=== PATIENT | male | born 1950 | race Caucasian/White ===

== ENCOUNTER → 2020-04-23 15:39 | Outpatient (CLI) | payer MEDICARE, OTHER, SELFPAY ==
--- NOTE | 2020-04-23 15:50 | RAD_ITS ---
STUDY: X-RAY - LEFT HAND REASON FOR EXAM: Male, 70 years old. PAIN IN BOTH HANDS. NO KNOWN INJURY. INFLAMMATORY POLYARTHROPATHY. UNABLE TO REMOVE RING OR SPREAD FINGERS VERY WELL. TECHNIQUE: 3 view(s) of the hand. COMPARISON: None. FINDINGS: Normal radiocarpal articulation. Normal distal radioulnar joint. Normal visualized carpal bones. Normal carpal articulations Normal carpometacarpal articulation of the thumb. Normal second through fifth carpometacarpal joints. Normal metacarpi. Normal metacarpophalangeal joint of the thumb. Normal interphalangeal joint of the thumb. Normal proximal and distal phalanges of the thumb. Normal metacarpophalangeal joints of the second through fifth fingers. Normal proximal and distal interphalangeal joints of the second through fifth fingers. Normal phalanges of the second through fifth fingers. The soft tissue structures are unremarkable. RAD/Hand Min 3 Views IMPRESSION: Normal x-ray examination of the hand. Electronically Signed: Chip Mcfadden MD at 20:27 EDT , Service support ,
--- NOTE | 2020-04-23 15:50 | RAD_ITS ---
STUDY: X-RAY - LEFT SHOULDER REASON FOR EXAM: Male, 70 years old. PAIN IN BOTH SHOULDERS. NO KNOWN INJURY. INFLAMMATORY POLYARTHROPATHY TECHNIQUE: 4 view(s) of the shoulder. COMPARISON: None. FINDINGS: Narrowed glenohumeral articulation. Narrowed acromioclavicular joint. Normal acromion. Normal humeral head and visualized proximal humerus. The soft tissue structures are unremarkable. Normal visualized pulmonary apex. RAD/Shoulder min 2 Views IMPRESSION: Degenerative osteoarthritic changes. No evidence for acute fracture Electronically Signed: Chip Mcfadden MD at 16:30 EDT , Service support ,
--- NOTE | 2020-04-23 15:50 | RAD_ITS ---
STUDY: X-RAY - RIGHT HAND REASON FOR EXAM: Male, 70 years old. PAIN IN BOTH HANDS. NO KNOWN INJURY. INFLAMMATORY POLYARTHROPATHY. TECHNIQUE: 3 view(s) of the hand. COMPARISON: None. FINDINGS: Normal radiocarpal articulation. Normal distal radioulnar joint. Normal visualized carpal bones. Normal carpal articulations Normal carpometacarpal articulation of the thumb. Normal second through fifth carpometacarpal joints. Normal metacarpi. Normal metacarpophalangeal joint of the thumb. Normal interphalangeal joint of the thumb. Normal proximal and distal phalanges of the thumb. Normal metacarpophalangeal joints of the second through fifth fingers. Normal proximal and distal interphalangeal joints of the second through fifth fingers. Normal phalanges of the second through fifth fingers. The soft tissue structures are unremarkable. RAD/Hand Min 3 Views IMPRESSION: Normal x-ray examination of the hand. Electronically Signed: Chip Mcfadden MD at 20:27 EDT , Service support ,
--- NOTE | 2020-04-23 15:50 | RAD_ITS ---
STUDY: X-RAY - RIGHT SHOULDER REASON FOR EXAM: Male, 70 years old. PAIN IN BOTH SHOULDERS. NO KNOWN INJURY. INFLAMMATORY POLYARTHROPATHY TECHNIQUE: 4 view(s) of the shoulder. COMPARISON: None. FINDINGS: Narrowed glenohumeral articulation. Minor spurring of the acromioclavicular joint.. Normal acromion. Normal humeral head and visualized proximal humerus. The soft tissue structures are unremarkable. Normal visualized pulmonary apex. RAD/Shoulder min 2 Views IMPRESSION: Degenerative changes. No evidence for acute fracture or other significant bony pathology Electronically Signed: Chip Mcfadden MD at 16:13 EDT , Service support ,
--- NOTE | 2020-04-23 16:18 | RAD_ITS ---
STUDY: X-RAY - PELVIS AND BILATERAL HIPS REASON FOR EXAM: Male, 70 years old. PAIN IN BOTH HIPS FOR A LONG TIME. NO KNOWN RECENT INJURY. INFLAMMATORY POLYARTHROPATHY. TECHNIQUE: AP view of the pelvis.? 2 views of the right hip, and 2 views of the left hip were obtained. COMPARISON: None. FINDINGS: There is a non-specific bowel gas pattern. Normal visualized soft tissue structures. Normal bilateral iliac wings, sacroiliac joints and visualized sacrum. Normal bilateral superior and inferior pubic rami. Normal pubic symphysis. Normal bilateral ischial tuberosities. There is mild narrowing of the hip joints bilaterally with minor acetabular spurring. RAD/Hips B/L min 2 views w/ Pelvis IMPRESSION: Mild degenerative changes of the hips. No acute fracture or other significant bony pathology. Electronically Signed: Chip Mcfadden MD at 20:27 EDT , Service support ,
[2020-04-23 18:14] LABS: Absolute Lymphocyte Count 1.39 X10^3/uL (0.83-4.51); Absolute Neutrophil Count 4.6 X10^3/uL (2.0-7.7); Basophil# 0.04 X10^3/uL; Basophil% 0.6 % (0-1); Eosinophil# 0.09 X10^3/uL; Eosinophils% 1.3 % (0-5); Hematocrit 45.9 % (40-54); Hemoglobin 15.3 g/dL (13.0-16.5); Lymphocyte # 1.39 X10^3/ul (4.0); Lymphocyte % 20.6 % (19-41); Mean Corp Hgb Conc 33.3 g/dL (32-36); Mean Corpuscular Hgb 30.6 pg (27.0-32.0); Mean Corpuscular Volume 91.8 fL (80-94); Mean Platelet Vol. 10.1 fl (6.2-12.0); Monocyte# 0.59 X10^3/uL; Monocyte% 8.7 % (0-10); NRBC Flagged by Analyzer 0 % (0-5); Neutrophil # 4.61 X10^3/uL (2.7-7.7); Neutrophil % 68.4 % (47-70); Platelet Count 222 K/mm3 (150-450); RBC Distribution Width CV 12.7 % (11.6-14.6); RBC Distribution Width SD 42.6 fl (35.1-43.9); White Blood Count 6.8 K/mm3 (4.4-11.0)
[2020-04-23 18:31] LABS: ALB/GLOB Ratio 1.1 RATIO (0.9-2.4); AST(SGOT) 18 U/L (15-37); Alanine Aminotransfer ALT/SGPT 22 U/L (16-61); Albumin, Serum 4.3 g/dL (3.2-5.0); Alkaline Phosphatase 113 U/L (45-117); Anion Gap 2 (5-15); BUN 17 mg/dL (7-18); BUN/Creat Ratio 21.4 RATIO (10-20); Calcium,Total 10.4 mg/dL (8.5-10.1); Chloride 107 mmol/L (98-107); EST Glomerular Filtration Rate 103 mL/min (>60); Est Glom Filt Rate - Afr Amer 124 mL/min (>60); Globulin 3.8 g/dL (2.2-4.2); Glucose 91 mg/dL (74-106); Potassium 3.5 mmol/L (3.5-5.1); Protein, Total 8.1 g/dL (6.4-8.2); Rheumatoid Factor < 10.0 IU/mL (<15); Sodium Level 140 mmol/L (136-145)
[2020-04-24 10:41] LABS: Hepatitis B Surface Antibody Non-Reactive; Hepatitis B Surface Antigen Non-Reactive (Nonreactive); Hepatitis C Antibody Non-Reactive (Nonreactive)
[2020-04-25 12:22] LABS: ANTINUCLEAR ANTIBODIES DIRECT Negative (Negative)
[2020-04-26 06:03] LABS: CCP IgG Antibodies 13 units (0-19); Hepatitis B Core AB IgM Negative (Negative)
== END ==
PROVIDERS: Referring Provider Internal Medicine Rheumatology; Visit Provider Internal Medicine Rheumatology
DX: M06.4 Inflammatory polyarthropathy (principal); H35.30 Unspecified macular degeneration; I25.10 Atherosclerotic heart disease of native coronary artery without angina pectoris; I10 Essential (primary) hypertension; E03.9 Hypothyroidism, unspecified; E78.5 Hyperlipidemia, unspecified
CPT/HCPCS: 36415; 73030; 73130; 73521; 80053; 85025; 86038; 86200; 86431; 86705; 86706; 86803; 87340

== ENCOUNTER → 2020-06-05 11:41 | Outpatient (CLI) | payer MEDICARE, OTHER, SELFPAY ==
[2020-06-05 15:13] LABS: Absolute Lymphocyte Count 0.81 X10^3/uL (0.83-4.51); Absolute Neutrophil Count 6.1 X10^3/uL (2.0-7.7); Basophil# 0.04 X10^3/uL; Basophil% 0.5 % (0-1); Eosinophil# 0.02 X10^3/uL; Eosinophils% 0.3 % (0-5); Hematocrit 49.1 % (40-54); Hemoglobin 15.8 g/dL (13.0-16.5); Lymphocyte # 0.81 X10^3/ul (4.0); Lymphocyte % 11.1 % (19-41); Mean Corp Hgb Conc 32.2 g/dL (32-36); Mean Corpuscular Volume 93.3 fL (80-94); Mean Platelet Vol. 9.7 fl (6.2-12.0); Monocyte# 0.24 X10^3/uL; Monocyte% 3.3 % (0-10); NRBC Flagged by Analyzer 0 % (0-5); Neutrophil # 6.09 X10^3/uL (2.7-7.7); Neutrophil % 83.4 % (47-70); Platelet Count 221 K/mm3 (150-450); RBC Distribution Width CV 13.4 % (11.6-14.6); RBC Distribution Width SD 45.2 fl (35.1-43.9); Red Blood Count 5.26 M/mm3 (4.6-6.2); White Blood Count 7.3 K/mm3 (4.4-11.0)
[2020-06-05 15:38] LABS: ALB/GLOB Ratio 1.2 RATIO (0.9-2.4); AST(SGOT) 22 U/L (15-37); Alanine Aminotransfer ALT/SGPT 31 U/L (16-61); Albumin, Serum 4.2 g/dL (3.2-5.0); Alkaline Phosphatase 99 U/L (45-117); Anion Gap 6 (5-15); BUN 19 mg/dL (7-18); BUN/Creat Ratio 21.2 RATIO (10-20); Calcium,Total 10.7 mg/dL (8.5-10.1); Chloride 102 mmol/L (98-107); EST Glomerular Filtration Rate 90 mL/min (>60); Est Glom Filt Rate - Afr Amer 109 mL/min (>60); Globulin 3.6 g/dL (2.2-4.2); Glucose 117 mg/dL (74-106); Protein, Total 7.8 g/dL (6.4-8.2); Sodium Level 138 mmol/L (136-145)
[2020-06-05 15:59] LABS: PTHIN 92.4 pg/mL (18.4-80.1)
== END ==
PROVIDERS: Referring Provider Internal Medicine Rheumatology; Visit Provider Internal Medicine Rheumatology
DX: M06.4 Inflammatory polyarthropathy (principal); H35.30 Unspecified macular degeneration; I25.10 Atherosclerotic heart disease of native coronary artery without angina pectoris; I10 Essential (primary) hypertension; E03.9 Hypothyroidism, unspecified; E78.5 Hyperlipidemia, unspecified
CPT/HCPCS: 36415; 80053; 83970; 85025

== ENCOUNTER → 2020-06-22 10:17 | Outpatient (CLI) | payer MEDICARE, OTHER, SELFPAY ==
[2020-06-22 09:22] VITALS: BMI 27.6
[2020-06-22 12:41] LABS: Vitamin D,25 Hydroxy 28.2 ng/mL
[2020-06-22 12:54] LABS: Calcium,Total 11.2 mg/dL (8.5-10.1)
== END ==
PROVIDERS: Visit Provider Internal Medicine Endocrinology, Diabetes & Metabolism
DX: E21.0 Primary hyperparathyroidism (principal); E55.9 Vitamin D deficiency, unspecified
CPT/HCPCS: 36415; 82306; 82310

== ENCOUNTER → 2020-08-03 12:33 | Outpatient (CLI) | payer MEDICARE, OTHER, SELFPAY ==
[2020-06-22 09:22] VITALS: BMI 27.6
[2020-08-03 15:18] LABS: Absolute Lymphocyte Count 0.88 X10^3/uL (0.83-4.51); Absolute Neutrophil Count 5.4 X10^3/uL (2.0-7.7); Basophil# 0.05 X10^3/uL; Basophil% 0.7 % (0-1); Eosinophil# 0.04 X10^3/uL; Eosinophils% 0.6 % (0-5); Hemoglobin 14.9 g/dL (13.0-16.5); Lymphocyte # 0.88 X10^3/ul (4.0); Lymphocyte % 12.9 % (19-41); Mean Corp Hgb Conc 33.1 g/dL (32-36); Mean Corpuscular Hgb 31.6 pg (27.0-32.0); Mean Corpuscular Volume 95.3 fL (80-94); Mean Platelet Vol. 9.7 fl (6.2-12.0); Monocyte# 0.32 X10^3/uL; Monocyte% 4.7 % (0-10); NRBC Flagged by Analyzer 0 % (0-5); Neutrophil % 78.9 % (47-70); Platelet Count 212 K/mm3 (150-450); RBC Distribution Width CV 13.6 % (11.6-14.6); RBC Distribution Width SD 47.5 fl (35.1-43.9); Red Blood Count 4.72 M/mm3 (4.6-6.2); White Blood Count 6.8 K/mm3 (4.4-11.0)
[2020-08-03 15:24] LABS: PTHIN 70.5 pg/mL (18.4-80.1)
[2020-08-03 15:28] LABS: Vitamin D,25 Hydroxy 20.3 ng/mL
[2020-08-03 15:34] LABS: ALB/GLOB Ratio 1.2 RATIO (0.9-2.4); AST(SGOT) 15 U/L (15-37); Alanine Aminotransfer ALT/SGPT 24 U/L (16-61); Albumin, Serum 4.1 g/dL (3.2-5.0); Alkaline Phosphatase 105 U/L (45-117); Anion Gap 4 (5-15); BUN 16 mg/dL (7-18); BUN/Creat Ratio 18.5 RATIO (10-20); Calcium,Total 11.1 mg/dL (8.5-10.1); Chloride 107 mmol/L (98-107); Creatinine, Serum 0.86 mg/dL (0.70-1.30); EST Glomerular Filtration Rate 93 mL/min (>60); Est Glom Filt Rate - Afr Amer 113 mL/min (>60); Globulin 3.4 g/dL (2.2-4.2); Glucose 109 mg/dL (74-106); Potassium 4.2 mmol/L (3.5-5.1); Protein, Total 7.5 g/dL (6.4-8.2); Sodium Level 140 mmol/L (136-145)
== END ==
PROVIDERS: Internal Medicine Endocrinology, Diabetes & Metabolism; Referring Provider Internal Medicine Rheumatology; Visit Provider Internal Medicine Rheumatology
DX: M06.4 Inflammatory polyarthropathy (principal); H35.30 Unspecified macular degeneration; I25.10 Atherosclerotic heart disease of native coronary artery without angina pectoris; I10 Essential (primary) hypertension; E03.9 Hypothyroidism, unspecified; E78.5 Hyperlipidemia, unspecified; E21.3 Hyperparathyroidism, unspecified; Z79.899 Other long term (current) drug therapy
CPT/HCPCS: 36415; 80053; 82306; 83970; 85025

== ENCOUNTER → 2020-09-15 12:13 | Outpatient (CLI) | payer MEDICARE, OTHER, SELFPAY ==
[2020-06-22 09:22] VITALS: BMI 27.6
[2020-09-15 15:32] LABS: Absolute Lymphocyte Count 0.89 X10^3/uL (0.83-4.51); Absolute Neutrophil Count 6.3 X10^3/uL (2.0-7.7); Basophil# 0.07 X10^3/uL; Basophil% 0.9 % (0-1); Eosinophil# 0.03 X10^3/uL; Eosinophils% 0.4 % (0-5); Hematocrit 45.9 % (40-54); Hemoglobin 15.5 g/dL (13.0-16.5); Lymphocyte # 0.89 X10^3/ul (4.0); Lymphocyte % 11.2 % (19-41); Mean Corp Hgb Conc 33.8 g/dL (32-36); Mean Corpuscular Hgb 32.9 pg (27.0-32.0); Mean Corpuscular Volume 97.5 fL (80-94); Mean Platelet Vol. 10.1 fl (6.2-12.0); Monocyte# 0.49 X10^3/uL; Monocyte% 6.2 % (0-10); NRBC Flagged by Analyzer 0 % (0-5); Neutrophil % 79.3 % (47-70); Platelet Count 212 K/mm3 (150-450); RBC Distribution Width CV 13.2 % (11.6-14.6); RBC Distribution Width SD 46.4 fl (35.1-43.9); Red Blood Count 4.71 M/mm3 (4.6-6.2); White Blood Count 7.9 K/mm3 (4.4-11.0)
[2020-09-15 15:36] LABS: Calcium,Total 10.8 mg/dL (8.5-10.1)
[2020-09-15 15:42] LABS: Vitamin D,25 Hydroxy 33.1 ng/mL
[2020-09-15 15:53] LABS: ALB/GLOB Ratio 1.3 RATIO (0.9-2.4); AST(SGOT) 24 U/L (15-37); Alanine Aminotransfer ALT/SGPT 42 U/L (16-61); Albumin, Serum 4.4 g/dL (3.2-5.0); Alkaline Phosphatase 113 U/L (45-117); Anion Gap 4 (5-15); BUN 14 mg/dL (7-18); BUN/Creat Ratio 14.3 RATIO (10-20); Calcium,Total 10.8 mg/dL (8.5-10.1); Chloride 105 mmol/L (98-107); Creatinine, Serum 0.98 mg/dL (0.70-1.30); EST Glomerular Filtration Rate 81 mL/min (>60); Est Glom Filt Rate - Afr Amer 97 mL/min (>60); Globulin 3.3 g/dL (2.2-4.2); Glucose 106 mg/dL (74-106); Protein, Total 7.7 g/dL (6.4-8.2); Sodium Level 139 mmol/L (136-145)
[2020-09-16 09:09] LABS: PTHIN 73.2 pg/mL (18.4-80.1)
== END ==
PROVIDERS: Internal Medicine Endocrinology, Diabetes & Metabolism; Referring Provider Internal Medicine Rheumatology; Visit Provider Internal Medicine Rheumatology
DX: M06.4 Inflammatory polyarthropathy (principal); H35.30 Unspecified macular degeneration; M25.512 Pain in left shoulder; I25.10 Atherosclerotic heart disease of native coronary artery without angina pectoris; I10 Essential (primary) hypertension; E03.9 Hypothyroidism, unspecified; E78.5 Hyperlipidemia, unspecified; E21.3 Hyperparathyroidism, unspecified; Z79.899 Other long term (current) drug therapy
CPT/HCPCS: 36415; 80053; 82306; 82310; 83970; 85025

== ENCOUNTER → 2020-11-16 07:38 | Outpatient (CLI) | payer MEDICARE, OTHER, SELFPAY ==
[2020-09-22 12:29] VITALS: BMI 27.6
[2020-11-16 09:49] LABS: Hematocrit 42.5 % (40-54); Hemoglobin 14.2 g/dL (13.0-16.5); Mean Corp Hgb Conc 33.4 g/dL (32-36); Mean Corpuscular Volume 95.7 fL (80-94); Mean Platelet Vol. 9.8 fl (6.2-12.0); Platelet Count 177 K/mm3 (150-450); RBC Distribution Width CV 12.8 % (11.6-14.6); RBC Distribution Width SD 44.6 fl (35.1-43.9); Red Blood Count 4.44 M/mm3 (4.6-6.2); White Blood Count 5.9 K/mm3 (4.4-11.0)
[2020-11-16 10:36] LABS: PTHIN 93.7 pg/mL (18.4-80.1)
[2020-11-16 10:39] LABS: Vitamin D,25 Hydroxy 31.5 ng/mL
[2020-11-16 10:51] LABS: Hemoglobin A1c 5.8 % (3.8-5.6)
[2020-11-16 11:00] LABS: ALB/GLOB Ratio 1.3 RATIO (0.9-2.4); AST(SGOT) 22 U/L (15-37); Alanine Aminotransfer ALT/SGPT 43 U/L (16-61); Albumin, Serum 4.1 g/dL (3.2-5.0); Alkaline Phosphatase 108 U/L (45-117); Anion Gap 8 (5-15); BUN 19 mg/dL (7-18); BUN/Creat Ratio 20.7 RATIO (10-20); CPK Total, Creatine Kinase 74 U/L (39-308); Chloride 105 mmol/L (98-107); Creatinine, Serum 0.92 mg/dL (0.70-1.30); EST Glomerular Filtration Rate 87 mL/min (>60); Est Glom Filt Rate - Afr Amer 105 mL/min (>60); Ferritin 138 ng/mL (26-388); Globulin 3.1 g/dL (2.2-4.2); Glucose 112 mg/dL (74-106); LDH 170 U/L (87-241); Magnesium 2.2 mg/dL (1.6-2.6); Phosphorus 2.5 mg/dL (2.5-4.9); Potassium 3.3 mmol/L (3.5-5.1); Protein, Total 7.2 g/dL (6.4-8.2); Sodium Level 141 mmol/L (136-145); T4 Free Direct 1.24 ng/dL (0.76-1.46); Thyroid Stim Hormone (TSH) 2.76 uIU/mL (0.358-3.74); Uric Acid 4.2 mg/dL (3.5-7.2)
[2020-11-18 15:42] LABS: Vitamin D 1,25-Dihydroxy 55.1 pg/mL (19.9-79.3)
== END ==
PROVIDERS: PCP Family Medicine; Referring Provider Internal Medicine Endocrinology, Diabetes & Metabolism; Visit Provider Internal Medicine Endocrinology, Diabetes & Metabolism
DX: E03.9 Hypothyroidism, unspecified (principal); I10 Essential (primary) hypertension; E55.9 Vitamin D deficiency, unspecified; E21.3 Hyperparathyroidism, unspecified; E11.65 Type 2 diabetes mellitus with hyperglycemia; Z79.52 Long term (current) use of systemic steroids
CPT/HCPCS: 36415; 80053; 82306; 82330; 82550; 82652; 82728; 83036; 83615; 83735; 83970; 84100; 84439; 84443; 84550; 85027

== ENCOUNTER → 2020-11-17 13:47 | Outpatient (CLI) | payer MEDICARE, OTHER, SELFPAY ==
[2020-09-22 12:29] VITALS: BMI 27.6
[2020-11-17 16:33] LABS: 24HR. Urine Creatinine 1.47 g/24 HR (0.90-2.10)
[2020-11-17 16:34] LABS: (24 HR) Urine Calcium 155.4 mg/24 HR (42.0-353.0); 24HR UR TOTAL VOLUME 1850 ml; Calcium Urine pH Range 1; Urine Calcium (Random) 8.4 (Not Estab.)
== END ==
PROVIDERS: PCP Family Medicine; Referring Provider Internal Medicine Endocrinology, Diabetes & Metabolism; Visit Provider Internal Medicine Endocrinology, Diabetes & Metabolism
DX: E03.9 Hypothyroidism, unspecified (principal); I10 Essential (primary) hypertension; E55.9 Vitamin D deficiency, unspecified; E21.3 Hyperparathyroidism, unspecified; Z79.52 Long term (current) use of systemic steroids
CPT/HCPCS: 81050; 82340; 82570

== ENCOUNTER → 2020-12-03 11:46 | Outpatient (CLI) | payer MEDICARE, OTHER, SELFPAY ==
[2020-09-22 12:29] VITALS: BMI 27.6
[2020-12-03 15:12] LABS: Absolute Lymphocyte Count 0.58 X10^3/uL (0.83-4.51); Absolute Neutrophil Count 5.8 X10^3/uL (2.0-7.7); Basophil# 0.05 X10^3/uL; Basophil% 0.7 % (0-1); Eosinophil# 0.07 X10^3/uL; Eosinophils% 0.9 % (0-5); Hematocrit 43.6 % (40-54); Hemoglobin 14.6 g/dL (13.0-16.5); Lymphocyte # 0.58 X10^3/ul (4.0); Lymphocyte % 7.7 % (19-41); Mean Corp Hgb Conc 33.5 g/dL (32-36); Mean Corpuscular Hgb 32.5 pg (27.0-32.0); Mean Corpuscular Volume 97.1 fL (80-94); Monocyte# 0.92 X10^3/uL; Monocyte% 12.2 % (0-10); NRBC Flagged by Analyzer 0 % (0-5); Neutrophil # 5.83 X10^3/uL (2.7-7.7); Neutrophil % 77.3 % (47-70); POSITIVE DIFFERENTIAL YES; Platelet Count 177 K/mm3 (150-450); RBC Distribution Width CV 13.1 % (11.6-14.6); RBC Distribution Width SD 46.8 fl (35.1-43.9); Red Blood Count 4.49 M/mm3 (4.6-6.2); White Blood Count 7.5 K/mm3 (4.4-11.0)
[2020-12-03 15:14] LABS: Differential Indicated SCAN CRITERIA MET
[2020-12-03 15:44] LABS: BUN 19 mg/dL (7-18); Glucose 100 mg/dL (74-106)
[2020-12-03 15:45] LABS: ALB/GLOB Ratio 1.3 RATIO (0.9-2.4); AST(SGOT) 26 U/L (15-37); Alanine Aminotransfer ALT/SGPT 39 U/L (16-61); Albumin, Serum 4.3 g/dL (3.2-5.0); Alkaline Phosphatase 110 U/L (45-117); Anion Gap 4 (5-15); Calcium,Total 10.5 mg/dL (8.5-10.1); Chloride 106 mmol/L (98-107); EST Glomerular Filtration Rate 79 mL/min (>60); Est Glom Filt Rate - Afr Amer 95 mL/min (>60); Globulin 3.2 g/dL (2.2-4.2); Potassium 4.2 mmol/L (3.5-5.1); Protein, Total 7.5 g/dL (6.4-8.2); Sodium Level 140 mmol/L (136-145)
== END ==
PROVIDERS: PCP Family Medicine; Referring Provider Internal Medicine Rheumatology; Visit Provider Internal Medicine Rheumatology
DX: M06.4 Inflammatory polyarthropathy (principal); H35.30 Unspecified macular degeneration; I25.10 Atherosclerotic heart disease of native coronary artery without angina pectoris; I10 Essential (primary) hypertension; E03.9 Hypothyroidism, unspecified; E78.5 Hyperlipidemia, unspecified; E21.3 Hyperparathyroidism, unspecified; Z79.899 Other long term (current) drug therapy
CPT/HCPCS: 36415; 80053; 85025

== ENCOUNTER → 2021-01-29 07:39 | Outpatient (CLI) | payer MEDICARE, OTHER, SELFPAY ==
[2020-09-22 12:29] VITALS: BMI 27.6
[2021-01-29 10:40] LABS: PTHIN 99.3 pg/mL (18.4-80.1)
[2021-01-29 10:48] LABS: Phosphorus 2.3 mg/dL (2.5-4.9)
[2021-01-29 11:08] LABS: Calcium, Urine (Random) 13.5 mg/dL (Not Estab.)
[2021-02-02 15:50] LABS: Vitamin D 1,25-Dihydroxy 35.3 pg/mL (19.9-79.3)
[2021-02-03 12:08] LABS: Aldosterone, Serum 3.6 ng/dL (0.0-30.0); Renin, Plasma < 0.167 ng/mL/hr (0.167-5.380)
[2021-02-03 13:06] LABS: Thyroid Peroxidase AB 16 IU/mL (0-34)
== END ==
PROVIDERS: PCP Family Medicine; Referring Provider Internal Medicine Endocrinology, Diabetes & Metabolism; Visit Provider Internal Medicine Endocrinology, Diabetes & Metabolism
DX: E21.3 Hyperparathyroidism, unspecified (principal); E03.9 Hypothyroidism, unspecified
CPT/HCPCS: 36415; 82088; 82306; 82330; 82340; 82570; 82652; 83970; 84100; 84244; 86376

== ENCOUNTER → 2021-03-01 08:12 | Outpatient (CLI) | payer MEDICARE, OTHER, SELFPAY ==
[2020-09-22 12:29] VITALS: BMI 27.6
[2021-03-01 10:16] LABS: Absolute Lymphocyte Count 1.05 X10^3/uL (0.83-4.51); Absolute Neutrophil Count 5.7 X10^3/uL (2.0-7.7); Basophil# 0.07 X10^3/uL; Basophil% 0.9 % (0-1); Eosinophil# 0.07 X10^3/uL; Eosinophils% 0.9 % (0-5); Hematocrit 43.9 % (40-54); Hemoglobin 14.9 g/dL (13.0-16.5); Lymphocyte # 1.05 X10^3/ul (0.83-4.51); Lymphocyte % 13.6 % (19-41); Mean Corp Hgb Conc 33.9 g/dL (32-36); Mean Corpuscular Hgb 32.7 pg (27.0-32.0); Mean Corpuscular Volume 96.5 fL (80-94); Mean Platelet Vol. 9.6 fl (6.2-12.0); Monocyte# 0.59 X10^3/uL; Monocyte% 7.6 % (0-10); NRBC Flagged by Analyzer 0 % (0-5); Neutrophil # 5.73 X10^3/uL (2.7-7.7); Neutrophil % 74.2 % (47-70); Platelet Count 200 K/mm3 (150-450); RBC Distribution Width SD 45.3 fl (35.1-43.9); Red Blood Count 4.55 M/mm3 (4.6-6.2); White Blood Count 7.7 K/mm3 (4.4-11.0)
[2021-03-01 10:30] LABS: ALB/GLOB Ratio 1.5 RATIO (0.9-2.4); AST(SGOT) 20 U/L (15-37); Alanine Aminotransfer ALT/SGPT 43 U/L (16-61); Alkaline Phosphatase 98 U/L (45-117); Anion Gap 7 (5-15); BUN 22 mg/dL (7-18); BUN/Creat Ratio 20.6 RATIO (10-20); Calcium,Total 10.1 mg/dL (8.5-10.1); Chloride 104 mmol/L (98-107); Creatinine, Serum 1.07 mg/dL (0.70-1.30); EST Glomerular Filtration Rate 73 mL/min (>60); Est Glom Filt Rate - Afr Amer 88 mL/min (>60); Globulin 2.7 g/dL (2.2-4.2); Glucose 167 mg/dL (74-106); PSA,Total - Annual Screen 8.45 ng/mL (0.00-4.00); Potassium 3.7 mmol/L (3.5-5.1); Protein, Total 6.7 g/dL (6.4-8.2); Sodium Level 142 mmol/L (136-145)
== END ==
PROVIDERS: PCP Family Medicine; Referring Provider Urology; Visit Provider Urology
DX: M06.4 Inflammatory polyarthropathy (principal); H35.30 Unspecified macular degeneration; I25.10 Atherosclerotic heart disease of native coronary artery without angina pectoris; I10 Essential (primary) hypertension; E03.9 Hypothyroidism, unspecified; E78.5 Hyperlipidemia, unspecified; R97.20 Elevated prostate specific antigen [PSA]; Z79.899 Other long term (current) drug therapy; Z12.5 Encounter for screening for malignant neoplasm of prostate
CPT/HCPCS: 36415; 80053; 84153; 85025; G0103

== ENCOUNTER → 2021-04-29 13:36 | Outpatient (CLI) | payer MEDICARE, OTHER, SELFPAY ==
[2020-09-22 12:29] VITALS: BMI 27.6
[2021-04-29 15:01] LABS: Absolute Lymphocyte Count 1.49 X10^3/uL (0.83-4.51); Absolute Neutrophil Count 5.5 X10^3/uL (2.0-7.7); Basophil# 0.05 X10^3/uL; Basophil% 0.6 % (0-1); Eosinophil# 0.15 X10^3/uL; Eosinophils% 1.9 % (0-5); Hematocrit 44.1 % (40-54); Hemoglobin 15.2 g/dL (13.0-16.5); Lymphocyte # 1.49 X10^3/ul (0.83-4.51); Lymphocyte % 18.8 % (19-41); Mean Corp Hgb Conc 34.5 g/dL (32-36); Mean Corpuscular Hgb 32.6 pg (27.0-32.0); Mean Corpuscular Volume 94.6 fL (80-94); Mean Platelet Vol. 10.2 fl (6.2-12.0); Monocyte# 0.66 X10^3/uL; Monocyte% 8.3 % (0-10); NRBC Flagged by Analyzer 0 % (0-5); Neutrophil # 5.53 X10^3/uL (2.7-7.7); Neutrophil % 69.9 % (47-70); Platelet Count 216 K/mm3 (150-450); RBC Distribution Width CV 13.1 % (11.6-14.6); RBC Distribution Width SD 44.8 fl (35.1-43.9); Red Blood Count 4.66 M/mm3 (4.6-6.2); White Blood Count 7.9 K/mm3 (4.4-11.0)
[2021-04-29 15:30] LABS: ALB/GLOB Ratio 1.3 RATIO (0.9-2.4); AST(SGOT) 67 U/L (15-37); Alanine Aminotransfer ALT/SGPT 92 U/L (16-61); Albumin, Serum 4.1 g/dL (3.2-5.0); Alkaline Phosphatase 102 U/L (45-117); Anion Gap 6 (5-15); BUN 16 mg/dL (7-18); BUN/Creat Ratio 18.1 RATIO (10-20); Calcium,Total 10.3 mg/dL (8.5-10.1); Chloride 106 mmol/L (98-107); Creatinine, Serum 0.88 mg/dL (0.70-1.30); EST Glomerular Filtration Rate 91 mL/min (>60); Est Glom Filt Rate - Afr Amer 110 mL/min (>60); Globulin 3.1 g/dL (2.2-4.2); Glucose 95 mg/dL (74-106); Potassium 3.7 mmol/L (3.5-5.1); Protein, Total 7.2 g/dL (6.4-8.2); Sodium Level 140 mmol/L (136-145)
== END ==
PROVIDERS: PCP Family Medicine; Referring Provider Internal Medicine Rheumatology; Visit Provider Internal Medicine Rheumatology
DX: M06.4 Inflammatory polyarthropathy (principal); H35.30 Unspecified macular degeneration; I25.10 Atherosclerotic heart disease of native coronary artery without angina pectoris; I10 Essential (primary) hypertension; E03.9 Hypothyroidism, unspecified; E78.5 Hyperlipidemia, unspecified; Z79.899 Other long term (current) drug therapy
CPT/HCPCS: 36415; 80053; 85025

== ENCOUNTER → 2021-05-13 07:22 | Outpatient (CLI) | payer MEDICARE, OTHER, SELFPAY ==
[2021-05-13 11:22] LABS: PTHIN 101.3 pg/mL (18.4-80.1); Vitamin D,25 Hydroxy 38.1 ng/mL
[2021-05-13 11:36] LABS: ALB/GLOB Ratio 1.3 RATIO (0.9-2.4); AST(SGOT) 15 U/L (15-37); Alanine Aminotransfer ALT/SGPT 36 U/L (16-61); Alkaline Phosphatase 99 U/L (45-117); Anion Gap 5 (5-15); BUN 16 mg/dL (7-18); BUN/Creat Ratio 19.4 RATIO (10-20); Calcium,Total 10.3 mg/dL (8.5-10.1); Chloride 107 mmol/L (98-107); Creatinine, Serum 0.83 mg/dL (0.70-1.30); EST Glomerular Filtration Rate 98 mL/min (>60); Est Glom Filt Rate - Afr Amer 119 mL/min (>60); Glucose 104 mg/dL (74-106); Magnesium 2.4 mg/dL (1.6-2.6); Potassium 3.6 mmol/L (3.5-5.1); Sodium Level 142 mmol/L (136-145); T4 Free Direct 1.05 ng/dL (0.76-1.46); Thyroid Stim Hormone (TSH) 3.48 uIU/mL (0.358-3.74)
== END ==
PROVIDERS: PCP Family Medicine; Referring Provider Internal Medicine Endocrinology, Diabetes & Metabolism; Visit Provider Internal Medicine Endocrinology, Diabetes & Metabolism
DX: E21.3 Hyperparathyroidism, unspecified (principal); E03.9 Hypothyroidism, unspecified; R68.89 Other general symptoms and signs; Z79.52 Long term (current) use of systemic steroids
CPT/HCPCS: 36415; 80053; 82306; 82330; 83735; 83970; 84439; 84443

== ENCOUNTER → 2021-05-26 08:53 | Outpatient (CLI) | payer MEDICARE, OTHER, SELFPAY ==
--- NOTE | 2021-05-26 08:56 | NM_ITS ---
CLINICAL: 71-year-old male with reported history of clinical hyperparathyroidism, mild hypercalcemia and elevation of the serum parathyroid hormone level. 99m Tc SESTAMIBI DUAL PHASE PARATHYROID SCINTIGRAPHY COMPARISON: None available FINDINGS: Following the intravenous administration of 25.4 mCi of 99m Tc sestamibi, image acquisitions of the anterior neck at approximately 15 minutes and 3.0 hours post radiopharmaceutical provision reveal: 1. Immediate static blood pool acquisitions demonstrate uniform distribution of the radiopharmaceutical to right-left thyroid colloid of a vaguely U-shaped thyroid gland. 2. Delayed images depict symmetric incomplete washout of the radiotracer from the right-left thyroid beds without evidence of focal retention of the radiopharmaceutical readily identified. NM/Parathyroid Scan IMPRESSION: 1. NEGATIVE 99m Tc SESTAMIBI PARATHYROID IMAGING DUAL PHASE EXAMINATION. 2. There is no definitive scintigraphic evidence of parathyroid adenoma on the current evaluation. Electronically Signed: Mingo Arias DO at 22:04 EDT Tel , Service support ,
== END ==
PROVIDERS: PCP Nurse Practitioner Family; Referring Provider Internal Medicine Endocrinology, Diabetes & Metabolism; Visit Provider Internal Medicine Endocrinology, Diabetes & Metabolism
DX: E21.3 Hyperparathyroidism, unspecified (principal)
CPT/HCPCS: 78070; A9500

== ENCOUNTER → 2021-05-28 07:23 | Outpatient (CLI) | payer MEDICARE, OTHER, SELFPAY ==
[2021-05-28 10:37] LABS: Anion Gap 7 (5-15); BUN 11 mg/dL (7-18); BUN/Creat Ratio 12.7 RATIO (10-20); Chloride 105 mmol/L (98-107); Creatinine, Serum 0.87 mg/dL (0.70-1.30); EST Glomerular Filtration Rate 93 mL/min (>60); Est Glom Filt Rate - Afr Amer 112 mL/min (>60); Glucose 110 mg/dL (74-106); Potassium 3.8 mmol/L (3.5-5.1); Sodium Level 139 mmol/L (136-145)
[2021-05-28 11:25] LABS: Calcium, Urine (Random) 14.4 mg/dL (Not Estab.)
== END ==
PROVIDERS: PCP Nurse Practitioner Family; Referring Provider Internal Medicine Endocrinology, Diabetes & Metabolism; Visit Provider Internal Medicine Endocrinology, Diabetes & Metabolism
DX: E21.3 Hyperparathyroidism, unspecified (principal); E03.9 Hypothyroidism, unspecified; R68.89 Other general symptoms and signs; Z79.52 Long term (current) use of systemic steroids
CPT/HCPCS: 36415; 80048; 82330; 82340; 82570; 83970

== ENCOUNTER → 2021-06-04 12:14 | Outpatient (CLI) | payer MEDICARE, OTHER, SELFPAY ==
[2021-06-04 17:03] LABS: ALB/GLOB Ratio 1.2 RATIO (0.9-2.4); AST(SGOT) 18 U/L (15-37); Alanine Aminotransfer ALT/SGPT 35 U/L (16-61); Alkaline Phosphatase 104 U/L (45-117); Anion Gap 4 (5-15); BUN 19 mg/dL (7-18); BUN/Creat Ratio 20.7 RATIO (10-20); Calcium,Total 10.6 mg/dL (8.5-10.1); Chloride 106 mmol/L (98-107); Creatinine, Serum 0.92 mg/dL (0.70-1.30); EST Glomerular Filtration Rate 87 mL/min (>60); Est Glom Filt Rate - Afr Amer 105 mL/min (>60); Globulin 3.4 g/dL (2.2-4.2); Glucose 113 mg/dL (74-106); Potassium 4.2 mmol/L (3.5-5.1); Protein, Total 7.4 g/dL (6.4-8.2); Sodium Level 141 mmol/L (136-145)
[2021-06-07 20:08] LABS: Red Blood Cell Count Test/G6PD 5.06 x10E6/uL (4.14-5.80)
[2021-06-07 22:02] LABS: G6PD Quant Test 295 (127-427)
== END ==
PROVIDERS: PCP Nurse Practitioner Family; Referring Provider Internal Medicine Rheumatology; Visit Provider Internal Medicine Rheumatology
DX: M06.4 Inflammatory polyarthropathy (principal); H35.30 Unspecified macular degeneration; I25.10 Atherosclerotic heart disease of native coronary artery without angina pectoris; I10 Essential (primary) hypertension; E03.9 Hypothyroidism, unspecified; E78.5 Hyperlipidemia, unspecified; E83.52 Hypercalcemia; Z79.899 Other long term (current) drug therapy
CPT/HCPCS: 36415; 80053; 82955

== ENCOUNTER → 2021-09-02 09:16 | Outpatient (CLI) | payer MEDICARE, OTHER, SELFPAY ==
[2021-09-02 11:22] LABS: Calcium, Urine (Random) 22.4 mg/dL (Not Estab.)
[2021-09-02 11:36] LABS: PTHIN 99.9 pg/mL (18.4-80.1); Vitamin D,25 Hydroxy 25.8 ng/mL
[2021-09-02 11:46] LABS: ALB/GLOB Ratio 1.2 RATIO (0.9-2.4); AST(SGOT) 39 U/L (15-37); Alanine Aminotransfer ALT/SGPT 68 U/L (16-61); Albumin, Serum 4.1 g/dL (3.2-5.0); Alkaline Phosphatase 120 U/L (45-117); Anion Gap 7 (5-15); BUN 18 mg/dL (7-18); BUN/Creat Ratio 20.5 RATIO (10-20); Calcium,Total 10.5 mg/dL (8.5-10.1); Chloride 107 mmol/L (98-107); Creatinine, Serum 0.88 mg/dL (0.70-1.30); EST Glomerular Filtration Rate 92 mL/min (>60); Est Glom Filt Rate - Afr Amer 111 mL/min (>60); Free T3 2.8 pg/mL (2.18-3.98); Globulin 3.5 g/dL (2.2-4.2); Glucose 108 mg/dL (74-106); Magnesium 2.6 mg/dL (1.6-2.6); Phosphorus 1.9 mg/dL (2.5-4.9); Potassium 3.3 mmol/L (3.5-5.1); Protein, Total 7.6 g/dL (6.4-8.2); Sodium Level 142 mmol/L (136-145); T4 Free Direct 1.15 ng/dL (0.76-1.46)
[2021-09-03 17:07] LABS: PROEL- A/G Ratio 1.4 (0.7-1.7); PROEL- Alpha-1 Globulin 0.2 g/dL (0.0-0.4); PROEL- Alpha-2 Globulin 0.9 g/dL (0.4-1.0); PROEL- Gamma Globulin 0.7 g/dL (0.4-1.8); PROEL- Globulin, Total 2.8 g/dL (2.2-3.9); PROEL- TOTAL PROTEIN 6.8 g/dL (6.0-8.5)
[2021-09-05 14:56] LABS: Vitamin D 1,25-Dihydroxy 46.8 pg/mL (19.9-79.3)
== END ==
PROVIDERS: PCP Nurse Practitioner Family; Referring Provider Internal Medicine Endocrinology, Diabetes & Metabolism; Visit Provider Internal Medicine Endocrinology, Diabetes & Metabolism
DX: E21.3 Hyperparathyroidism, unspecified (principal); R68.89 Other general symptoms and signs; E03.9 Hypothyroidism, unspecified; E55.9 Vitamin D deficiency, unspecified; Z79.52 Long term (current) use of systemic steroids
CPT/HCPCS: 36415; 80053; 82306; 82330; 82340; 82570; 82652; 83735; 83970; 84100; 84165; 84439; 84443; 84481

== ENCOUNTER → 2021-09-14 12:50 | Outpatient (CLI) | payer MEDICARE, OTHER, SELFPAY ==
[2021-09-14 15:20] LABS: Absolute Lymphocyte Count 0.62 X10^3/uL (0.83-4.51); Absolute Neutrophil Count 9.3 X10^3/uL (2.0-7.7); Basophil# 0.05 X10^3/uL; Basophil% 0.5 % (0-1); Eosinophil# 0.02 X10^3/uL; Eosinophils% 0.2 % (0-5); Hematocrit 47.2 % (40-54); Lymphocyte # 0.62 X10^3/ul (0.83-4.51); Mean Corp Hgb Conc 33.9 g/dL (32-36); Mean Corpuscular Hgb 31.4 pg (27.0-32.0); Mean Corpuscular Volume 92.7 fL (80-94); Monocyte% 2.9 % (0-10); NRBC Flagged by Analyzer 0 % (0-5); Neutrophil # 9.26 X10^3/uL (2.7-7.7); Neutrophil % 89.1 % (47-70); Platelet Count 182 K/mm3 (150-450); RBC Distribution Width SD 43.2 fl (35.1-43.9); Red Blood Count 5.09 M/mm3 (4.6-6.2); White Blood Count 10.4 K/mm3 (4.4-11.0)
[2021-09-14 15:38] LABS: BUN 18 mg/dL (7-18); Creatinine, Serum 0.93 mg/dL (0.70-1.30); Glucose 250 mg/dL (74-106)
[2021-09-14 15:39] LABS: ALB/GLOB Ratio 1.2 RATIO (0.9-2.4); AST(SGOT) 23 U/L (15-37); Alanine Aminotransfer ALT/SGPT 41 U/L (16-61); Alkaline Phosphatase 123 U/L (45-117); Anion Gap 4 (5-15); BUN/Creat Ratio 19.3 RATIO (10-20); Calcium,Total 10.6 mg/dL (8.5-10.1); Chloride 104 mmol/L (98-107); EST Glomerular Filtration Rate 85 mL/min (>60); Est Glom Filt Rate - Afr Amer 103 mL/min (>60); Globulin 3.3 g/dL (2.2-4.2); Potassium 4.1 mmol/L (3.5-5.1); Protein, Total 7.3 g/dL (6.4-8.2); Sodium Level 137 mmol/L (136-145)
== END ==
PROVIDERS: PCP Nurse Practitioner Family; Referring Provider Internal Medicine Rheumatology; Visit Provider Internal Medicine Rheumatology
DX: M06.4 Inflammatory polyarthropathy (principal); H35.30 Unspecified macular degeneration; I25.10 Atherosclerotic heart disease of native coronary artery without angina pectoris; I10 Essential (primary) hypertension; E03.9 Hypothyroidism, unspecified; E78.5 Hyperlipidemia, unspecified; E83.52 Hypercalcemia; Z79.899 Other long term (current) drug therapy
CPT/HCPCS: 36415; 80053; 85025

== ENCOUNTER 2021-11-22 13:27 | Outpatient (CLI) | payer MEDICARE, OTHER, SELFPAY ==
[2021-11-22 15:28] LABS: Absolute Lymphocyte Count 0.78 X10^3/uL (0.83-4.51); Absolute Neutrophil Count 6.4 X10^3/uL (2.0-7.7); Basophil# 0.05 X10^3/uL; Basophil% 0.6 % (0-1); Eosinophil# 0.01 X10^3/uL; Eosinophils% 0.1 % (0-5); Hematocrit 43.3 % (40-54); Hemoglobin 14.7 g/dL (13.0-16.5); Lymphocyte # 0.78 X10^3/ul (0.83-4.51); Mean Corp Hgb Conc 33.9 g/dL (32-36); Mean Corpuscular Hgb 32.4 pg (27.0-32.0); Mean Corpuscular Volume 95.4 fL (80-94); Mean Platelet Vol. 9.7 fl (6.2-12.0); Monocyte# 0.35 X10^3/uL; Monocyte% 4.5 % (0-10); NRBC Flagged by Analyzer 0 % (0-5); Neutrophil # 6.41 X10^3/uL (2.7-7.7); Neutrophil % 82.4 % (47-70); Platelet Count 213 K/mm3 (150-450); RBC Distribution Width CV 13.3 % (11.6-14.6); RBC Distribution Width SD 45.7 fl (35.1-43.9); Red Blood Count 4.54 M/mm3 (4.6-6.2); White Blood Count 7.8 K/mm3 (4.4-11.0)
[2021-11-22 16:00] LABS: ALB/GLOB Ratio 1.4 RATIO (0.9-2.4); AST(SGOT) 21 U/L (15-37); Alanine Aminotransfer ALT/SGPT 60 U/L (16-61); Albumin, Serum 4.4 g/dL (3.2-5.0); Alkaline Phosphatase 116 U/L (45-117); Anion Gap 4 (5-15); BUN 27 mg/dL (7-18); BUN/Creat Ratio 21.8 RATIO (10-20); Calcium,Total 10.8 mg/dL (8.5-10.1); Chloride 103 mmol/L (98-107); Creatinine, Serum 1.24 mg/dL (0.70-1.30); EST Glomerular Filtration Rate 61 mL/min (>60); Est Glom Filt Rate - Afr Amer 74 mL/min (>60); Globulin 3.2 g/dL (2.2-4.2); Glucose 204 mg/dL (74-106); Phosphorus 2.2 mg/dL (2.5-4.9); Potassium 3.7 mmol/L (3.5-5.1); Protein, Total 7.6 g/dL (6.4-8.2); Sodium Level 136 mmol/L (136-145)
[2021-11-22 16:10] LABS: Vitamin D,25 Hydroxy 33.7 ng/mL
[2021-11-23 08:20] LABS: PTHIN 78.4 pg/mL (18.4-80.1)
== END 2021-11-22 23:59 | disposition home or self-care (01) ==
LOC: MTLAB 13:29
PROVIDERS: PCP Nurse Practitioner Family; Referring Provider Internal Medicine Rheumatology; Visit Provider Internal Medicine Rheumatology
DX: E21.3 Hyperparathyroidism, unspecified (principal); M06.4 Inflammatory polyarthropathy; H35.30 Unspecified macular degeneration; I25.10 Atherosclerotic heart disease of native coronary artery without angina pectoris; I10 Essential (primary) hypertension; E03.9 Hypothyroidism, unspecified; E78.5 Hyperlipidemia, unspecified; E83.52 Hypercalcemia; Z79.899 Other long term (current) drug therapy
CPT/HCPCS: 36415; 80053; 82306; 82330; 83970; 84100; 85025

== ENCOUNTER 2021-11-25 09:08 | Outpatient (CLI) | payer MEDICARE, OTHER, SELFPAY ==
[2021-11-25 10:50] LABS: (24 HR) Urine Calcium 100.8 mg/24 HR (42.0-353.0); 24HR UR TOTAL VOLUME 1550 ml; Calcium Urine pH Range 1; Urine Calcium (Random) 6.5 (Not Estab.)
[2021-11-25 10:55] LABS: 24HR. Urine Creatinine 1.57 g/24 HR (0.90-2.10)
== END 2021-11-25 23:59 | disposition home or self-care (01) ==
PROVIDERS: PCP Nurse Practitioner Family; Referring Provider Internal Medicine Endocrinology, Diabetes & Metabolism; Visit Provider Internal Medicine Endocrinology, Diabetes & Metabolism
DX: E21.3 Hyperparathyroidism, unspecified (principal); R68.89 Other general symptoms and signs; I10 Essential (primary) hypertension; E03.9 Hypothyroidism, unspecified; Z79.52 Long term (current) use of systemic steroids
CPT/HCPCS: 81050; 82340; 82570

== ENCOUNTER 2022-01-06 08:30 | Outpatient (CLI) | payer MEDICARE, OTHER, SELFPAY ==
[2022-01-06 10:05] LABS: Calcium, Urine (Random) 5.4 mg/dL (Not Estab.)
[2022-01-06 10:12] LABS: PTHIN 74.3 pg/mL (18.4-80.1)
[2022-01-06 10:15] LABS: Vitamin D,25 Hydroxy 30.4 ng/mL
[2022-01-06 10:20] LABS: ALB/GLOB Ratio 1.4 RATIO (0.9-2.4); AST(SGOT) 30 U/L (15-37); Alanine Aminotransfer ALT/SGPT 44 U/L (16-61); Alkaline Phosphatase 81 U/L (45-117); Anion Gap 5 (5-15); BUN 14 mg/dL (7-18); BUN/Creat Ratio 14.8 RATIO (10-20); Calcium,Total 10.1 mg/dL (8.5-10.1); Chloride 107 mmol/L (98-107); Creatinine, Serum 0.95 mg/dL (0.70-1.30); EST Glomerular Filtration Rate 84 mL/min (>60); Est Glom Filt Rate - Afr Amer 101 mL/min (>60); Globulin 2.9 g/dL (2.2-4.2); Glucose 114 mg/dL (74-106); Phosphorus 2.4 mg/dL (2.5-4.9); Potassium 3.5 mmol/L (3.5-5.1); Protein, Total 6.9 g/dL (6.4-8.2); Sodium Level 141 mmol/L (136-145); T4 Free Direct 1.12 ng/dL (0.76-1.46); Thyroid Stim Hormone (TSH) 5.92 uIU/mL (0.358-3.74)
[2022-01-09 16:59] LABS: Vitamin D 1,25-Dihydroxy 51.5 pg/mL (19.9-79.3)
== END 2022-01-06 23:59 | disposition home or self-care (01) ==
LOC: MTLAB 08:31
PROVIDERS: PCP Nurse Practitioner Family; Referring Provider Internal Medicine Endocrinology, Diabetes & Metabolism; Visit Provider Internal Medicine Endocrinology, Diabetes & Metabolism
DX: E21.3 Hyperparathyroidism, unspecified (principal); E55.9 Vitamin D deficiency, unspecified; E03.9 Hypothyroidism, unspecified; R73.9 Hyperglycemia, unspecified; Z79.52 Long term (current) use of systemic steroids
CPT/HCPCS: 36415; 80053; 82306; 82330; 82340; 82570; 82652; 83970; 84100; 84439; 84443

== ENCOUNTER → 2022-02-16 | Outpatient (CLI) | payer MEDICARE, OTHER, SELFPAY ==
[2022-02-16 10:36] LABS: Absolute Lymphocyte Count 1.01 X10^3/uL (0.83-4.51); Absolute Neutrophil Count 2.9 X10^3/uL (2.0-7.7); Basophil# 0.04 X10^3/uL; Basophil% 0.9 % (0-1); Eosinophil# 0.12 X10^3/uL; Eosinophils% 2.6 % (0-5); Hematocrit 44.3 % (40-54); Hemoglobin 14.9 g/dL (13.0-16.5); Lymphocyte # 1.01 X10^3/ul (0.83-4.51); Lymphocyte % 22.1 % (19-41); Mean Corp Hgb Conc 33.6 g/dL (32-36); Mean Corpuscular Hgb 32.3 pg (27.0-32.0); Mean Corpuscular Volume 96.1 fL (80-94); Mean Platelet Vol. 9.8 fl (6.2-12.0); Monocyte# 0.45 X10^3/uL; Monocyte% 9.9 % (0-10); NRBC Flagged by Analyzer 0 % (0-5); Neutrophil % 63.6 % (47-70); Platelet Count 157 K/mm3 (150-450); RBC Distribution Width SD 45.3 fl (35.1-43.9); Red Blood Count 4.61 M/mm3 (4.6-6.2); White Blood Count 4.6 K/mm3 (4.4-11.0)
[2022-02-16 10:53] LABS: Hemoglobin A1c 5.9 % (3.8-5.6)
[2022-02-16 11:08] LABS: PTHIN 101.6 pg/mL (18.4-80.1)
[2022-02-16 11:09] LABS: ALB/GLOB Ratio 1.3 RATIO (0.9-2.4); AST(SGOT) 35 U/L (15-37); Alanine Aminotransfer ALT/SGPT 53 U/L (16-61); Albumin, Serum 4.1 g/dL (3.2-5.0); Alkaline Phosphatase 84 U/L (45-117); Anion Gap 7 (5-15); BUN 16 mg/dL (7-18); BUN/Creat Ratio 19.1 RATIO (10-20); Calcium,Total 10.1 mg/dL (8.5-10.1); Chloride 105 mmol/L (98-107); Creatinine, Serum 0.84 mg/dL (0.70-1.30); EST Glomerular Filtration Rate 96 mL/min (>60); Est Glom Filt Rate - Afr Amer 116 mL/min (>60); Globulin 3.1 g/dL (2.2-4.2); Glucose 105 mg/dL (74-106); Phosphorus 1.9 mg/dL (2.5-4.9); Potassium 3.8 mmol/L (3.5-5.1); Protein, Total 7.2 g/dL (6.4-8.2); Sodium Level 140 mmol/L (136-145); T4 Free Direct 1.11 ng/dL (0.76-1.46); Thyroid Stim Hormone (TSH) 3.56 uIU/mL (0.358-3.74)
[2022-02-16 11:12] LABS: Vitamin D,25 Hydroxy 24.8 ng/mL
[2022-02-16 13:11] LABS: Calcium, Urine (Random) < 5.0 mg/dL (Not Estab.)
[2022-02-18 16:12] LABS: Vitamin D 1,25-Dihydroxy 34.8 pg/mL (19.9-79.3)
== END | disposition home or self-care (01) ==
LOC: MTLAB 08:47
PROVIDERS: PCP Nurse Practitioner Family; Referring Provider Internal Medicine Rheumatology; Visit Provider Internal Medicine Rheumatology
DX: E21.3 Hyperparathyroidism, unspecified (principal); M06.4 Inflammatory polyarthropathy; R68.89 Other general symptoms and signs; H35.30 Unspecified macular degeneration; I25.10 Atherosclerotic heart disease of native coronary artery without angina pectoris; I10 Essential (primary) hypertension; E03.9 Hypothyroidism, unspecified; E78.5 Hyperlipidemia, unspecified; E83.52 Hypercalcemia; E55.9 Vitamin D deficiency, unspecified; Z79.899 Other long term (current) drug therapy
CPT/HCPCS: 36415; 80053; 82306; 82330; 82340; 82570; 82652; 83036; 83970; 84100; 84439; 84443; 85025

== ENCOUNTER → 2022-04-28 | Outpatient (CLI) | payer MEDICARE, OTHER, SELFPAY ==
[2022-04-28 10:48] LABS: PTHIN 86.6 pg/mL (18.4-80.1)
[2022-04-28 11:04] LABS: ALB/GLOB Ratio 1.3 RATIO (0.9-2.4); AST(SGOT) 36 U/L (15-37); Alanine Aminotransfer ALT/SGPT 56 U/L (16-61); Albumin, Serum 4.2 g/dL (3.2-5.0); Alkaline Phosphatase 107 U/L (45-117); Anion Gap 5 (5-15); BUN 15 mg/dL (7-18); BUN/Creat Ratio 17.5 RATIO (10-20); Calcium, Urine (Random) < 5.0 mg/dL (Not Estab.); Calcium,Total 10.2 mg/dL (8.5-10.1); Chloride 105 mmol/L (98-107); Creatinine, Serum 0.86 mg/dL (0.70-1.30); EST Glomerular Filtration Rate 94 mL/min (>60); Est Glom Filt Rate - Afr Amer 114 mL/min (>60); Globulin 3.2 g/dL (2.2-4.2); Glucose 107 mg/dL (74-106); Magnesium 2.5 mg/dL (1.6-2.6); Potassium 3.4 mmol/L (3.5-5.1); Protein, Total 7.4 g/dL (6.4-8.2); Sodium Level 138 mmol/L (136-145); T4 Free Direct 1.21 ng/dL (0.76-1.46); Thyroid Stim Hormone (TSH) 3.19 uIU/mL (0.358-3.74); Vitamin D,25 Hydroxy 48.2 ng/mL
[2022-05-01 08:47] LABS: Vitamin D 1,25-Dihydroxy 48.4 pg/mL (24.8-81.5)
== END | disposition home or self-care (01) ==
LOC: MTLAB 08:54
PROVIDERS: PCP Nurse Practitioner Family; Referring Provider Internal Medicine Endocrinology, Diabetes & Metabolism; Visit Provider Internal Medicine Endocrinology, Diabetes & Metabolism
DX: E21.3 Hyperparathyroidism, unspecified (principal); E11.9 Type 2 diabetes mellitus without complications; I10 Essential (primary) hypertension; E03.9 Hypothyroidism, unspecified; Z79.52 Long term (current) use of systemic steroids
CPT/HCPCS: 36415; 80053; 82306; 82330; 82340; 82570; 82652; 83036; 83735; 83970; 84100; 84439; 84443

== ENCOUNTER → 2022-05-20 | Outpatient (CLI) | payer MEDICARE, OTHER, SELFPAY ==
[2022-05-20 15:01] LABS: Absolute Lymphocyte Count 1.24 X10^3/uL (0.83-4.51); Absolute Neutrophil Count 3.1 X10^3/uL (2.0-7.7); Basophil# 0.04 X10^3/uL; Basophil% 0.8 % (0-1); Eosinophil# 0.12 X10^3/uL; Eosinophils% 2.3 % (0-5); Hematocrit 41.9 % (40-54); Lymphocyte # 1.24 X10^3/ul (0.83-4.51); Lymphocyte % 23.8 % (19-41); Mean Corp Hgb Conc 33.4 g/dL (32-36); Mean Corpuscular Hgb 32.3 pg (27.0-32.0); Mean Corpuscular Volume 96.5 fL (80-94); Mean Platelet Vol. 10.3 fl (6.2-12.0); Monocyte# 0.71 X10^3/uL; Monocyte% 13.6 % (0-10); NRBC Flagged by Analyzer 0 % (0-5); Neutrophil # 3.08 X10^3/uL (2.7-7.7); Neutrophil % 59.1 % (47-70); Platelet Count 158 K/mm3 (150-450); RBC Distribution Width CV 13.2 % (11.6-14.6); RBC Distribution Width SD 46.9 fl (35.1-43.9); Red Blood Count 4.34 M/mm3 (4.6-6.2); White Blood Count 5.2 K/mm3 (4.4-11.0)
[2022-05-20 15:20] LABS: ALB/GLOB Ratio 1.3 RATIO (0.9-2.4); AST(SGOT) 68 U/L (15-37); Alanine Aminotransfer ALT/SGPT 111 U/L (16-61); Albumin, Serum 3.8 g/dL (3.2-5.0); Alkaline Phosphatase 106 U/L (45-117); Anion Gap 4 (5-15); BUN 17 mg/dL (7-18); BUN/Creat Ratio 18.7 RATIO (10-20); Calcium,Total 10.1 mg/dL (8.5-10.1); Chloride 109 mmol/L (98-107); Creatinine, Serum 0.91 mg/dL (0.70-1.30); EST Glomerular Filtration Rate 88 mL/min (>60); Est Glom Filt Rate - Afr Amer 106 mL/min (>60); Glucose 86 mg/dL (74-106); Potassium 3.8 mmol/L (3.5-5.1); Protein, Total 6.8 g/dL (6.4-8.2); Sodium Level 141 mmol/L (136-145)
== END | disposition home or self-care (01) ==
LOC: MTLAB 11:09
PROVIDERS: PCP Nurse Practitioner Family; Referring Provider Internal Medicine Rheumatology; Visit Provider Internal Medicine Rheumatology
DX: M06.4 Inflammatory polyarthropathy (principal); H35.30 Unspecified macular degeneration; I25.10 Atherosclerotic heart disease of native coronary artery without angina pectoris; I10 Essential (primary) hypertension; E03.9 Hypothyroidism, unspecified; E78.5 Hyperlipidemia, unspecified; E83.52 Hypercalcemia; H04.123 Dry eye syndrome of bilateral lacrimal glands; Z79.899 Other long term (current) drug therapy
CPT/HCPCS: 36415; 80053; 85025

== ENCOUNTER → 2022-06-17 | Outpatient (CLI) | payer MEDICARE, OTHER, SELFPAY ==
[2022-06-17 12:34] LABS: ALB/GLOB Ratio 1.2 RATIO (0.9-2.4); AST(SGOT) 28 U/L (15-37); Alanine Aminotransfer ALT/SGPT 48 U/L (16-61); Albumin, Serum 4.2 g/dL (3.2-5.0); Alkaline Phosphatase 143 U/L (45-117); Anion Gap 6 (5-15); BUN 22 mg/dL (7-18); BUN/Creat Ratio 21.2 RATIO (10-20); Calcium,Total 10.8 mg/dL (8.5-10.1); Chloride 106 mmol/L (98-107); Creatinine, Serum 1.04 mg/dL (0.70-1.30); EST Glomerular Filtration Rate 75 mL/min (>60); Est Glom Filt Rate - Afr Amer 91 mL/min (>60); Globulin 3.6 g/dL (2.2-4.2); Glucose 138 mg/dL (74-106); Potassium 3.9 mmol/L (3.5-5.1); Protein, Total 7.8 g/dL (6.4-8.2); Sodium Level 140 mmol/L (136-145)
== END | disposition home or self-care (01) ==
LOC: MTLAB 10:22
PROVIDERS: PCP Nurse Practitioner Family; Referring Provider Internal Medicine Rheumatology; Visit Provider Internal Medicine Rheumatology
DX: M06.4 Inflammatory polyarthropathy (principal); M47.892 Other spondylosis, cervical region; H35.30 Unspecified macular degeneration; I25.10 Atherosclerotic heart disease of native coronary artery without angina pectoris; I10 Essential (primary) hypertension; E03.9 Hypothyroidism, unspecified; E78.5 Hyperlipidemia, unspecified; E83.52 Hypercalcemia; H04.123 Dry eye syndrome of bilateral lacrimal glands; Z79.899 Other long term (current) drug therapy
CPT/HCPCS: 36415; 80053

== ENCOUNTER → 2022-08-11 | Outpatient (CLI) | payer MEDICARE, OTHER, SELFPAY ==
[2022-08-11 12:18] LABS: Absolute Lymphocyte Count 1.72 X10^3/uL (0.83-4.51); Absolute Neutrophil Count 2.2 X10^3/uL (2.0-7.7); Basophil# 0.05 X10^3/uL; Basophil% 1.1 % (0-1); Eosinophil# 0.11 X10^3/uL; Eosinophils% 2.3 % (0-5); Hematocrit 44.3 % (40-54); Hemoglobin 14.8 g/dL (13.0-16.5); Lymphocyte # 1.72 X10^3/ul (0.83-4.51); Lymphocyte % 36.7 % (19-41); Mean Corp Hgb Conc 33.4 g/dL (32-36); Mean Corpuscular Hgb 31.6 pg (27.0-32.0); Mean Corpuscular Volume 94.5 fL (80-94); Mean Platelet Vol. 10.2 fl (6.2-12.0); Monocyte# 0.61 X10^3/uL; NRBC Flagged by Analyzer 0 % (0-5); Neutrophil # 2.15 X10^3/uL (2.7-7.7); Neutrophil % 45.8 % (47-70); Platelet Count 173 K/mm3 (150-450); RBC Distribution Width CV 13.4 % (11.6-14.6); RBC Distribution Width SD 45.4 fl (35.1-43.9); Red Blood Count 4.69 M/mm3 (4.6-6.2); White Blood Count 4.7 K/mm3 (4.4-11.0)
[2022-08-11 12:58] LABS: ALB/GLOB Ratio 1.2 RATIO (0.9-2.4); AST(SGOT) 32 U/L (15-37); Alanine Aminotransfer ALT/SGPT 52 U/L (16-61); Albumin, Serum 3.8 g/dL (3.2-5.0); Alkaline Phosphatase 118 U/L (45-117); Anion Gap 5 (5-15); BUN 15 mg/dL (7-18); BUN/Creat Ratio 18.1 RATIO (10-20); Calcium,Total 10.4 mg/dL (8.5-10.1); Chloride 109 mmol/L (98-107); Creatinine, Serum 0.83 mg/dL (0.70-1.30); EST Glomerular Filtration Rate 97 mL/min (>60); Est Glom Filt Rate - Afr Amer 118 mL/min (>60); Globulin 3.3 g/dL (2.2-4.2); Glucose 104 mg/dL (74-106); Potassium 3.7 mmol/L (3.5-5.1); Protein, Total 7.1 g/dL (6.4-8.2); Sodium Level 142 mmol/L (136-145)
== END | disposition home or self-care (01) ==
LOC: MTLAB 10:47
PROVIDERS: PCP Nurse Practitioner Family; Referring Provider Internal Medicine Rheumatology; Visit Provider Internal Medicine Rheumatology
DX: M06.4 Inflammatory polyarthropathy (principal); M47.892 Other spondylosis, cervical region; Z79.899 Other long term (current) drug therapy
CPT/HCPCS: 36415; 80053; 85025

== ENCOUNTER → 2022-09-01 | Outpatient (CLI) | payer MEDICARE, OTHER, SELFPAY ==
[2022-09-01 10:39] LABS: PTHIN 81.4 pg/mL (18.4-80.1)
[2022-09-01 10:45] LABS: Vitamin D,25 Hydroxy 26.4 ng/mL
[2022-09-01 10:57] LABS: ALB/GLOB Ratio 1.6 RATIO (0.9-2.4); AST(SGOT) 28 U/L (15-37); Alanine Aminotransfer ALT/SGPT 47 U/L (16-61); Albumin, Serum 4.2 g/dL (3.2-5.0); Alkaline Phosphatase 113 U/L (45-117); Anion Gap 7 (5-15); BUN 15 mg/dL (7-18); BUN/Creat Ratio 18.5 RATIO (10-20); Calcium,Total 10.1 mg/dL (8.5-10.1); Chloride 105 mmol/L (98-107); Cholesterol 158 mg/dL (200); Creatinine, Serum 0.81 mg/dL (0.70-1.30); EST Glomerular Filtration Rate 100 mL/min (>60); Est Glom Filt Rate - Afr Amer 121 mL/min (>60); Free T3 2.6 pg/mL (2.18-3.98); Globulin 2.7 g/dL (2.2-4.2); Glucose 101 mg/dL (74-106); High Density Lipoprotein 62 mg/dL; Phosphorus 2.2 mg/dL (2.5-4.9); Potassium 3.5 mmol/L (3.5-5.1); Protein, Total 6.9 g/dL (6.4-8.2); Sodium Level 141 mmol/L (136-145); T4 Free Direct 1.21 ng/dL (0.76-1.46); Triglycerides 59 mg/dL; Very Low Density Lipoprotein 12 mg/dL (5-40)
[2022-09-01 11:02] LABS: Hemoglobin A1c 6.1 % (3.8-5.6)
[2022-09-01 11:12] LABS: Calcium, Urine (Random) 6.3 mg/dL (Not Estab.)
[2022-09-03 20:28] LABS: Vitamin D 1,25-Dihydroxy 50.9 pg/mL (24.8-81.5)
== END | disposition home or self-care (01) ==
PROVIDERS: PCP Nurse Practitioner Family; Referring Provider Internal Medicine Endocrinology, Diabetes & Metabolism; Visit Provider Internal Medicine Endocrinology, Diabetes & Metabolism
DX: E21.3 Hyperparathyroidism, unspecified (principal); E11.9 Type 2 diabetes mellitus without complications; E03.9 Hypothyroidism, unspecified; E55.9 Vitamin D deficiency, unspecified; I10 Essential (primary) hypertension
CPT/HCPCS: 36415; 80053; 80061; 82306; 82330; 82340; 82570; 82652; 83036; 83970; 84100; 84439; 84443; 84481

== ENCOUNTER → 2022-11-04 | Outpatient (CLI) | payer MEDICARE, OTHER, SELFPAY ==
[2022-11-04 09:58] LABS: Absolute Lymphocyte Count 1.11 X10^3/uL (0.83-4.51); Absolute Neutrophil Count 3.4 X10^3/uL (2.0-7.7); Basophil# 0.03 X10^3/uL; Basophil% 0.6 % (0-1); Eosinophil# 0.11 X10^3/uL; Eosinophils% 2.1 % (0-5); Hematocrit 41.2 % (40-54); Hemoglobin 13.6 g/dL (13.0-16.5); Lymphocyte # 1.11 X10^3/ul (0.83-4.51); Lymphocyte % 20.9 % (19-41); Mean Corpuscular Hgb 31.9 pg (27.0-32.0); Mean Corpuscular Volume 96.7 fL (80-94); Mean Platelet Vol. 10.7 fl (6.2-12.0); Monocyte# 0.63 X10^3/uL; Monocyte% 11.8 % (0-10); NRBC Flagged by Analyzer 0 % (0-5); Neutrophil # 3.41 X10^3/uL (2.7-7.7); Platelet Count 151 K/mm3 (150-450); RBC Distribution Width SD 45.8 fl (35.1-43.9); Red Blood Count 4.26 M/mm3 (4.6-6.2); White Blood Count 5.3 K/mm3 (4.4-11.0)
[2022-11-04 10:27] LABS: ALB/GLOB Ratio 1.2 RATIO (0.9-2.4); AST(SGOT) 26 U/L (15-37); Alanine Aminotransfer ALT/SGPT 35 U/L (16-61); Albumin, Serum 3.7 g/dL (3.2-5.0); Alkaline Phosphatase 128 U/L (45-117); Anion Gap 6 (5-15); BUN 19 mg/dL (7-18); BUN/Creat Ratio 18.3 RATIO (10-20); Calcium,Total 10.2 mg/dL (8.5-10.1); Chloride 109 mmol/L (98-107); Creatinine, Serum 1.04 mg/dL (0.70-1.30); EST Glomerular Filtration Rate 75 mL/min (>60); Est Glom Filt Rate - Afr Amer 91 mL/min (>60); Glucose 204 mg/dL (74-106); Potassium 3.4 mmol/L (3.5-5.1); Protein, Total 6.7 g/dL (6.4-8.2); Sodium Level 143 mmol/L (136-145)
== END | disposition home or self-care (01) ==
LOC: MTLAB 08:52
PROVIDERS: PCP Nurse Practitioner Family; Referring Provider Internal Medicine Rheumatology; Visit Provider Internal Medicine Rheumatology
DX: M06.4 Inflammatory polyarthropathy (principal); H35.30 Unspecified macular degeneration; I25.10 Atherosclerotic heart disease of native coronary artery without angina pectoris; Z79.899 Other long term (current) drug therapy
CPT/HCPCS: 36415; 80053; 85025

== ENCOUNTER → 2022-12-29 | Outpatient (CLI) | payer MEDICARE, OTHER, SELFPAY ==
[2022-12-29 10:05] LABS: Calcium, Urine (Random) 7.5 mg/dL (Not Estab.)
[2022-12-29 10:12] LABS: Vitamin D,25 Hydroxy 32.6 ng/mL
[2022-12-29 10:13] LABS: ALB/GLOB Ratio 1.4 RATIO (0.9-2.4); AST(SGOT) 25 U/L (15-37); Alanine Aminotransfer ALT/SGPT 44 U/L (16-61); Albumin, Serum 4.1 g/dL (3.2-5.0); Alkaline Phosphatase 128 U/L (45-117); Anion Gap 7 (5-15); BUN 17 mg/dL (7-18); BUN/Creat Ratio 19.2 RATIO (10-20); Calcium,Total 10.3 mg/dL (8.5-10.1); Chloride 105 mmol/L (98-107); Creatinine, Serum 0.89 mg/dL (0.70-1.30); EST Glomerular Filtration Rate 90 mL/min (>60); Est Glom Filt Rate - Afr Amer 109 mL/min (>60); Free T3 2.7 pg/mL (2.18-3.98); Glucose 129 mg/dL (74-106); Potassium 3.6 mmol/L (3.5-5.1); Protein, Total 7.1 g/dL (6.4-8.2); Sodium Level 139 mmol/L (136-145); T4 Free Direct 1.33 ng/dL (0.76-1.46); Thyroid Stim Hormone (TSH) 1.02 uIU/mL (0.358-3.74)
[2022-12-29 10:46] LABS: PTHIN 91.6 pg/mL (18.4-80.1)
== END | disposition home or self-care (01) ==
LOC: MTLAB 08:37
PROVIDERS: PCP Nurse Practitioner Family; Referring Provider Internal Medicine Endocrinology, Diabetes & Metabolism; Visit Provider Internal Medicine Endocrinology, Diabetes & Metabolism
DX: E21.3 Hyperparathyroidism, unspecified (principal); E11.9 Type 2 diabetes mellitus without complications; E03.9 Hypothyroidism, unspecified; I10 Essential (primary) hypertension; E55.9 Vitamin D deficiency, unspecified
CPT/HCPCS: 36415; 80053; 82306; 82330; 82340; 82570; 83036; 83970; 84439; 84443; 84481

== ENCOUNTER → 2023-01-25 | Outpatient (CLI) | payer MEDICARE, OTHER, SELFPAY ==
[2023-01-25 12:05] LABS: Absolute Lymphocyte Count 1.27 X10^3/uL (0.83-4.51); Absolute Neutrophil Count 4.2 X10^3/uL (2.0-7.7); Basophil# 0.05 X10^3/uL; Basophil% 0.8 % (0-1); Eosinophil# 0.18 X10^3/uL; Eosinophils% 2.9 % (0-5); Hematocrit 44.1 % (40-54); Hemoglobin 15.3 g/dL (13.0-16.5); Lymphocyte # 1.27 X10^3/ul (0.83-4.51); Lymphocyte % 20.3 % (19-41); Mean Corp Hgb Conc 34.7 g/dL (32-36); Mean Corpuscular Hgb 33.3 pg (27.0-32.0); Mean Corpuscular Volume 96.1 fL (80-94); Mean Platelet Vol. 10.3 fl (6.2-12.0); Monocyte# 0.54 X10^3/uL; Monocyte% 8.6 % (0-10); NRBC Flagged by Analyzer 0 % (0-5); Neutrophil # 4.17 X10^3/uL (2.7-7.7); Neutrophil % 66.6 % (47-70); Platelet Count 168 K/mm3 (150-450); RBC Distribution Width CV 13.2 % (11.6-14.6); RBC Distribution Width SD 46.1 fl (35.1-43.9); Red Blood Count 4.59 M/mm3 (4.6-6.2); White Blood Count 6.3 K/mm3 (4.4-11.0)
[2023-01-25 13:08] LABS: ALB/GLOB Ratio 1.6 RATIO (0.9-2.4); AST(SGOT) 30 U/L (15-37); Alanine Aminotransfer ALT/SGPT 48 U/L (16-61); Albumin, Serum 4.1 g/dL (3.2-5.0); Alkaline Phosphatase 126 U/L (45-117); BUN 18 mg/dL (7-18); BUN/Creat Ratio 20.9 RATIO (10-20); Calcium,Total 10.3 mg/dL (8.5-10.1); Creatinine, Serum 0.86 mg/dL (0.70-1.30); EST Glomerular Filtration Rate 93 mL/min (>60); Est Glom Filt Rate - Afr Amer 113 mL/min (>60); Globulin 2.6 g/dL (2.2-4.2); Glucose 145 mg/dL (74-106); Protein, Total 6.7 g/dL (6.4-8.2)
[2023-01-25 13:09] LABS: Anion Gap 7 (5-15); Chloride 107 mmol/L (98-107); Potassium 3.9 mmol/L (3.5-5.1); Sodium Level 142 mmol/L (136-145)
== END | disposition home or self-care (01) ==
LOC: MTLAB 10:08
PROVIDERS: PCP Family Medicine; Referring Provider Internal Medicine Rheumatology; Visit Provider Internal Medicine Rheumatology
DX: M06.4 Inflammatory polyarthropathy (principal); Z79.899 Other long term (current) drug therapy
CPT/HCPCS: 36415; 80053; 85025

== ENCOUNTER → 2023-04-06 | Outpatient (CLI) | payer MEDICARE, OTHER, SELFPAY ==
[2023-04-06 12:33] LABS: Absolute Lymphocyte Count 1.75 X10^3/uL (0.83-4.51); Absolute Neutrophil Count 3.4 X10^3/uL (2.0-7.7); Basophil# 0.07 X10^3/uL; Basophil% 1.1 % (0-1); Eosinophil# 0.12 X10^3/uL; Eosinophils% 1.9 % (0-5); Hemoglobin 14.5 g/dL (13.0-16.5); Lymphocyte # 1.75 X10^3/ul (0.83-4.51); Lymphocyte % 27.4 % (19-41); Mean Corp Hgb Conc 33.7 g/dL (32-36); Mean Corpuscular Hgb 32.7 pg (27.0-32.0); Mean Corpuscular Volume 97.1 fL (80-94); Mean Platelet Vol. 10.1 fl (6.2-12.0); Monocyte# 0.92 X10^3/uL; Monocyte% 14.4 % (0-10); NRBC Flagged by Analyzer 0 % (0-5); Neutrophil # 3.44 X10^3/uL (2.7-7.7); Neutrophil % 53.9 % (47-70); Platelet Count 183 K/mm3 (150-450); RBC Distribution Width CV 13.1 % (11.6-14.6); RBC Distribution Width SD 46.5 fl (35.1-43.9); Red Blood Count 4.43 M/mm3 (4.6-6.2); White Blood Count 6.4 K/mm3 (4.4-11.0)
[2023-04-06 13:00] LABS: ALB/GLOB Ratio 1.3 RATIO (0.9-2.4); AST(SGOT) 22 U/L (15-37); Alanine Aminotransfer ALT/SGPT 47 U/L (16-61); Albumin, Serum 3.8 g/dL (3.2-5.0); Alkaline Phosphatase 126 U/L (45-117); Anion Gap 4 (5-15); BUN 20 mg/dL (7-18); Calcium,Total 10.2 mg/dL (8.5-10.1); Chloride 109 mmol/L (98-107); EST Glomerular Filtration Rate 101 mL/min (>60); Est Glom Filt Rate - Afr Amer 123 mL/min (>60); Glucose 114 mg/dL (74-106); Potassium 3.7 mmol/L (3.5-5.1); Protein, Total 6.8 g/dL (6.4-8.2); Sodium Level 142 mmol/L (136-145)
== END | disposition home or self-care (01) ==
LOC: MTLAB 10:41
PROVIDERS: PCP Family Medicine; Visit Provider Internal Medicine Rheumatology
DX: M06.4 Inflammatory polyarthropathy (principal); Z79.899 Other long term (current) drug therapy
CPT/HCPCS: 36415; 80053; 85025

== ENCOUNTER → 2023-06-30 | Outpatient (CLI) | payer MEDICARE, OTHER, SELFPAY ==
[2023-06-30 09:53] LABS: Absolute Lymphocyte Count 1.43 X10^3/uL (0.83-4.51); Absolute Neutrophil Count 3.2 X10^3/uL (2.0-7.7); Basophil# 0.04 X10^3/uL; Basophil% 0.7 % (0-1); Eosinophil# 0.12 X10^3/uL; Eosinophils% 2.2 % (0-5); Hematocrit 42.9 % (40-54); Hemoglobin 14.3 g/dL (13.0-16.5); Lymphocyte # 1.43 X10^3/ul (0.83-4.51); Lymphocyte % 26.3 % (19-41); Mean Corp Hgb Conc 33.3 g/dL (32-36); Mean Corpuscular Hgb 31.8 pg (27.0-32.0); Mean Corpuscular Volume 95.5 fL (80-94); Mean Platelet Vol. 10.2 fl (6.2-12.0); Monocyte# 0.59 X10^3/uL; Monocyte% 10.9 % (0-10); NRBC Flagged by Analyzer 0 % (0-5); Platelet Count 147 K/mm3 (150-450); RBC Distribution Width CV 13.2 % (11.6-14.6); RBC Distribution Width SD 46.2 fl (35.1-43.9); Red Blood Count 4.49 M/mm3 (4.6-6.2); White Blood Count 5.4 K/mm3 (4.4-11.0)
[2023-06-30 10:21] LABS: PTHIN 73.4 pg/mL (18.4-80.1)
[2023-06-30 10:25] LABS: Vitamin D,25 Hydroxy 36.2 ng/mL
[2023-06-30 10:29] LABS: ALB/GLOB Ratio 1.3 RATIO (0.9-2.4); AST(SGOT) 47 U/L (15-37); Alanine Aminotransfer ALT/SGPT 77 U/L (16-61); Albumin, Serum 4.1 g/dL (3.2-5.0); Alkaline Phosphatase 108 U/L (45-117); Anion Gap 4 (5-15); BUN 15 mg/dL (7-18); BUN/Creat Ratio 17.5 RATIO (10-20); Calcium,Total 10.1 mg/dL (8.5-10.1); Chloride 108 mmol/L (98-107); Creatinine, Serum 0.86 mg/dL (0.70-1.30); EST Glomerular Filtration Rate 94 mL/min (>60); Est Glom Filt Rate - Afr Amer 113 mL/min (>60); Globulin 3.1 g/dL (2.2-4.2); Glucose 122 mg/dL (74-106); Magnesium 2.7 mg/dL (1.6-2.6); Phosphorus 2.2 mg/dL (2.5-4.9); Potassium 3.6 mmol/L (3.5-5.1); Protein, Total 7.2 g/dL (6.4-8.2); Sodium Level 141 mmol/L (136-145); Thyroid Stim Hormone (TSH) 2.81 uIU/mL (0.358-3.74)
[2023-06-30 10:35] LABS: Microalbumin,Random Urine < 5.0 mg/L (NO RANGE EST.)
[2023-06-30 10:51] LABS: Ionized Calcium 5.36 mg/dL (4.36-5.20)
[2023-06-30 13:29] LABS: Calcium, Urine (Random) < 2.0 mg/dL (Not Estab.)
[2023-06-30 17:41] LABS: Ionized Calcium Order ORDER TUBE
== END | disposition home or self-care (01) ==
LOC: MTLAB 08:39 → PAVLAB 08:58
PROVIDERS: PCP Family Medicine; Referring Provider Internal Medicine Endocrinology, Diabetes & Metabolism; Visit Provider Internal Medicine Endocrinology, Diabetes & Metabolism
DX: E21.3 Hyperparathyroidism, unspecified (principal); E11.9 Type 2 diabetes mellitus without complications; E03.9 Hypothyroidism, unspecified; I10 Essential (primary) hypertension; E55.9 Vitamin D deficiency, unspecified
CPT/HCPCS: 36415; 80053; 82043; 82306; 82330; 82340; 82570; 83036; 83735; 83970; 84100; 84443; 85025

== ENCOUNTER → 2023-08-02 | Outpatient (CLI) | payer MEDICARE, OTHER, SELFPAY ==
[2023-08-02 10:57] LABS: ALB/GLOB Ratio 1.2 RATIO (0.9-2.4); AST(SGOT) 54 U/L (15-37); Alanine Aminotransfer ALT/SGPT 57 U/L (16-61); Albumin, Serum 3.6 g/dL (3.2-5.0); Alkaline Phosphatase 118 U/L (45-117); Anion Gap 2 (5-15); BUN 16 mg/dL (7-18); BUN/Creat Ratio 17.3 RATIO (10-20); Calcium,Total 10.1 mg/dL (8.5-10.1); Chloride 110 mmol/L (98-107); Creatinine, Serum 0.92 mg/dL (0.70-1.30); EST Glomerular Filtration Rate 86 mL/min (>60); Est Glom Filt Rate - Afr Amer 104 mL/min (>60); Glucose 227 mg/dL (74-106); Protein, Total 6.6 g/dL (6.4-8.2); Sodium Level 140 mmol/L (136-145)
== END | disposition home or self-care (01) ==
PROVIDERS: PCP Family Medicine; Referring Provider Internal Medicine Rheumatology; Visit Provider Internal Medicine Rheumatology
DX: M06.4 Inflammatory polyarthropathy (principal); Z79.899 Other long term (current) drug therapy
CPT/HCPCS: 36415; 80053

== ENCOUNTER → 2023-09-26 | Outpatient (CLI) | payer MEDICARE, OTHER, SELFPAY ==
--- OUTSIDE RECORDS SUMMARY | 2023-09-26 10:31 | XMS RPT_ITS | CCD ---
Author Name Unknown Address [id number] [place] [address] Organization [facility] Care Team Providers Care Jd Edwards Developer Name Role Phone Isrrael Elias II Unavailable Unavailable Update Needed Unavailable Unavailable Update Needed Unavailable Unavailable Unavailable Unavailable Breezy [place] Unavailable Unavailable Unavailable REESE CORRAL, DR JOSE DE JESUS Zheng Primary Care Physician Un available Thomae, Dr. Kain Henderson Admitting Unavailable Thomae, Dr. Kain Henderson Attending Unavailable Hellinger, Ms. Breezy Valadez Primary Care Unavail able Nan, Azul Breezy Rory Referring Unavail able Elias II, Dr. Isrrael Zuñiga Referring Unavai lable Nan, Ms. Breezy Valadez Primary Care Unavail able Elias II, Dr. Isrrael Zuñiga Attending Unavai ainsley Montes, Dr. Marco A Hopson Attending Unavailabl e Nan, Ms. Breezy Valadez Primary Care Unavail able Isrrael Elias Attending Unavailable Isrrael Elias Referring Unavailable Hellinger, Ms. Tijerina Rory Primary Care Unavail able Isrrael Elias Attending Unavailable Isrrael Elias Referring Unavailable Hellingpaul, Ms. Tijerina Rory Primary Care Unavail Jose De Jesus Michelle MD Primary Care Provider MARCO A MONTES Referring Unavailable JOSE DE JESUS ORTIZ Primary Care Unavailable MOOKIE MONTOYA Referring Unavailable JOSE DE JESUS ORTIZ Primary Care Unavailable Allergies Allergy Classification Reported Allergen(s) Allergy Type Date of Onset Reaction(s) Facility Sulfonamides (antibiotic) (2 sources) Sulfonamides (Antibiotic); Translations: [Sulfa Drugs] Drug Allergy NQ-Nwtgyll-Fke land Work Phone: (12 sources) Sulfonamides (Antibiotic); Translations: [Sulfa Drugs] Allergy to drug (finding) IV-Ylnwtyg-Etj well 2100 Work Phone: (2 sources) Mafenide; Translations: [mafenide topical] Drug Allergy burn [facility] (1 source) ALLERGIES NOT ON FILE; Translations: [ALLERGIES NOT ON FILE] Propensity to adverse reactions (disorder) [facility] 2 Repository Medications Current Medications Medication Drug Class(es) Dates Sig (Normalized) Sig (Original) amLODIPine 10 mg oral tablet (16 sources) Dihydropyridine Calcium Channel Franki Start: 09-09-2021 amLODIPine 10 mg oral tablet Dose : 10 mg = 1 tab(s), Oral, qDay, # 30 tab(s), 0 Refill(s) Start Date: 09/09/21 Status: Ordered Completed/Discontinued Medications Medication Drug Class(es) Dates Sig (Normalized) Sig (Original) Aspirin (15 sources) Platelet Aggregation Inhibitor, Nonsteroidal Anti-inflammatory Drug Aspirin TABS Rohit tity: 0 Refills: 0 Ordered: 03-Apr-2020 DO Active Problems Active Problems Problem Classification Problem Date Documented Date Episodic/Chronic Allergic reactions (1 source) Allergy status to sulfonamides status; Translations: [Allergy status to sulfonamides] Onset: 3 Episodic Coronary atherosclerosis and other heart disease (14 sources) History of myocardial infarction; Translations: [Old myocardial infarction] Chronic Coronary atherosclerosis and other heart disease (2 sources) History of myocardial infarction; Translations: [Presence of aortocoronary bypass graft] Onset: 3 Episodic Diabetes mellitus without complication (2 sources) Diabetes mellitus 12-03-2021 Chronic Diabetes mellitus without complication (4 sources) Hyperglycemia; Translations: [Prediabetes] 12-02-2021 Episodic Disorders of lipid metabolism (1 source) Pure hypercholesterolemia, unspecified; Translations: [Pure hypercholesterolemia, unspecified] Onset: 3 Chronic Essential hypertension (3 sources) Hypertensive disorder; Translations: [Essential (primary) hypertension] Onset: 3 11-12-2020 Chronic Genitourinary symptoms and ill-defined conditions (15 sources) Nocturia; Translations: [Nocturia] Episodic Hyperplasia of prostate (16 sources) Urinary urgency due to benign prostatic hypertrophy; Translations: [Hypertrophy (benign) of prostate with urinary obstruction and other lower urinary tract symptoms (LUTS)] Onset: 3 Chronic Nutritional deficiencies (2 sources) Vitamin D deficiency 11-12-2020 Chronic Other aftercare (1 source) prison (current) use of aspirin; Translations: [prison (current) use of aspirin] Onset: 3 Episodic Other aftercare (1 source) prison (current) use of systemic steroids; Translations: [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] Onset: 3 Episodic Other aftercare (3 sources) Other exterminator (current) drug therapy; Translations: [Other skilled nursing (current) drug therapy] Onset: 2 Episodic Other aftercare (2 sources) Long-term current use of drug therapy; Translations: [Other skilled nursing (current) drug therapy] 07-20-2023 Episodic Other endocrine disorders (12 sources) Primary hyperparathyroidism; Translations: [Primary hyperparathyroidism] Chronic Other endocrine disorders (2 sources) Hyperparathyroidism 11-12-2020 Chronic Other endocrine disorders (2 sources) Hyperparathyroidism, unspecified; Translations: [Hyperparathyroidism, unspecified ([facility])] Onset: 3 Chronic Other male genital disorders (1 source) Impotence; Translations: [Erectile dysfunction] Chronic Other male genital disorders (14 sources) Male erectile dysfunction, unspecified; Translations: [Erectile dysfunction] Chronic Other screening for suspected conditions (not mental disorders or infectious disease) (20 sources) Raised prostate specific antigen; Translations: [Elevated prostate specific antigen [PSA]] Onset: 2 Episodic Residual codes; unclassified (2 sources) Generally unwell 02-04-2021 Episodic Residual codes; unclassified (1 source) Family history of colonic polyps; Translations: [Family history of colonic polyps] Onset: 3 Episodic Substance-related disorders (1 source) Nicotine dependence, unspecified, uncomplicated; Translations: [Nicotine dependence, unspecified, uncomplicated] Onset: 3 Chronic Thyroid disorders (2 sources) Hypothyroidism 11-12-2020 Chronic Thyroid disorders (1 source) Disorder of thyroid, unspecified; Translations: [Disorder of thyroid, unspecified] Onset: 02-08-202 3 Episodic Unclassified (2 sources) Long-term current use of steroid 11-12-2020 Past or Other Problems Problem Classification Problem Date Documented Date Episodic/Chronic Biliary tract disease (1 source) Calculus of gallbladder without cholecystitis without obstruction; Translations: [Calculus of gallbladder w/o cholecystitis w/o obstruction] Onset: 06-10-2022 Episodic Other liver diseases (1 source) Abnormal levels of other serum enzymes; Translations: [Abnormal levels of other serum enzymes] Onset: 06-10-2022 Episodic Results Test Name Value Interpretation Reference Range Facil ity Vital Signs Date Time Vital Sign Value Performing Clinician Brynn storyy 06-14-2023 13:08-0400 Body height 175.26 cm Breezy [employer] Work Phone: [facility] Work Phone: 06-14-2023 13:08-0400 Body mass index (BMI) [Ratio] 29.09 kg/m2 Breezy [employer] Work Phone: [facility] Work Phone: 06-14-2023 13:08-0400 Body surface area Derived from formula 2.05 m2 Breezy [employer] Work Phone: [facility] Work Phone: 06-14-2023 13:08-0400 Body weight 89.36 kg Breezy [employer] Work Phone: [facility] Work Phone: 06-14-2023 13:08-0400 Respiratory rate 16 /min Breezy L [employer] Work Phone: [facility] Work Phone: 04-20-2022 13:33-0400 Body mass index (BMI) [Ratio] 29.83 kg/m2 Breezy [employer] Work Phone: [facility] Work Phone: 04-20-2022 13:33-0400 Body surface area Derived from formula 2.07 m2 Breezy L Hellinger Work Phone: VC-Pyneyzu-Hhyyaxq Work Phone: 04-20-2022 13:33-0400 Body weight 91.63 kg Breezy L Hellinger Work Phone: LG-Fclwsil-Skldgth Work Phone: 04-20-2022 13:33-0400 Diastolic blood pressure 72 mm[Hg] Breezy L Hellinger Work Phone: IL-Pufbpxq-Kgvrkfx Work Phone: 04-20-2022 13:33-0400 Respiratory rate 18 /min Breezy L Hellinger Work Phone: PC-Pevbhlf-Amrvfoz Work Phone: 04-20-2022 13:33-0400 Systolic blood pressure 118 mm[Hg] Breezy L Hellinger Work Phone: VY-Zjopfme-Kohactk Work Phone: 10-20-2021 13:31-0500 Body height 175.26 cm Breezy Mark Anthony Hellinger Work Phone: ZW-Opklrvd-Dysjrfa Work Phone: 10-20-2021 13:31-0500 Body mass index (BMI) [Ratio] 31.21 kg/m2 Breezy L Hellinger Work Phone: RA-Nuvamkk-Xycgjnk Work Phone: 10-20-2021 13:31-0500 Body surface area Derived from formula 2.11 m2 Breezy L Hellinger Work Phone: TA-Mvmzble-Abscrsq Work Phone: 10-20-2021 13:31-0500 Body weight 95.88 kg Breezy L Hellinger Work Phone: NJ-Gtylogr-Ocijfxs Work Phone: 10-20-2021 13:31-0500 Diastolic blood pressure 76 mm[Hg] Breezy L Hellinger Work Phone: LH-Kctmrlt-Tdmropb Work Phone: 10-20-2021 13:31-0500 Heart rate 62 /min Breezy L Hellinger Work Phone: RY-Rgihbzi-Ynevjgm Work Phone: 10-20-2021 13:31-0500 Systolic blood pressure 156 mm[Hg] Breezy L Hellinger Work Phone: LT-Ibadlki-Gjsdndo Work Phone: 08-18-2021 10:55-0500 Body height 175.26 cm Breezy L Hellinger Work Phone: GA-Revoelv-Gpiwtes 2100 Work Phone: 08-18-2021 10:55-0500 Body mass index (BMI) [Ratio] 30.42 kg/m2 Breezy L Hellinger Work Phone: YT-Uemreqc-Arlsmrh 2100 Work Phone: 08-18-2021 10:55-0500 Body surface area Derived from formula 2.09 m2 Breezy L Hellinger Work Phone: JD-Bdgnysn-Urlzseb 2100 Work Phone: 08-18-2021 10:55-0500 Body weight 93.44 kg Breezy L Billylinger Work Phone: KJ-Qthbpnw-Ypwbhwo 2100 Work Phone: 08-18-2021 10:55-0500 Diastolic blood pressure 75 mm[Hg] Breezy L Hellinger Work Phone: WH-Lzdxpab-Wehjlcs 2100 Work Phone: 08-18-2021 10:55-0500 Heart rate 75 /min Breezy L Hellinger Work Phone: JV-Cxibxwu-Hacywmq 2100 Work Phone: 08-18-2021 10:55-0500 Systolic blood pressure 165 mm[Hg] Breezy L Hellinger Work Phone: CR-Vidkgxf-Iaaqvzi 2100 Work Phone: 04-12-2021 14:44-0400 Body height 175.26 cm Breezy Cervanteslinger Work Phone: NP-Lzpitpy-Zyqfpfy Work Phone: 04-12-2021 14:44-0400 Body mass index (BMI) [Ratio] 30.61 kg/m2 Breezy Cervanteslinger Work Phone: LV-Ekvtvio-Tikrdev Work Phone: 04-12-2021 14:44-0400 Body surface area Derived from formula 2.1 m2 Breezy Cervanteslinger Work Phone: GG-Aevlozp-Rkkkjwf Work Phone: 04-12-2021 14:44-0400 Body weight 94.01 kg Breezy Cervanteslinger Work Phone: QU-Mhjmnrf-Nsohhip Work Phone: 04-12-2021 14:44-0400 Diastolic blood pressure 76 mm[Hg] Breezy Cervanteslinger Work Phone: TM-Gimozyu-Gbhecka Work Phone: 04-12-2021 14:44-0400 Heart rate 69 /min Breezy Cervanteslinger Work Phone: GN-Qarmbyl-Nqkufal Work Phone: 04-12-2021 14:44-0400 Systolic blood pressure 140 mm[Hg] Breezy L Hellinger Work Phone: JL-Zmhxzlj-Yniqule Work Phone: 03-08-2021 14:27-0400 Body height 175.26 cm Isrrael Elias II, MD Work Phone: YB-Mnpebmk-Fdetyvz Work Phone: 03-08-2021 14:27-0400 Body mass index (BMI) [Ratio] 29.98 kg/m2 Isrrael Elias II, MD Work Phone: ZZ-Gkicfye-Kibweuo Work Phone: 03-08-2021 14:27-0400 Body surface area Derived from formula 2.08 m2 Isrrael Elias II, MD Work Phone: GI-Igltxxz-Iljyhqp Work Phone: 03-08-2021 14:27-0400 Body weight 92.09 kg Isrrael Elias II, MD Work Phone: UD-Diurmdo-Anjikbx Work Phone: 03-08-2021 14:27-0400 Diastolic blood pressure 74 mm[Hg] Isrrael Elias II, MD Work Phone: ZN-Zgstpkn-Zvurjcn Work Phone: 03-08-2021 14:27-0400 Heart rate 74 /min Isrrael Elias II, MD Work Phone: VS-Lzhobtf-Elaeyuq Work Phone: 03-08-2021 14:27-0400 Systolic blood pressure 161 mm[Hg] Isrrael Elias II, MD Work Phone: XB-Jcznklj-Lvvvksl Work Phone: 03-30-2020 16:56-0400 BMI (Body Mass Index) 27.75 kg/m2 Isrrael Elias II [facility] Work Phone: 03-30-2020 16:56-0400 Body weight 88.91 kg Isrrael Elias II CX-Jufwata-Acbil nd Work Phone: 03-30-2020 16:56-0400 BP Diastolic 90 mm[Hg] Isrrael Elias II XA-Dmzjbiy-Jwgjn nd Work Phone: 03-30-2020 16:56-0400 BP Systolic 160 mm[Hg] Isrrael Elias II NK-Ekvrfth-Doepy nd Work Phone: 03-30-2020 16:56-0400 BSA (Body Surface Area) 2.08 m2 Isrrael Elias II XD-Vsljloe-Mbikibm Work Phone: 03-30-2020 16:56-0400 Height 179 cm Isrrael Elias II, MPER-Amszvpv-Wjvba nd Work Phone: 03-30-2020 16:56-0400 Pulse (Heart Rate) 72 /min Isrrael Elias II, [facility] Work Phone: Encounters Encounter Date Encounter Type Care Provider Facility Start: 08-28-2023 End: 08-29-2023 [facility] Start: 07-20-2023 End: 07-21-2023 ambulatory MARCO A MONTES [facility] Start: 07-20-2023 End: 07-20-2023 Subsequent hospital visit by physician Otoniel Marie 2 [facility] Procedures Date Procedure Procedure Detail Performing Clinician Start: 08-28-2023 DEXA BONE DENSITY MARCO A MONTES Start: 07-20-2023 US ABDOMEN LIMITED LIVER MARCO A MONTES Start: 07-20-2023 Us abdominal real ti me w/image limited Marco A Montes MD Start: 11-02-2022 End: 11-02-2022 Colonoscopy Breezy [place] Work Phone: Biopsy of prostate Isrrael Elias II, MD Work Phone: Construction of shunt Isrrael orantes II History of coronary artery bypass grafting S/P CABG x 3( Confirmed ) MONALISA BULLOCK MD Plan of Treatment Date Care Activity Detail Author Start: 11-02-2032 Screening for malignant neoplasm of colon [facility] Start: 12-13-2023 End: 12-13-2023 Patient encounter procedure [facility] Start: 08-28-2023 End: 08-28-2023 Professional / ancillary services management 08/28/2023 7:50 AM EST Ancillary Procedure [facility] [address] [place] [address] [facility] Start: 06-14-2023 FUV, Provider: Isrrael Elias II, Status: Pen, Time: 1:00 PM FUV, Provider: Isrrael Elias II, Status: Pen, Time: 1:00 PM FJ-Hmzkdgf-Dbzutdm Work Phone: Start: 05-26-2023 Influenza vaccination Influenza Vaccine (#1) [facility] Start: 12-14-2022 FUV, Provider: Isrrael Elias II, Status: Pen, Time: 1:00 PM FUV, Provider: Isrrael Elias II, Status: Pen, Time: 1:00 PM NC-Mnxmvvc-Hsyzplvz HC 232 DO Work Phone: Start: 05-12-2022 VIRFUVHOME, Provider: Isrrael Elias II, Status: Pen, Time: 9:45 AM VIRFUVHOME, Provider: Isrrael Elias II, Status: Pen, Time: 9:45 AM LL-Hrmhahd-Etwjmpp Work Phone: Start: 04-20-2022 FUV, Provider: Isrrael Elias II, Status: Pen, Time: 1:30 PM FUV, Provider: Isrrael Elias II, Status: Pen, Time: 1:30 PM WQ-Ruhztuw-Hbwpouz Work Phone: Start: 10-20-2021 FUV, Provider: Isrrael Elias II, Status: Pen, Time: 1:30 PM FUV, Provider: Isrrael Elias II, Status: Pen, Time: 1:30 PM IM-Sunkvoe-Jbarrcp Work Phone: Start: 04-12-2021 FUV, Provider: Isrrael Elias II, Status: Pen, Time: 2:45 PM FUV, Provider: Isrrael Elias II, Status: Pen, Time: 2:45 PM PK-Oduzcps-Ildohto Work Phone: Start: 01-27-2021 COVID-19 Vaccine (2 - Booster for Yasmany series) COVID-19 Vaccine (2 - Booster for Yasmany series) [facility] Start: 07-26-2019 Pneumococcal Vaccine: 65+ Years (2 - PPSV23 or PCV20) Pneumococcal Vaccine: 65+ Years (2 - PPSV23 or PCV20) [facility] Start: 01-19-2002 Zoster Vaccines (1 of 2) Zoster Vaccines (1 of 2) [facility] Start: 01-19-1974 DTaP/Tdap/Td Vaccines (1 - Tdap) DTaP/Tdap/Td Vaccines (1 - Tdap) [facility] Start: 01-19-1970 Hepatitis C screening Hepatitis C Screening [facility] Start: 1950 Lipid panel Lipid Panel [facility] Start: 1950 Medicare Annual Wellness Visit Medicare Annual Wellness Visit (AWV) [facility] Start: 1950 Screening for malignant neoplasm of colon [facility] End: 07-20-2023 US Liver limited [facility] Service Area Work Phone: Immunizations Immunization Date Immunization Notes Care Provider Fa abebe 12-02-2020 Yasmany COVID-19 Vac cine 0.5 ML Intramuscular Suspension Breezy [place] Work Phone: GJ-Sinhgpz-Oxcyhas 2100 Work Phone: 07-26-2018 pneumococcal conjuga te vaccine, 13 valent Breezy [place] Work Phone: WG-Bxpcite-Phftyvz 2100 Work Phone: Payers Date Payer Category Payer Unknown 2017 Unknown [id number] 2017 Medicare MEDICARE MEDICAR E PART A AND B [id number] 2017-Present [address] [place] [address] [id number] 2016 Medicare [id number] 1950 Unknown [id number] 1952 Unknown [id number] 1952 Unknown [id number] 1952 Unknown [id number] 1952 Unknown [id number] 1952 Unknown [id number] 1952 Unknown [id number] Social History Date Type Detail Facility Former smoker Former smoker CQ-Qintusl-Bf hland Work Phone: Start: 11-12-2020 Tobacco smoking status Never smoked tobacco (finding) [facility] Sex Assigned At Sex [facility] Tobacco smoking status UTIS Tobacco smoking consumption unknown [facility] Work Phone: Start: 1950 Sex Assigned At Not on file [facility] Work Phone: Gender identity Not on file [facility] Work Phone: Start: 07-10-2023 End: 07-20-2023 Exposure to SARS-CoV-2 (event) Not sure [facility] NEGATED: Highlighted row - - TQ-Xyfbobm-Trxdpcv Work Phone: Functional Status Date Assessment Result Facility NEGATED: Highlighted row Functional performance Functional status health issues are not documented Disease WF-Kancpvg-Rnasgcp Work Phone: Mental Status Date Assessment Result Facility NEGATED: Highlighted row Cognitive function [Interpretation] Cognitive status health issues are not documented Disease ZO-Tfrbtwa-Mdcsyck Work Phone: Clinical Notes 03-15-2021 to 09-14-2023 Laboratory Note Date & Type Note Facility 09-14-2023 Note PROCEDURE: WRIST LEF T COMPLETE, 09/14/2023, 8:00 AM EST. CLINICAL INDICATIONS: Closed fracture, distal ulna. COMPARISON: 07/28/2023. TECHNIQUE: Left wrist 3 views. FINDINGS: Casting material obscures bone detail. Stable alignment and morphology of the comminuted distal ulnar fracture. Near-anatomic alignment is seen. Incomplete osseous union noted. Articular margin congruent. First carpometacarpal osteoarthrosis is noted. Generalized soft tissue swelling is seen. IMPRESSION: 1. Stable alignment and morphology of healing comminuted distal ulnar fracture, incomplete osseous union. 2. Soft tissue swelling. 3. Osteoarthrosis. [facility] 04-15-2023 History of Present illness Narrative Patient has hx of elevated PSA. Most recent PSA was 10.40 on 06/17. Prior PSA was 9.23 09/15, prior was 11.08 on 04/15. Prior PSA was 8.45 on 03/15, prior was 6.44 08/14.. Prior PSA was 11.5 in 03/14.. 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 Patient had negative TRUS in 04/13.. . BPH sx are mild and stable...some urgency and frequency, Flomax is helpful...No dysuria...No hematuria...Nocturia 1x...No medications for LUTs.. chronic hx of kidney stones...last stone was at least 20 years ago...ED is chronic. Medication did not help this KG-Hwhxfbn-Ttbjzwi Work Phone: 05-12-2022 Chief complaint Narrative - Reported An interactive audio and video telecommunication system which permits real time communications between the patient (at the originating site) and provider (at the distant site) was utilized to provide this telehealth service.Verbal consent was requested and obtained from BRAULIO MADDOX on this date, 05/12/2022 09:45 AM , for a telehealth visit.Prostate MRI results AE-Bwhpeun-Mxzchoyu HC 232 DO Work Phone: 04-15-2022 History of Present illness Narrative Patient has hx of elevated PSA. Most recent PSA was 11.08 on 04/15. Prior PSA was 8.45 on 03/15, prior was 6.44 08/14.. Prior PSA was 11.5 in 03/14.. Patient had negative TRUS in 04/13.. 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 BPH sx are mild and stable...some urgency and frequency, Flomax is helpful...No dysuria...No hematuria...Nocturia 1x...No medications for LUTs.. chronic hx of kidney stones...last stone was at least 20 years ago...ED is chronic. Medication did not help this CY-Xslgems-Ihbdoul Work Phone: 04-15-2022 History of Present illness Narrative Patient is here for prostate MRI results. MRI showed stable PI-RAD 3 lesion. hx of elevated PSA. Most recent PSA was 11.08 on 04/15. Prior PSA was 8.45 on 03/15, prior was 6.44 08/14.. Prior PSA was 11.5 in 03/14.. Patient had negative TRUS in 04/13.. 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 BPH sx are mild and stable...some urgency and frequency, Flomax is helpful...No dysuria...No hematuria...Nocturia 1x...No medications for LUTs.. chronic hx of kidney stones...last stone was at least 20 years ago...ED is chronic. Medication did not help this NG-Ddfilif-Ryxgnxnq HC 232 DO Work Phone: 08-18-2021 History of Present illness Narrative Dear Mrs Monatna,I saw your patient Mr. Braulio Maddox who you referred for surgical consultation for primary hyperparathyroidism.As I am sure you well know he is a pleasant 71-year-old gentleman. During routine laboratory testing he was found to have some calcium levels toward the upper end of normal ranging from 10.1-10.3. He also had an ionized calcium level that was slightly high at 6.0 with a normal range of 4.5-5.6. With that he was sent for parathyroid hormone testing. On 2 separate occasions he had a parathyroid hormone level right at 100. This is slightly high for the normal range of your laboratory being 80 on the upper end of normal. His vitamin D levels are normal at 38. Therefore he does have some biochemical evidence of mild primary hyperparathyroidism.You did send him for a sestamibi scan. This was completed in [facility] but was negative for any uptake to indicate an obvious parathyroid adenoma.He has a history of some hypothyroidism and takes thyroid hormone replacement. His most recent TSH was normal at 2.86.In terms of potential symptoms associated with hyperparathyroidism or renal standpoint he said he had kidney stones more than 20 years ago. No stones recently. He has had a 24-hour urine calcium collection that was done earlier this year in October 2020. His urinary calcium level was normal at 155. Therefore there is no evidence of hypercalciuria associated with his hyperparathyroidism. He does report some increased urinary frequency but again I told him this would not be related to parathyroid or calcium as his urine calcium levels are normal. He reports some muscle fatigue no bone pain no fractures she is never had a DEXA bone density test. GI no constipation no pancreatitis no peptic ulcer disease. Neurocognitive he does have fatigue and decreased energy levels. We discussed this is a fairly nonspecific symptom.He denies any personal history of head neck or chest radiation exposure no neck pain no difficulty breathing or swallowing no troubles with his voice.Family history no hyperparathyroidism. PY-Hcwsyge-Umjpljr 2100 Work Phone: 08-14-2021 History of Present illness Narrative Patient has hx of elevated PSA. Most recent PSA is pending from PCP. Prior PSA was 8.45 on 03/15, prior was 6.44 08/14.. Prior PSA was 11.5 in 03/14.. Patient had negative TRUS in 04/13.. 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 BPH sx are mild and stable...some urgency and frequency...No dysuria...No hematuria...Nocturia 1x...No medications for LUTs.. chronic hx of kidney stones...last stone was at least 20 years ago...ED is chronic. Medication did not help this XH-Owtpwxh-Krsnxaw Work Phone: 03-15-2021 History of Present illness Narrative Patient is here for prostate MRI results. Patient has hx of elevated PSA. MRI showed three lesions that are consistent PI-RADS 3. Most recent PSA was 8.45 on 03/15, prior was 6.44 08/14.. Prior PSA was 11.5 in 03/14.. Patient had negative TRUS in 04/13.. BPH sx are mild and stable...some urgency and frequency...No dysuria...No hematuria...Nocturia 1x...No medications for LUTs.. chronic hx of kidney stones...last stone was at least 20 years ago...ED is chronic. Medication did not help this QM-Ncerjue-Auivmai Work Phone: Evaluation + Plan note Future Appointments Appointment Date:01/13/2022 01:30:00 PM Scheduled Provider:MOOKIE MONTOYA MD Location:[facility] Appointment Type:ENDO OV Appointment Date:03/10/2022 01:15:00 PM Scheduled Provider:MOOKIE MONTOYA MD Location:[facility] Appointment Type:ENDO OV Future Scheduled TestsCalcium Level Ionized 01/13/22Calcium Level Ionized 11/10/21Calcium Level Ionized 03/10/22Phosphorus Level 01/13/22Phosphorus Level 03/10/22Thyroid Stimulating Hormone 01/13/22Thyroid Stimulating Hormone 03/10/22Free T4 01/13/22Free T4 03/10/22A1C Hemoglobin 03/10/22Calcium Random Urine 01/13/22Calcium Random Urine 03/10/22Calcium, 24 Hour Urine 11/10/21Creatinine, 24 Hour Urine 11/10/21Creatinine Random Urine 01/13/22Creatinine Random Urine 03/10/22Vitamin D, 1,25-Dihydroxy 01/13/22Vitamin D, 1,25-Dihydroxy 03/10/22PTH, Intact 01/13/22PTH, Intact 03/10/22Vitamin D Level 01/13/22Vitamin D Level 03/10/22Complete Metabolic Panel 01/13/22Complete Metabolic Panel 03/10/22 [facility] documented in this encounter [facility] Work Phone: Evaluation note* Diagnosis Other skilled nursing (current) drug therapy documented in this encounter [facility] Work Phone: Hospital course Narrative No data available for this section [facility] Hospital Discharge instructions No data available for this section [facility] Progress note No data available for this section [facility] Summary Purpose Family History No Family History Records Found Father Name Dates Details Family history of diabetes m ellitus(V18.0, Z83.3) Status:Active Unknown Family Member Name Dates Details Family history of diabetes m ellitus: Father(V18.0, Z83.3) Status:Active Unknown Family Member Name Dates Details Family history of diabetes m ellitus: Father(V18.0, Z83.3) Status:Active Unknown Family Member Name Dates Details Family history of diabetes m ellitus: Father(V18.0, Z83.3) Status:Active Unknown Family Member Name Dates Details Family history of diabetes m ellitus: Father(V18.0, Z83.3) Status:Active Unknown Family Member Name Dates Details Family history of diabetes m ellitus: Father(V18.0, Z83.3) Status:Active Unknown Family Member Name Dates Details Family history of diabetes m ellitus: Father(V18.0, Z83.3) Status:Active Unknown Family Member Name Dates Details Family history of diabetes m ellitus: Father(V18.0, Z83.3) Status:Active Unknown Family Member Name Dates Details Family history of diabetes m ellitus: Father(V18.0, Z83.3) Status:Active Unknown Family Member Name Dates Details Family history of diabetes m ellitus: Father(V18.0, Z83.3) Status:Active Unknown Family Member Name Dates Details Family history of diabetes m ellitus: Father(V18.0, Z83.3) Status:Active Unknown Family Member Name Dates Details Family history of diabetes m ellitus: Father(V18.0, Z83.3) Status:Active Unknown Family Member Name Dates Details Family history of diabetes m ellitus: Father(V18.0, Z83.3) Status:Active Unknown Family Member Name Dates Details Family history of diabetes m ellitus: Father(V18.0, Z83.3) Status:Active Advance Directives No Advanced Directives Records FoundNo Advanced Directives Records FoundNo Advanced Directives Records FoundNo Advanced Directives Records FoundNo Advanced Directives Records FoundNo Advanced Directives Records FoundNo Advanced Directives Records Found Chief Complaint Prostate MRI results6 MO W/ psa6 month f/u w/PSA6 mo w/ psa Reason for Referral Specialty Diagnoses / Procedures Referred By Vadim spears Referred To Contact Radiology Diagnoses Other skilled nursing (current) drug therapy Procedures US abdomen limited liver Marco A Montes MD [address] [facility], [facility] [address] [place] [address] Referral ID Status Reason Start Date Expiration Date Visits Requested Visits Authorized [id number] Pending Review Perform Procedure 3 07/17/2024 1 1 Additional Source Comments (unrecognized sect ion and content) No Status Records FoundNo Status Records FoundNo Status Records FoundNo Status Records FoundNo Status Records FoundNo Status Records FoundNo Status Records Found INFORMATION SOURCE (unrecogn ized section and content) DATE CREATED AUTHOR AUTHOR'S ORGANIZ ATION 01/03/2022 [facility] ([place]) DATE CREATED AUTHOR AUTHOR'S ORGANIZ ATION 11/08/2022 [facility] DATE CREATED AUTHOR AUTHOR'S ORGANIZ ATION 06/16/2023 [facility] DATE CREATED AUTHOR AUTHOR'S ORGANIZ ATION 06/16/2023 [employer] DATE CREATED AUTHOR AUTHOR'S ORGANIZ ATION 09/03/2023 [facility] DATE CREATED AUTHOR AUTHOR'S ORGANIZ ATION 09/15/2023 [facility] ospital Care Team (unrecognized sect ion and content) Jd Edwards Developer Relationship Specialty Start Date End Date Jose De Jesus Ortiz MD [address] [place] [address] PCP - General Family Medicine 07/20/23 Reason for Visit (unrecogniz ed section and content) Referral ID Status Reason Start Date Expiration Date Visits Requested Visits Authorized [id number] Pending Review Perform Procedure 3 07/17/2024 1 1 Specialty Diagnoses / Procedures Referred By Contjessica t Referred To Contact Radiology Diagnoses Other skilled nursing (current) drug therapy Procedures US abdomen limited liver Marco A Montes MD [address] [facility] [address] [place] [address] FOR RECORDS PERTAINING TO PATIENTS WHO ARE OR HAVE BEEN ENROLLED IN A CHEMICAL DEPENDENCY/SUBSTANCEABUSE PROGRAM, SOME INFORMATION MAY BE OMITTED. This clinical summary was aggregated from multiple sources. Caution should be exercised in using it in the provision of clinical care. This summary normalizes information from multiple sources, and as a consequence, information in this document may materially change the coding, format and clinical context of patient data. In addition, data may be omitted in some cases. CLINICAL DECISIONS SHOULD BE BASED ON THE PRIMARY CLINICAL RECORDS. [facility] [employer] [facility]. provides no warranty or guarantee of the accuracy or completeness of information in this document.
[2023-09-26 12:23] LABS: Absolute Neutrophil Count 5.9 X10^3/uL (2.0-7.7); Basophil# 0.07 X10^3/uL; Basophil% 0.9 % (0-1); Eosinophil# 0.05 X10^3/uL; Eosinophils% 0.7 % (0-5); Hematocrit 47.1 % (40-54); Hemoglobin 15.5 g/dL (13.0-16.5); Lymphocyte % 13.3 % (19-41); Mean Corp Hgb Conc 32.9 g/dL (32-36); Mean Corpuscular Hgb 31.6 pg (27.0-32.0); Mean Corpuscular Volume 95.9 fL (80-94); Monocyte# 0.42 X10^3/uL; Monocyte% 5.6 % (0-10); NRBC Flagged by Analyzer 0 % (0-5); Neutrophil # 5.89 X10^3/uL (2.7-7.7); Platelet Count 142 K/mm3 (150-450); RBC Distribution Width CV 12.2 % (11.6-14.6); RBC Distribution Width SD 42.5 fl (35.1-43.9); Red Blood Count 4.91 M/mm3 (4.6-6.2); White Blood Count 7.5 K/mm3 (4.4-11.0)
[2023-09-26 12:36] LABS: ALB/GLOB Ratio 1.2 RATIO (0.9-2.4); AST(SGOT) 20 U/L (15-37); Alanine Aminotransfer ALT/SGPT 41 U/L (16-61); Alkaline Phosphatase 132 U/L (45-117); Anion Gap 3 (5-15); BUN 15 mg/dL (7-18); Calcium,Total 11.2 mg/dL (8.5-10.1); Chloride 107 mmol/L (98-107); EST Glomerular Filtration Rate 78 mL/min (>60); Est Glom Filt Rate - Afr Amer 95 mL/min (>60); Globulin 3.2 g/dL (2.2-4.2); Glucose 144 mg/dL (74-106); Potassium 3.8 mmol/L (3.5-5.1); Protein, Total 7.2 g/dL (6.4-8.2); Sodium Level 141 mmol/L (136-145)
== END | disposition home or self-care (01) ==
LOC: MTLAB 09:59
PROVIDERS: PCP Family Medicine; Referring Provider Internal Medicine Rheumatology; Visit Provider Internal Medicine Rheumatology
DX: M06.4 Inflammatory polyarthropathy (principal); Z79.899 Other long term (current) drug therapy
CPT/HCPCS: 36415; 80053; 85025

== ENCOUNTER → 2023-10-17 | Outpatient (CLI) | payer MEDICARE, OTHER, SELFPAY ==
--- OUTSIDE RECORDS SUMMARY | 2023-10-17 11:44 | XMS RPT_ITS | CCD ---
Author Name Unknown Address [address] [place] [address] Organization [facility] Care Team Providers Care Personnel Recruiter Name Role Phone Isrrael Elias II Unavailable [...] Sulfonamides (Antibiotic); Translations: [Sulfa Drugs] Drug Allergy KM-Xjkmssg-Vbt land Work Phone: (12 sources) Sulfonamides (Antibiotic); Translations: [Sulfa Drugs] Allergy to drug (finding) AH-Nfnqlop-Tie well 2100 Work Phone: (2 sources) Mafenide; Translations: [mafenide topical] Drug Allergy burn [facility] (1 source) ALLERGIES NOT ON FILE; Translations: [ALLERGIES NOT ON FILE] Propensity to adverse reactions (disorder) [facility] 2 Repository Medications Current Medications Medication Drug [...] Onset: 3 Episodic Other aftercare (1 source) roasterman (current) use of systemic steroids; Translations: [roasterman (current) use of systemic steroids] Onset: 3 Episodic Other aftercare (3 sources) Other correction (current) drug therapy; Translations: [Other director long term care (current) drug therapy] Onset: 2 Episodic Other aftercare (2 sources) Long-term current use of drug therapy; Translations: [Other correction (current) drug therapy] 07-20-2023 Episodic Other endocrine disorders (12 sources) Primary hyperparathyroidism; Translations: [Primary hyperparathyroidism] Chronic Other endocrine disorders (2 sources) Hyperparathyroidism 11-12-2020 Chronic Other endocrine disorders (2 sources) Hyperparathyroidism, unspecified; Translations: [Hyperparathyroidism, unspecified ([facility])] Onset: 3 Chronic Other male genital disorders [...] 06-14-2023 13:08-0400 Body height 175.26 cm Breezy [employer] Work Phone: [employer] Work Phone: 06-14-2023 13:08-0400 Body mass index (BMI) [Ratio] 29.09 kg/m2 [employer] Work Phone: [employer] Work Phone: 06-14-2023 13:08-0400 Body surface area Derived from formula 2.05 m2 [employer] Work Phone: [employer] Work Phone: 06-14-2023 13:08-0400 Body weight 89.36 kg Breezy [employer] Work Phone: [employer] Work Phone: 06-14-2023 13:08-0400 Respiratory rate 16 /min Breezy L [employer] Work Phone: [employer] Work Phone: 04-20-2022 13:33-0400 Body mass index (BMI) [Ratio] 29.83 kg/m2 [employer] Work Phone: [employer] Work Phone: 04-20-2022 13:33-0400 Body surface area Derived from formula 2.07 m2 Breezy L Hellinger Work Phone: YO-Sdobzxt-Usavsyv Work Phone: 04-20-2022 13:33-0400 Body weight 91.63 kg Breezy L Hellinger Work Phone: FP-Secmdxi-Pgslxhb Work Phone: 04-20-2022 13:33-0400 Diastolic blood pressure 72 mm[Hg] Breezy L Hellinger Work Phone: ZQ-Hgqeiqj-Aexhjtg Work Phone: 04-20-2022 13:33-0400 Respiratory rate 18 /min Breezy L Hellinger Work Phone: DA-Bfbabmg-Fvokeeh Work Phone: 04-20-2022 13:33-0400 Systolic blood pressure 118 mm[Hg] Breezy L Hellinger Work Phone: BR-Aljuvsw-Nscmxol Work Phone: 10-20-2021 13:31-0500 Body height 175.26 cm Breezy Mark Anthony Hellinger Work Phone: BZ-Fjeutnh-Ocaquab Work Phone: 10-20-2021 13:31-0500 Body mass index (BMI) [Ratio] 31.21 kg/m2 Breezy L Hellinger Work Phone: TP-Lqgnsxj-Ixhxnlq Work Phone: 10-20-2021 13:31-0500 Body surface area Derived from formula 2.11 m2 Breezy L Hellinger Work Phone: SE-Biwwrpy-Jtkycvx Work Phone: 10-20-2021 13:31-0500 Body weight 95.88 kg Breezy L Hellinger Work Phone: QA-Hyvavlo-Rypptzv Work Phone: 10-20-2021 13:31-0500 Diastolic blood pressure 76 mm[Hg] Breezy L Hellinger Work Phone: HP-Iflfeln-Obxdmls Work Phone: 10-20-2021 13:31-0500 Heart rate 62 /min Breezy L Hellinger Work Phone: KJ-Mgmhopm-Efyxgdu Work Phone: 10-20-2021 13:31-0500 Systolic blood pressure 156 mm[Hg] Breezy L Hellinger Work Phone: ZI-Xhgzyzg-Sjugxai Work Phone: 08-18-2021 10:55-0500 Body height 175.26 cm Breezy L Hellinger Work Phone: ZE-Lqkadus-Aycunbn 2100 Work Phone: 08-18-2021 10:55-0500 Body mass index (BMI) [Ratio] 30.42 kg/m2 Breezy L Hellinger Work Phone: AW-Pyyktbp-Egaxvwu 2100 Work Phone: 08-18-2021 10:55-0500 Body surface area Derived from formula 2.09 m2 Breezy L Hellinger Work Phone: KX-Eoaahqa-Gwxwdnv 2100 Work Phone: 08-18-2021 10:55-0500 Body weight 93.44 kg Breezy L Billylinger Work Phone: OY-Fpturff-Jotxsxd 2100 Work Phone: 08-18-2021 10:55-0500 Diastolic blood pressure 75 mm[Hg] Breezy L Hellinger Work Phone: VB-Foowpcb-Dekoaqt 2100 Work Phone: 08-18-2021 10:55-0500 Heart rate 75 /min Breezy L Hellinger Work Phone: AT-Qkgqoja-Olwejzp 2100 Work Phone: 08-18-2021 10:55-0500 Systolic blood pressure 165 mm[Hg] Breezy L Hellinger Work Phone: WS-Lomdohm-Crxwmnv 2100 Work Phone: 04-12-2021 14:44-0400 Body height 175.26 cm Breezy Cervanteslinger Work Phone: BM-Cuxcgkv-Ypkxiwp Work Phone: 04-12-2021 14:44-0400 Body mass index (BMI) [Ratio] 30.61 kg/m2 Breezy Cervanteslinger Work Phone: LJ-Lzklmth-Tphfjyt Work Phone: 04-12-2021 14:44-0400 Body surface area Derived from formula 2.1 m2 Breezy Cervanteslinger Work Phone: KH-Kbqfxra-Yskytjp Work Phone: 04-12-2021 14:44-0400 Body weight 94.01 kg Breezy Cervanteslinger Work Phone: VL-Wgyxhrz-Ofmbskv Work Phone: 04-12-2021 14:44-0400 Diastolic blood pressure 76 mm[Hg] Breezy Cervantselinger Work Phone: NM-Vjcgceq-Ldbwask Work Phone: 04-12-2021 14:44-0400 Heart rate 69 /min Breezy Cervanteslinger Work Phone: KW-Atcviio-Fxjdbnm Work Phone: 04-12-2021 14:44-0400 Systolic blood pressure 140 mm[Hg] Breezy L Hellinger Work Phone: RP-Qjamztt-Bzratbs Work Phone: 03-08-2021 14:27-0400 Body height 175.26 cm Isrrael Elias II, MD Work Phone: BQ-Emapkkl-Arrwqzr Work Phone: 03-08-2021 14:27-0400 Body mass index (BMI) [Ratio] 29.98 kg/m2 Isrrael Elias II, MD Work Phone: ZO-Davxtmv-Uhimork Work Phone: 03-08-2021 14:27-0400 Body surface area Derived from formula 2.08 m2 Isrrael Elias II, MD Work Phone: WW-Rujbpgz-Txapgsl Work Phone: 03-08-2021 14:27-0400 Body weight 92.09 kg Isrrael Elias II, MD Work Phone: YM-Icwjscb-Fgymkrq Work Phone: 03-08-2021 14:27-0400 Diastolic blood pressure 74 mm[Hg] Isrrael Elias II, MD Work Phone: WR-Pvbvsrv-Mrnlabq Work Phone: 03-08-2021 14:27-0400 Heart rate 74 /min Isrrael Elias II, MD Work Phone: HQ-Nsycadw-Onklfne Work Phone: 03-08-2021 14:27-0400 Systolic blood pressure 161 mm[Hg] Isrrael Elias II, MD Work Phone: QN-Uzqzeki-Xzizoye Work Phone: 03-30-2020 16:56-0400 BMI (Body Mass Index) 27.75 kg/m2 Isrrael Elias II [facility] -[place] Work Phone: 03-30-2020 16:56-0400 Body weight 88.91 kg Isrrael Elias II VW-Isozuuj-Teemr nd Work Phone: 03-30-2020 16:56-0400 BP Diastolic 90 mm[Hg] Isrrael Elias II XH-Difjeiz-Wvvpf nd Work Phone: 03-30-2020 16:56-0400 BP Systolic 160 mm[Hg] Isrrael Elias II HD-Qjgboyi-Yqjvb nd Work Phone: 03-30-2020 16:56-0400 BSA (Body Surface Area) 2.08 m2 Isrrael Elias II JV-Fsmnpau-Jkcmyem Work Phone: 03-30-2020 16:56-0400 Height 179 cm Isrrael Elias II, MPRJ-Pzkkryf-Koihk nd Work Phone: 03-30-2020 16:56-0400 Pulse (Heart Rate) 72 /min Isrrael Elias II, MP-Urology-[place] Work Phone: Encounters Encounter Date Encounter Type Care Provider Facility Start: 08-28-2023 End: 08[facility]29[facility] Start: 07-20-2023 End: 07-21-2023 ambulatory MARCO A MONT[facility] Start: 07-20-2023 End: 07-20-2023 Subsequent hospital visit by physician Otoniel Marie 2 [facility] Procedures Date Procedure Procedure Detail Performing Clinician [...] 11-02-2032 Screening for malignant neoplasm of colon [facility] Start: 12-13-2023 End: 12-13-2023 Patient encounter procedure [facility] Start: 08-28-2023 End: 08-28-2023 Professional / ancillary services management 08/28/2023 7:50 AM EST Ancillary Procedure [facility] [address] [facility] [address] [place] [address] [facility] Start: 06-14-2023 FUV, Provider: Isrrael Elias II, Status: Pen, Time: 1:00 PM FUV, Provider: Isrrael Elias II, Status: Pen, Time: 1:00 PM DG-Qrvfmhn-Ipwidhe Work Phone: Start: 05-26-2023 Influenza vaccination Influenza Vaccine (#1) [facility] Start: 12-14-2022 FUV, Provider: Isrrael Elias II, Status: Pen, Time: 1:00 PM FUV, Provider: Isrrael Elias II, Status: Pen, Time: 1:00 PM EH-Eisvxpj-Hvdfytxe HC 232 DO Work Phone: Start: 05-12-2022 VIRFUVHOME, Provider: Isrrael Elias II, Status: Pen, Time: 9:45 AM VIRFUVHOME, Provider: Isrrael Elias II, Status: Pen, Time: 9:45 AM HX-Gnhoqxb-Qtcwqbw Work Phone: Start: 04-20-2022 FUV, Provider: Isrrael Elias II, Status: Pen, Time: 1:30 PM FUV, Provider: Isrrael Elias II, Status: Pen, Time: 1:30 PM NX-Vjsqbmg-Unotqhm Work Phone: Start: 10-20-2021 FUV, Provider: Isrrael Elias II, Status: Pen, Time: 1:30 PM FUV, Provider: Isrrael Elias II, Status: Pen, Time: 1:30 PM ET-Hthhrlx-Mqrjsfz Work Phone: Start: 04-12-2021 FUV, Provider: Isrrael Elias II, Status: Pen, Time: 2:45 PM FUV, Provider: Isrrael Elias II, Status: Pen, Time: 2:45 PM ZI-Bpnlxck-Eduobgy Work Phone: Start: 01-27-2021 COVID-19 Vaccine (2 - Booster for Yasmany series) COVID-19 Vaccine (2 - Booster for Yasmany series) [facility] Start: 07-26-2019 Pneumococcal Vaccine: 65+ Years (2 - PPSV23 or PCV20) Pneumococcal Vaccine: 65+ Years (2 - PPSV23 or PCV20) [facility] Start: 01-19-2002 Zoster Vaccines (1 of 2) Zoster Vaccines (1 of 2) [facility] Start: 01-19-1974 DTaP/Tdap/Td Vaccines (1 - Tdap) DTaP/Tdap/Td Vaccines (1 - Tdap) [facility] Start: 01-19-1970 Hepatitis C screening Hepatitis C Screening [facility] Start: 1950 Lipid panel Lipid Panel [facility] Start: 1950 Medicare Annual Wellness Visit Medicare Annual Wellness Visit (AWV) [facility] Start: 1950 Screening for malignant neoplasm of colon [facility] End: 07-20-2023 US Liver limited [facility] Service Area Work Phone: Immunizations Immunization Date Immunization Notes Care Provider Fa abebe 12-02-2020 Yasmany COVID-19 Vac cine 0.5 ML Intramuscular Suspension Breezy [place] Work Phone: UK-Fgnakyg-Zdtklxu 2100 Work Phone: 07-26-2018 pneumococcal conjuga te vaccine, 13 valent Breezy [place] Work Phone: HP-Dmzqyxb-Cniujve 2100 Work Phone: Payers Date Payer Category Payer Unknown 2017 Unknown [id number] 2017 Medicare MEDICARE MEDICAR E PART A AND B [id number] 2017-Present [address] [place] [address] [id number] 2016 Medicare [id number] 1950 Unknown [id number] 1952 Unknown [id number] 1952 Unknown [id number] 1952 Unknown [id number] 1952 Unknown [id number] 1952 Unknown [id number] 1952 Unknown [id number] Social History Date Type Detail Facility Former smoker Former smoker XG-Wwqqiaa-Uo hland Work Phone: Start: 11-12-2020 Tobacco smoking status Never smoked tobacco (finding) [facility] Sex Assigned At Sex [facility] Tobacco smoking status MEIS Tobacco smoking consumption unknown [facility] Work Phone: Start: 1950 Sex Assigned At Not on file [facility] Work Phone: Gender identity Not on file [facility] Work Phone: Start: 07-10-2023 End: 07-20-2023 Exposure to SARS-CoV-2 (event) Not sure [facility] NEGATED: Highlighted row - - UE-Ihfndxq-Ocbpbqy Work Phone: Functional Status Date Assessment Result Facility NEGATED: Highlighted row Functional performance Functional status health issues are not documented Disease JI-Ymmlbbc-Zbnceum Work Phone: Mental Status Date Assessment Result Facility NEGATED: Highlighted row Cognitive function [Interpretation] Cognitive status health issues are not documented Disease NG-Sinuwmo-Qaedrea Work Phone: Clinical Notes 03-15-2021 to 09-14-2023 [...] union. 2. Soft tissue swelling. 3. Osteoarthrosis. [facility] 04-15-2023 History of Present illness Narrative [...] is chronic. Medication did not help this XA-Sjgacwo-Ejwdxba Work Phone: 05-12-2022 Chief complaint Narrative - Reported An interactive audio and video telecommunication system which permits real time communications between the patient (at the originating site) and provider (at the distant site) was utilized to provide this telehealth service.Verbal consent was requested and obtained from BRAULIO MADDOX on this date, 05/12/2022 09:45 AM , for a telehealth visit.Prostate MRI results II-Cayzlun-Tgdpppan HC 232 DO Work Phone: 04-15-2022 History [...] is chronic. Medication did not help this JW-Lqehmrz-Kiogjhk Work Phone: 04-15-2022 History of Present illness [...] is chronic. Medication did not help this EZ-Ahsutar-Oclssmdx HC 232 DO Work Phone: 08-18-2021 History of Present illness Narrative Dear Mrs [place],I saw your patient Mr. Braulio Maddox who [...] a sestamibi scan. This was completed in [facility] but was negative for any uptake to [...] troubles with his voice.Family history no hyperparathyroidism. UO-Ftauwqw-Nuatgfx 2100 Work Phone: 08-14-2021 History of Present [...] is chronic. Medication did not help this ZH-Ueijvmu-Qfmswjz Work Phone: 03-15-2021 History of Present illness [...] is chronic. Medication did not help this IQ-Akbrorr-Zwrqvnq Work Phone: Evaluation + Plan note Future [...] 03/10/22Complete Metabolic Panel 01/13/22Complete Metabolic Panel 03/10/22 [facility] documented in this encounter [facility] Work Phone: Evaluation note* Diagnosis Other director long term care (current) drug therapy documented in this encounter [facility] Work Phone: Hospital course Narrative No data available for this section [facility] Hospital Discharge instructions No data available for this section [facility] Progress note No data available for this section [facility] Summary Purpose Family History No Family [...] spears Referred To Contact Radiology Diagnoses Other director long term care (current) drug therapy Procedures US abdomen limited liver Marco A Montes MD [address] [facility], [facility] [address] [place] [address] Referral ID Status Reason Start Date Expiration Date Visits Requested Visits Authorized [id number] Pending Review Perform Procedure 3 07/17/2024 1 1 Additional Source Comments (unrecognized sect ion and content) No Status Records FoundNo Status Records FoundNo Status Records FoundNo Status Records FoundNo Status Records FoundNo Status Records FoundNo Status Records Found INFORMATION SOURCE (unrecogn ized section and content) DATE CREATED AUTHOR AUTHOR'S ORGANIZ ATION 01/03/2022 [facility] ([place]) DATE CREATED AUTHOR AUTHOR'S ORGANIZ ATION 11/08/2022 [facility] DATE CREATED AUTHOR AUTHOR'S ORGANIZ ATION 06/16/2023 [facility] DATE CREATED AUTHOR AUTHOR'S ORGANIZ ATION 06/16/2023 [employer] DATE CREATED AUTHOR AUTHOR'S ORGANIZ ATION 09/03/2023 [facility] DATE CREATED AUTHOR AUTHOR'S ORGANIZ ATION 09/15/2023 [facility] ospital Care Team (unrecognized sect ion and content) Personnel Recruiter Relationship Specialty Start Date End Date Jose De Jesus Ortiz MD [address] [place] [address] PCP - General Family Medicine 07/20/23 Reason for Visit (unrecogniz ed section and content) Referral ID Status Reason Start Date Expiration Date Visits Requested Visits Authorized [id number] Pending Review Perform Procedure 3 07/17/2024 1 1 Specialty Diagnoses / Procedures Referred By Contjessica t Referred To Contact Radiology Diagnoses Other director long term care (current) drug therapy Procedures US abdomen limited liver Marco A Montes MD [address] [facility] [address] [place] [address] FOR RECORDS PERTAINING TO PATIENTS WHO ARE [...] BE BASED ON THE PRIMARY CLINICAL RECORDS. [facility] [employer] [facility]. provides no warranty or guarantee of the accuracy or completeness of information in this document.
[2023-10-17 12:15] LABS: Absolute Lymphocyte Count 1.28 X10^3/uL (0.83-4.51); Absolute Neutrophil Count 3.2 X10^3/uL (2.0-7.7); Basophil# 0.04 X10^3/uL; Basophil% 0.8 % (0-1); Eosinophil# 0.12 X10^3/uL; Eosinophils% 2.3 % (0-5); Hematocrit 44.5 % (40-54); Hemoglobin 14.7 g/dL (13.0-16.5); Lymphocyte # 1.28 X10^3/ul (0.83-4.51); Lymphocyte % 24.3 % (19-41); Mean Corpuscular Hgb 31.3 pg (27.0-32.0); Mean Corpuscular Volume 94.7 fL (80-94); Mean Platelet Vol. 10.6 fl (6.2-12.0); Monocyte# 0.63 X10^3/uL; NRBC Flagged by Analyzer 0 % (0-5); Neutrophil # 3.16 X10^3/uL (2.7-7.7); Neutrophil % 59.8 % (47-70); Platelet Count 142 K/mm3 (150-450); RBC Distribution Width CV 12.3 % (11.6-14.6); RBC Distribution Width SD 42.7 fl (35.1-43.9); White Blood Count 5.3 K/mm3 (4.4-11.0)
[2023-10-17 12:37] LABS: ALB/GLOB Ratio 1.3 RATIO (0.9-2.4); AST(SGOT) 19 U/L (15-37); Alanine Aminotransfer ALT/SGPT 27 U/L (16-61); Albumin, Serum 3.7 g/dL (3.2-5.0); Alkaline Phosphatase 121 U/L (45-117); Anion Gap 2 (5-15); BUN 18 mg/dL (7-18); BUN/Creat Ratio 20.9 RATIO (10-20); Calcium,Total 10.2 mg/dL (8.5-10.1); Chloride 111 mmol/L (98-107); Creatinine, Serum 0.86 mg/dL (0.70-1.30); EST Glomerular Filtration Rate 93 mL/min (>60); Est Glom Filt Rate - Afr Amer 113 mL/min (>60); Globulin 2.9 g/dL (2.2-4.2); Glucose 100 mg/dL (74-106); Protein, Total 6.6 g/dL (6.4-8.2); Sodium Level 142 mmol/L (136-145)
== END | disposition home or self-care (01) ==
LOC: MTLAB 10:46
PROVIDERS: PCP Family Medicine; Referring Provider Internal Medicine Rheumatology; Visit Provider Internal Medicine Rheumatology
DX: M06.4 Inflammatory polyarthropathy (principal); Z79.899 Other long term (current) drug therapy
CPT/HCPCS: 36415; 80053; 85025

== ENCOUNTER → 2024-03-06 | Outpatient (CLI) | payer MEDICARE, OTHER, SELFPAY ==
[2024-03-06 12:37] LABS: Absolute Lymphocyte Count 1.21 X10^3/uL (0.83-4.51); Absolute Neutrophil Count 3.8 X10^3/uL (2.0-7.7); Basophil# 0.03 X10^3/uL; Basophil% 0.5 % (0-1); Eosinophils% 1.7 % (0-5); Hematocrit 40.3 % (40-54); Hemoglobin 13.3 g/dL (13.0-16.5); Lymphocyte # 1.21 X10^3/ul (0.83-4.51); Lymphocyte % 21.1 % (19-41); Mean Corpuscular Hgb 31.9 pg (27.0-32.0); Mean Corpuscular Volume 96.6 fL (80-94); Mean Platelet Vol. 10.8 fl (6.2-12.0); Monocyte# 0.57 X10^3/uL; Monocyte% 9.9 % (0-10); NRBC Flagged by Analyzer 0 % (0-5); Neutrophil # 3.81 X10^3/uL (2.7-7.7); Neutrophil % 66.5 % (47-70); Platelet Count 137 K/mm3 (150-450); RBC Distribution Width CV 13.2 % (11.6-14.6); RBC Distribution Width SD 46.8 fl (35.1-43.9); Red Blood Count 4.17 M/mm3 (4.6-6.2); White Blood Count 5.7 K/mm3 (4.4-11.0)
[2024-03-06 14:01] LABS: ALB/GLOB Ratio 1.4 RATIO (0.9-2.4); AST(SGOT) 26 U/L (15-37); Alanine Aminotransfer ALT/SGPT 31 U/L (16-61); Albumin, Serum 3.9 g/dL (3.2-5.0); Alkaline Phosphatase 146 U/L (45-117); Anion Gap 3 (5-15); BUN 19 mg/dL (7-18); BUN/Creat Ratio 23.1 RATIO (10-20); Calcium,Total 10.2 mg/dL (8.5-10.1); Chloride 110 mmol/L (98-107); Creatinine, Serum 0.82 mg/dL (0.70-1.30); EST Glomerular Filtration Rate 98 mL/min (>60); Est Glom Filt Rate - Afr Amer 118 mL/min (>60); Globulin 2.8 g/dL (2.2-4.2); Glucose 87 mg/dL (74-106); Protein, Total 6.7 g/dL (6.4-8.2); Sodium Level 141 mmol/L (136-145)
== END | disposition home or self-care (01) ==
PROVIDERS: PCP Nurse Practitioner Family; Referring Provider Internal Medicine Rheumatology; Visit Provider Internal Medicine Rheumatology
DX: M06.4 Inflammatory polyarthropathy (principal); Z79.899 Other long term (current) drug therapy
CPT/HCPCS: 36415; 80053; 85025

== ENCOUNTER → 2024-04-04 | Outpatient (CLI) | payer MEDICARE, OTHER, SELFPAY ==
[2024-04-04 10:01] LABS: Ionized Calcium 5.51 mg/dL (4.36-5.20)
[2024-04-04 10:48] LABS: PTHIN 83.7 pg/mL (18.4-80.1)
[2024-04-04 10:53] LABS: Vitamin D,25 Hydroxy 41.5 ng/mL
[2024-04-04 10:58] LABS: Hemoglobin A1c 5.4 % (3.8-5.6)
[2024-04-04 11:00] LABS: ALB/GLOB Ratio 1.2 RATIO (0.9-2.4); AST(SGOT) 25 U/L (15-37); Alanine Aminotransfer ALT/SGPT 29 U/L (16-61); Albumin, Serum 3.9 g/dL (3.2-5.0); Alkaline Phosphatase 139 U/L (45-117); Anion Gap 5 (5-15); BUN 18 mg/dL (7-18); BUN/Creat Ratio 22.3 RATIO (10-20); Calcium,Total 10.1 mg/dL (8.5-10.1); Chloride 106 mmol/L (98-107); Cholesterol 139 mg/dL (200); Creatinine, Serum 0.81 mg/dL (0.70-1.30); EST Glomerular Filtration Rate 100 mL/min (>60); Est Glom Filt Rate - Afr Amer 121 mL/min (>60); Globulin 3.3 g/dL (2.2-4.2); Glucose 112 mg/dL (74-106); High Density Lipoprotein 50 mg/dL; Potassium 4.1 mmol/L (3.5-5.1); Protein, Total 7.2 g/dL (6.4-8.2); Sodium Level 139 mmol/L (136-145); Triglycerides 50 mg/dL; Very Low Density Lipoprotein 10 mg/dL (5-40)
[2024-04-04 13:30] LABS: Calcium, Urine (Random) 14.1 mg/dL (Not Estab.)
[2024-04-04 16:46] LABS: Ionized Calcium Order ORDER TUBE
== END | disposition home or self-care (01) ==
PROVIDERS: PCP Nurse Practitioner Family; Referring Provider Internal Medicine Endocrinology, Diabetes & Metabolism; Visit Provider Internal Medicine Endocrinology, Diabetes & Metabolism
DX: E21.3 Hyperparathyroidism, unspecified (principal); E11.9 Type 2 diabetes mellitus without complications; E03.9 Hypothyroidism, unspecified; I10 Essential (primary) hypertension; E55.9 Vitamin D deficiency, unspecified
CPT/HCPCS: 36415; 80053; 80061; 82306; 82330; 82340; 82570; 83036; 83970; 84443

== ENCOUNTER → 2024-04-11 | Outpatient (CLI) | payer MEDICARE, OTHER, SELFPAY ==
[2024-04-11 18:41] LABS: Protein, Urine (Random) 20.7 mg/dL (<11.9)
== END | disposition home or self-care (01) ==
PROVIDERS: PCP Nurse Practitioner Family; Referring Provider Internal Medicine Endocrinology, Diabetes & Metabolism; Visit Provider Internal Medicine Endocrinology, Diabetes & Metabolism
DX: R60.0 Localized edema (principal)
CPT/HCPCS: 82570; 84156

== ENCOUNTER → 2024-04-30 | Outpatient (CLI) | payer MEDICARE, OTHER, SELFPAY ==
[2024-04-30 12:07] LABS: Absolute Lymphocyte Count 0.91 X10^3/uL (0.83-4.51); Absolute Neutrophil Count 2.9 X10^3/uL (2.0-7.7); Basophil# 0.02 X10^3/uL; Basophil% 0.4 % (0-1); Eosinophil# 0.11 X10^3/uL; Eosinophils% 2.4 % (0-5); Hematocrit 40.3 % (40-54); Hemoglobin 13.5 g/dL (13.0-16.5); Lymphocyte # 0.91 X10^3/ul (0.83-4.51); Lymphocyte % 20.2 % (19-41); Mean Corp Hgb Conc 33.5 g/dL (32-36); Mean Corpuscular Hgb 31.8 pg (27.0-32.0); Mean Corpuscular Volume 94.8 fL (80-94); Mean Platelet Vol. 10.8 fl (6.2-12.0); Monocyte# 0.58 X10^3/uL; Monocyte% 12.9 % (0-10); NRBC Flagged by Analyzer 0 % (0-5); Neutrophil # 2.86 X10^3/uL (2.7-7.7); Neutrophil % 63.7 % (47-70); Platelet Count 131 K/mm3 (150-450); RBC Distribution Width CV 12.8 % (11.6-14.6); RBC Distribution Width SD 43.8 fl (35.1-43.9); Red Blood Count 4.25 M/mm3 (4.6-6.2); White Blood Count 4.5 K/mm3 (4.4-11.0)
[2024-04-30 12:25] LABS: ALB/GLOB Ratio 1.2 RATIO (0.9-2.4); AST(SGOT) 25 U/L (15-37); Alanine Aminotransfer ALT/SGPT 30 U/L (16-61); Albumin, Serum 3.6 g/dL (3.2-5.0); Alkaline Phosphatase 137 U/L (45-117); Anion Gap 5 (5-15); BUN 19 mg/dL (7-18); BUN/Creat Ratio 19.8 RATIO (10-20); Calcium,Total 10.2 mg/dL (8.5-10.1); Chloride 107 mmol/L (98-107); Creatinine, Serum 0.96 mg/dL (0.70-1.30); EST Glomerular Filtration Rate 82 mL/min (>60); Est Glom Filt Rate - Afr Amer 99 mL/min (>60); Glucose 124 mg/dL (74-106); Potassium 4.2 mmol/L (3.5-5.1); Protein, Total 6.6 g/dL (6.4-8.2); Sodium Level 141 mmol/L (136-145)
== END | disposition home or self-care (01) ==
PROVIDERS: PCP Nurse Practitioner Family; Referring Provider Internal Medicine Rheumatology; Visit Provider Internal Medicine Rheumatology
DX: M06.4 Inflammatory polyarthropathy (principal); Z79.899 Other long term (current) drug therapy
CPT/HCPCS: 36415; 80053; 85025

== ENCOUNTER → 2024-07-12 | Outpatient (CLI) | payer MEDICARE, OTHER, SELFPAY ==
[2024-07-12 12:40] LABS: T4 Free Direct 1.24 ng/dL (0.76-1.46); Thyroid Stim Hormone (TSH) 0.335 uIU/mL (0.358-3.740)
== END | disposition home or self-care (01) ==
LOC: MTLAB 10:02
PROVIDERS: PCP Nurse Practitioner Family; Referring Provider Internal Medicine Endocrinology, Diabetes & Metabolism; Visit Provider Internal Medicine Endocrinology, Diabetes & Metabolism
DX: E21.3 Hyperparathyroidism, unspecified (principal); E11.9 Type 2 diabetes mellitus without complications; E55.9 Vitamin D deficiency, unspecified; I10 Essential (primary) hypertension
CPT/HCPCS: 36415; 84439; 84443

== ENCOUNTER → 2024-07-22 | Outpatient (CLI) | payer MEDICARE, OTHER, SELFPAY ==
--- OUTSIDE RECORDS SUMMARY | 2024-07-22 12:57 | XMS RPT_ITS | CCD ---
Author Organization [facility] Care Team Providers Care Ore Crusher Name Role Phone Jada COMBS, Daniella Unavailable Unavailable Update Needed Unavailable Unavailable Update Needed Unavailable Unavailable Unavailable Unavailable Marcia Norwoody Mark Anthony Unavailable [phone] Unavailable Unavailable REESE CORRAL, DR JOSE DE JESUS Zheng Primary Care Physician Un available Thomae, Dr. Kain Henderson Admitting Unavailable Thomae, Dr. Kain Henderson Attending Unavailable Helsean, Ms. Emanuel Valadez Primary Care Unavail able Helsean, Ms. Emanuel Valadez Referring Unavail able Elias II, Dr. Daniella Zuñiga Referring Unavai lable Nan, Ms. Emanuel Valadez Primary Care Unavail able Elias II, Dr. Daniella Zuñiga Attending Unavareyes Montes, Dr. Jeanine Hopson Attending Unavailabl e Nan, Ms. Emanuel Valadez Primary Care Unavail able Daniella Elias Attending Unavailable Daniella Elias Referring Unavailable Hellinger, Ms. Emanuel Valadez Primary Care Unavail able Daniella Elias Attending Unavailable Daniella Elias Referring Unavailable Helsean, Ms. Emanuel Valadez Primary Care Unavail able Jose De Jesus Ortiz MD Primary Care Provider JEANINE MONTES Referring Unavailable JOSE DE JESUS ORTIZ Primary Care Unavailable MOOKIE MONTOYA Referring Unavailable JOSE DE JESUS ORTIZ Primary Care Unavailable DANIELLA ELIAS Attending Unavailable JOSE DE JESUS ORTIZ Primary Care Unavailable DANIELLA ELIAS Attending Unavailable JOSE DE JESUS ORTIZ Primary Care Unavailable JOSE DE JESUS ORTIZ Primary Care Unavailable JOSE DE JESUS ORTIZ Primary Care Unavailable ANGELIA RUSH Referring Unavailable EMANUEL NORWOOD Primary Care Unavailable ANGELIA RUSH Attending Unavailable ANGELIA RUSH Referring Unavailable EMANUEL NORWOOD Primary Care Unavailable ANGELIA RUSH Attending Unavailable EMANUEL NORWOOD L. Primary Care Unavailable BAYISSA, JAKE ABERRA Admitting Unavail able BAYISSA, JAKE ABERRA Attending Unavail able HELLINGER, EMANUEL L. Primary Care Unavailable BAYISSA, JAKE ABERRA Admitting Unavail able BAYISSA, JAKE ABERRA Attending Unavail able HELLINGER, EMANUEL L. Primary Care Unavailable BAYISSA, JAKE ABERRA Admitting Unavail able BAYISSA, JAKE ABERRA Attending Unavail able RUSH, AJ. Attending Unavailable HELLINGER, EMANUEL L. Primary Care Unavailable RUSH, AJ. Referring Unavailable RUSH, AJ. Attending Unavailable HELLINGER, EMANUEL L. Primary Care Unavailable RUSH, AJ. Referring Unavailable HELLINGER, EMANUEL L. Primary Care Unavailable BAYISSA, JAKE ABERRA Referring Unavail able HELLINGER, EMANUEL L. Primary Care Unavailable HELLINGER, EMANUEL L. Primary Care Unavailable RUSH, AJ. Attending Unavailable RUSH, AJ. Referring Unavailable Hellinger Emanuel PEREIRA Primary Care Provider EMANUEL NORWOOD Admitting Unavailable RUSH, AJ. Attending Unavailable HELLINGER, EMANUEL LAzul Referring Unavailable HELLINGER, EMANUEL L. Primary Care Unavailable RUSH, AJ. Attending Unavailable HELLINGER, EMANUEL L. Primary Care Unavailable HELLINGER, EMANUEL L. Primary Care Unavailable BALA MCDONOUGH Attending Unavailabl SEGUN Zuniga Attending Unavailable BILLYLINGER, EMANUEL L. Primary Care Unavailable Allergies Allergy Classification Reported Allergen(s) Allergy Type Date of Onset Reaction(s) Facility Sulfonamides (antibiotic) (2 sources) Sulfonamides (Antibiotic); Translations: [Sulfa Drugs] Drug Allergy [id number] Work Phone: (12 sources) Sulfonamides (Antibiotic); Translations: [Sulfa Drugs] Allergy to drug (finding) [id number] Work Phone: (6 sources) Mafenide; Translations: [mafenide topical] Drug Allergy 4 Unknown [facility] (7 sources) Sulfonamides (Antibiotic); Translations: [SULFA (SULFONAMIDE ANTIBIOTICS)] Drug Intolerance 5 Unknown, Rash [facility] Work Phone: (2 sources) ALLERGIES NOT ON FILE; Translations: [ALLERGIES NOT ON FILE] Propensity to adverse reactions (disorder) [facility] 2 Repository Medications Current Medications Medication Drug Class(es) Dates Sig (Normalized) Sig (Original) amLODIPine 10 mg oral tablet (18 sources) Dihydropyridine Calcium Channel Franki Start: 03-11-2024 take 1 tablet by mouth once daily amLODIPine (NORVASC) 10 MG tablet Take 1 (one) tablet (10 mg total) by mouth daily . 03/11/2024 Active Start: 09-09-2021 take 1 tablet by carlos th once daily amLODIPine (Norvasc) 2.5 mg tablet Take 1 tablet (2.5 mg) by mouth once daily. 0 09/09/2021 Active Start: 09-09-2021 amLODIPine 10 mg oral tablet Dose : 10 mg = 1 tab(s), Oral, qDay, # 30 tab(s), 0 Refill(s) Start Date: 09/09/21 Status: Ordered amLODIPine Besyl ate 2.5 MG Oral Tablet Quantity: 0 Refills: 0 Ordered: 31-Aug-2020 DO Active aspirin 81 mg delayed release oral tablet (16 sources) Platelet Aggregation Inhibitor, Nonsteroidal Anti-inflammatory Drug take 1 tablet by mouth once daily aspirin 81 MG EC tablet Take 1 (one) tablet (81 mg total) by mouth daily . Active Aspirin TABS Ayush ntity: 0 Refills: 0 Ordered: 03-Apr-2020 DO Active Aspirin TABS Ref ills: 0 DO Active escitalopram 10 mg oral tablet (1 source) Serotonin Reuptake Inhibitor Start: 03-11-2024 take 1 tablet by mouth once daily escitalopram oxalate (LEXAPRO) 10 MG tablet Take 1 (one) tablet (10 mg total) by mouth daily . 03/11/2024 Active folic acid 1 mg oral tablet (13 sources) take 1 tablet by mouth once daily folic acid (FOLVITE) 1 MG tablet Take 2 (two) tablets (2,000 mcg total) by mouth daily . Active Folic Acid TABS Quantity: 0 Refills: 0 Ordered: 18-Aug-2021 DO Active 24 hr isosorbide mononitrate 30 mg extended release oral tablet (1 source) Nitrate Vasodilator Start: 06-04-2024 End: 06-04-2025 take 2 tablets by mouth once daily isosorbide mononitrate (IMDUR) 30 MG 24 hr tablet Indications: Exertional angina (HCC) Take 2 (two) tablets (60 mg total) by mouth daily . 60 tablet 11 06/04/2024 06/04/2025 Active lisinopril 40 mg oral tablet (19 sources) Angiotensin Converting Enzyme Inhibitor Start: 11-12-2020 take 1 tablet by mouth once daily lisinopril 40 mg tablet Take 1 tablet (40 mg) by mouth once daily. 0 11/12/2020 Active Lisinopril TABS Quantity: 0 Refills: 0 Ordered: 03-Apr-2020 DO Active Lisinopril TABS Refills: 0 DO Active meloxicam 15 mg oral tablet (4 sources) Nonsteroidal Anti-inflammatory Drug meloxicam (Mobic) 15 mg tablet Take by mouth. 0 Active Meloxicam TABS Q uantity: 0 Refills: 0 Ordered: 03-Apr-2020 DO Active Meloxicam TABS R efills: 0 DO Active methotrexate 2.5 mg oral tablet (18 sources) Folate Analog Metabolic Inhibitor Start: 06-22-2020 methoTREXate (TREXAL L) 2.5 MG tablet 5 tablets once a week . 06/22/2020 Active Start: 06-22-2020 methotrexate 2 .5 mg oral tablet Dose : 2.5 mg = 1 tab(s), Oral, qWeek, # 4 tab(s), 0 Refill(s) Start Date: 09/09/21 Status: Ordered Methotrexate 2.5 MG Oral Tablet Quantity: 0 Refills: 0 Ordered: 31-Aug-2020 DO Active metoprolol tartrate 25 mg oral tablet (20 sources) beta-Adrenergic Franki Start: 07-19-2024 take 1 tablet by mouth twice daily metoprolol tartrate (LOPRESSOR) 25 MG tablet Take 1 (one) tablet (25 mg total) by mouth 2 (two) times a day . 180 tablet 3 07/19/2024 Active Start: 12-02-2021 End: 07-19-2024 Metoprolol Tartrate 50 mg or al tablet Dose : 50 mg = 1 tab(s), Oral, BID, # 60 tab(s), 3 Refill(s), Pharmacy: [id number], 178, cm, 12/02/21 14:37:00 EST, Height, kg, 12/02/21 14:37:00 EST, Dosing Weight Start Date: 12/02/21 Status: Ordered take 1 tablet by carlos th every twenty-four hours metoprolol succinate XL (Toprol-XL) 50 mg 24 hr tablet Take by mouth. 0 Active Metoprolol Tartr ate TABS Quantity: 0 Refills: 0 Ordered: 03-Apr-2020 DO Active Metoprolol Tartr ate TABS Refills: 0 DO Active mv-min/folic/K1/lycopen/lute in (CENTRUM SILVER MEN ORAL) (1 source) take 50 mg by mouth once daily mv-min/folic/K1/lycopen/lutein (CENTRUM SILVER MEN ORAL) Take 50 mg by mouth once daily . Active predniSONE 10 mg oral tablet (17 sources) Start : 09-09 predniSONE 10 mg oral tablet Dose : 10 mg = 1 tab(s), Oral, Once, # 30 tab(s), 0 Refill(s) Start Date: 09/09/21 Status: Ordered predniSONE 5 MG Oral Tablet Quantity: 0 Refills: 0 Ordered: 31-Aug-2020 DO Active rosuvastatin calcium 20 mg oral tablet (19 sources) HMG-CoA Reductase Inhibitor Start: 11-12-2020 take 1 tablet by mouth once daily rosuvastatin (Crestor) 20 mg tablet Take 1 tablet (20 mg) by mouth once daily. 0 11/12/2020 Active Rosuvastatin Bijan cium TABS Quantity: 0 Refills: 0 Ordered: 03-Apr-2020 DO Active Rosuvastatin Bijan cium TABS Refills: 0 DO Active sertraline 50 mg oral tablet (1 source) Serotonin Reuptake Inhibitor Start: 02-20-2019 sertraline (ZOLOFT) 50 MG tablet Take by mouth daily . 02/20/2019 Active tamsulosin hydrochloride 0.4 mg oral capsule (14 sources) alpha-Adrenergic Franki Start: 11-27-2023 End: 01-12-2024 take 1 capsule by mouth once daily at bedtime tamsulosin (Flomax) 0.4 mg 24 hr capsule Indications: Benign prostatic hyperplasia with urinary frequency Take 1 capsule (0.4 mg) by mouth once daily at bedtime. 30 capsule 11 12/13/2023 01/12/2024 Active Start: 10-20-2021 take 1 capsule by [facility] at bedtime Tamsulosin HCl - 0.4 MG Oral Capsule TAKE 1 CAPSULE Bedtime Quantity: 30 Refills: 5 Ordered: 30-May-2023 Daniella Elias II, MD Start : 20-Oct-2021 Active ticagrelor 90 mg oral tablet (1 source) Start: 05-31-2024 End: 05-31-2025 take 1 tablet by mouth twice daily ticagrelor (BriLINTA) 90 mg Tab tablet Take 1 (one) tablet (90 mg total) by mouth 2 (two) times a day . 60 tablet 11 05/31/2024 05/31/2025 Active vit C/E/Zn/coppr/lutein/radha yudy (PRESERVISION AREDS-2 ORAL) (1 source) vit C/E/Zn/coppr/lutein/radha yudy (PRESERVISION AREDS-2 ORAL) Take by mouth once daily . Active Completed/Discontinued Medications Medication Drug Class(es) Dates Sig (Normalized) Sig (Original) ciprofloxacin 500 mg oral tablet (1 source) Quinolone Antimicrobial Start: 03-30-2020 take 1 tablet by mouth twice daily Ciprofloxacin HCl - 500 MG Oral Tablet TAKE 1 TABLET TWICE DAILY. Quantity: 6 Refills: 0 Daniella Elias II, MD Start : 30-Mar-2020 Active L-Thyroxine Sodium TABS (12 sources) L-Thyroxine Sodi um TABS Quantity: 0 Refills: 0 Ordered: 03-Apr-2020 DO Active levothyroxine sodium 0.15 mg oral tablet (7 sources) l-Thyroxine Start: 12-09-2022 Levothyroxine Sodium 150 MCG Oral Tablet Quantity: 90 Refills: 0 Ordered: 09-Dec-2022 DO Start : 09-Dec-2022 Active Start: 09-09-2021 levothyroxine 125 mcg (0.125 mg) oral tablet Dose : 125 mcg = 1 tab(s), Oral, qDay, # 90 tab(s), 2 Refill(s), Pharmacy: [id number], 178, cm, 09/09/21 10:39:00 EST, Height, kg, 09/09/21 10:39:00 EST, Dosing Weight Start Date: 09/09/21 Status: Ordered Start: 06-22-2020 levothyroxine (Synthroid, Levoxyl) 150 mcg tablet Take by mouth. 0 06/22/2020 Active L-Thyroxine Sodi um TABS Refills: 0 DO Active liothyronine sodium 0.005 mg oral tablet (3 sources) l-Triiodothyronine Start: 02-04-2021 End: 08-18-2021 Liothyronine Sodium 5 MCG Oral Tablet Quantity: 30 Refills: 0 Ordered: 04-Feb-2021 DO Start : 04-Feb-2021 End : 18-Aug-2021 Complete Multi-Vitamin Oral Tablet (12 sources) Multi-Vitamin Or al Tablet Quantity: 0 Refills: 0 Ordered: 18-Aug-2021 DO Active PreserVision AREDS TABS (12 sources) PreserVision ARE DS TABS Quantity: 0 Refills: 0 Ordered: 18-Aug-2021 DO Active Problems Active Problems Problem Classification Problem Date Documented Date Episodic/Chronic Allergic reactions (1 source) Allergy status to sulfonamides status; Translations: [Allergy status to sulfonamides] Onset: 3 Episodic Cardiac dysrhythmias (2 sources) Sinus bradycardia; Translations: [Bradycardia, unspecified] Onset: 4 07-19-2024 Episodic Coronary atherosclerosis and other heart disease (20 sources) History of myocardial infarction; Translations: [Old myocardial infarction] Onset: 6 Chronic Coronary atherosclerosis and other heart disease (2 sources) History of myocardial infarction; Translations: [Presence of aortocoronary bypass graft] Onset: 3 Episodic Diabetes mellitus without complication (2 sources) Diabetes mellitus 12-03-2021 Chronic Diabetes mellitus without complication (4 sources) Hyperglycemia; Translations: [Prediabetes] 12-02-2021 Episodic Disorders of lipid metabolism (2 sources) Pure hypercholesterolemia, unspecified; Translations: [Hyperlipidemia] Onset: 6 06-24-2016 Chronic Essential hypertension (4 sources) Hypertensive disorder; Translations: [Essential (primary) hypertension] Onset: 6 11-12-2020 Chronic Hyperplasia of prostate (20 sources) Urinary urgency due to benign prostatic hypertrophy; Translations: [Hypertrophy (benign) of prostate with urinary obstruction and other lower urinary tract symptoms (LUTS)] Onset: 3 12-13-2023 Chronic Nutritional deficiencies (2 sources) Vitamin D deficiency 11-12-2020 Chronic Other aftercare (1 source) 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; Translations: [[facility] (current) use of aspirin] Onset: 3 Episodic Other aftercare (1 source) [facility] (current) use of systemic steroids; Translations: [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)] Onset: 3 Chronic Other male genital disorders (1 source) Impotence; Translations: [Erectile dysfunction] Chronic Other male genital disorders (18 sources) Male erectile dysfunction, unspecified; Translations: [Erectile dysfunction] Onset: 4 12-13-2023 Chronic Other screening for suspected conditions (not mental disorders or infectious disease) (20 sources) Raised prostate specific antigen; Translations: [Elevated prostate specific antigen [PSA]] Onset: 2 Episodic Residual codes; unclassified (2 sources) Generally unwell 02-04-2021 Episodic Residual codes; unclassified (1 source) Family history of colonic polyps; Translations: [Family history of colonic polyps] Onset: 3 Episodic Rheumatoid arthritis and related disease (6 sources) Inflammatory polyarthropathy; Translations: [Rheumatoid arthritis] Onset: 4 Chronic Substance-related disorders (1 source) Nicotine dependence, unspecified, uncomplicated; Translations: [Nicotine dependence, unspecified, uncomplicated] Onset: 3 Chronic Thyroid disorders (2 sources) Hypothyroidism 11-12-2020 Chronic Thyroid disorders (1 source) Disorder of thyroid, unspecified; Translations: [Disorder of thyroid, unspecified] Onset: 3 Episodic Unclassified (2 sources) Long-term current use of steroid 11-12-2020 Unclassified (2 sources) abnormal stress test Onset: 4 Past or Other Problems Problem Classification Problem Date Documented Date Episodic/Chronic Biliary tract disease (1 source) Calculus of gallbladder without cholecystitis without obstruction; Translations: [Calculus of gallbladder w/o cholecystitis w/o obstruction] Onset: 06-10-2022 Episodic Genitourinary symptoms and ill-defined conditions (20 sources) Nocturia; Translations: [Nocturia] Onset: 12-08-2023 12-13-2023 Episodic Other aftercare (5 sources) Other group home (current) drug therapy; Translations: [Other group home (current) drug therapy] Onset: 06-10-2022 Episodic Other liver diseases (1 source) Abnormal levels of other serum enzymes; Translations: [Abnormal levels of other serum enzymes] Onset: 06-10-2022 Episodic Other lower respiratory disease (4 sources) Dyspnea, unspecified; Translations: [Dyspnea, unspecified] Onset: 04-17-2024 Episodic Unclassified (1 source) Onset: 12-13-2023 12-13-2023 Results Test Name Value Interpretation Reference Range Facility PCI PLANNED COMPLEX INTERVEN Amado 07-09-2024 PCI PLANNED COMPLEX INTERVENTION This is a summary report. The complete report is available in the patient's medical record. If you cannot access the medical record, please contact the sending organization for a detailed fax or copy. 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 angioplasty Successful PCI of RPL with LESVIA x 1 IVUS assessment for lesion characterization, vessel sizing, and stent optimization Elevated LVEDP Recommendations: Continue aspirin 81 mg daily indefinitely and ticagrelor for 1 year Target LDL<70 mg/dL with a high-intensity statin Optimal lifestyle habits including smoking cessation, adopting a Mediterranean diet, and regular moderate-intensity exercise (>3 hours weekly) Participation in cardiac rehabilitation Optimal BP <120/80 mm Hg Routine post cath and IV hydration Coronary Findings Diagnostic Dominance: Right Right Coronary Artery: The vessel is large. Dist RCA lesion is 100% stenosed. Culprit lesion. SAMUEL flow is 0. The lesion is type C. The lesion is calcified. The lesion was not previously treated. Right Posterior Descending Artery: RPDA filled by collaterals from RV Branch. Right Posterior Atrioventricular Artery: RPAV lesion is 70% stenosed. SAMUEL flow is 1. The lesion is dissected. Sub-intimal hematoma Graft To Dist RCA: Origin lesion is 100% stenosed. Intervention Dist RCA lesion: Atherectomy: Orbital atherectomy was performed. The catheter used was a ROTABLATOR 1.50MM ROTAPRO 2.0 ADVANCER. Atherectomy: Cutting atherectomy was performed. Supplies Used: BALLOON 2.00 X 06 WOLVERINE MR; BALLOON 3.50 X 15 WOLVERINE MR Angioplasty: Angioplasty was performed prior to stent deployment. Supplies Used: BALLOON 1.00 X 10 SAPPHIRE II PRO PTCA; BALLOON 2.50 X 30 NC EMERGE RX Stent: Drug-eluting stent was successfully placed. The stent used was a STENT 3.50 X 48 SYNERGY XD MR. Angioplasty: Angioplasty was performed following stent deployment. The balloon used was a BALLOON 4.00 X 30 NC EMERGE RX. Post-Intervention Lesion Assessment: Post-intervention SAMUEL flow is 3. There were no complications. Ultrasound (IVUS) was performed. The stent appears adequately expanded by IVUS. There is a 0% residual stenosis post intervention. RPAV lesion: Stent: Drug-eluting stent was successfully placed. The stent used was a STENT 2.50 X 20 SYNERGY XD MR. Angioplasty: Angioplasty was performed following stent deployment. The balloon used was a BALLOON 3.00 X 20 NC EMERGE RX. Post-Intervention Lesion Assessment: Post-intervention SAMUEL flow is 3. There were no complications. There is a 0% residual stenosis post intervention. Left Ventricle LV systolic pressure is normal. 123 mmHg LV end diastolic pressure is elevated. 17 mmHg Aortic Root AO: 117/51/76 mmHg HR: 53 bpm There is no significant gradient across the aortic valve. Appropriate use criteria Indication for PCI: SIHD. SIHD: new onset angina score is low. Normal [facility] POC ACTIVATED CLOTTING TIME - [facility] 07-09-2024 POC ACT KAOLIN 269 seconds [facility] Comment on above: Performed By: #### [id number] #### [address] [place], [place] [address] Jeff Olvera M.D. [id number] POC ACT KAOLIN 250 seconds [facility] Comment on above: Performed By: #### [id number] #### [address] [place], [place] [address] Jeff Olvera M.D. [id number] POC ACT KAOLIN 275 seconds Normal [facility] Comment on above: Performed By: #### [id number] #### [address] [place], [place] [address] Jeff Olvera M.D. [id number] BASIC METABOLIC PANELon 09-3 -2023 Anion gap [Moles/Vol] 12 mmol/L Normal 10-20 [facility] Comment on above: Order Comment: [facility] has implemented the eGFR calculation approach that does not have a coefficient for race that conforms to the NKF-ASN Task Force Recommendations. Performed By: #### [id number] #### [address] [place] [address] Jeff Olvera M.D. [id number] Calcium [Mass/Vol] 10.1 mg/dL Normal 8.4-10.2 [facility] Comment on above: Order Comment: [facility] has implemented the eGFR calculation approach that does not have a coefficient for race that conforms to the NKF-ASN Task Force Recommendations. Performed By: #### [id number] #### [address] [place], [place] [address] Jeff Olvera M.D. [id number] Chloride [Moles/Vol] 106 mmol/L Normal 98-108 [facility] Comment on above: Order Comment: [facility] has implemented the eGFR calculation approach that does not have a coefficient for race that conforms to the NKF-ASN Task Force Recommendations. Performed By: #### [id number] #### [address] [place] [address] Jeff Olvera M.D. [id number] Creatinine [Mass/Vol] 0.85 mg/dL Normal 0.80-1.30 [facility] Comment on above: Order Comment: [facility] has implemented the eGFR calculation approach that does not have a coefficient for race that conforms to the NKF-ASN Task Force Recommendations. Performed By: #### [id number] #### [address] [place] [address] Jeff Olvera M.D. [id number] EGFR 92 mL/min/1.73 m2 Normal >=60 [facility] Comment on above: Order Comment: [facility] has implemented the eGFR calculation approach that does not have a coefficient for race that conforms to the NKF-ASN Task Force Recommendations. Result Comment: Chloe mated GFR was calculated using the 2020 CKD-EPI creatinine equation. Performed By: #### [id number] #### [address] [place] [address] Jeff Olvera M.D. [id number] Glucose [Mass/Vol] 101 mg/dL High 65-99 [facility] Comment on above: Order Comment: [facility] has implemented the eGFR calculation approach that does not have a coefficient for race that conforms to the NKF-ASN Task Force Recommendations. Performed By: #### [id number] #### [address] [place] [address] Jeff Olvera M.D. [id number] HCO3 (Bld) [Moles/Vol] 27 mmol/L Normal 21-32 [facility] Comment on above: Order Comment: [facility] has implemented the eGFR calculation approach that does not have a coefficient for race that conforms to the NKF-ASN Task Force Recommendations. Performed By: #### [id number] #### [address] [place] [address] Jeff Olvera M.D. [id number] Potassium [Moles/Vol] 4.2 mmol/L Normal 3.5-5.1 [facility] Comment on above: Order Comment: [facility] has implemented the eGFR calculation approach that does not have a coefficient for race that conforms to the NKF-ASN Task Force Recommendations. Performed By: #### [id number] #### [address] [place] [address] Jeff Olvera M.D. [id number] Sodium [Moles/Vol] 141 mmol/L Normal 135-145 [facility] Comment on above: Order Comment: [facility] has implemented the eGFR calculation approach that does not have a coefficient for race that conforms to the NKF-ASN Task Force Recommendations. Performed By: #### [id number] #### [address] [place] [address] Jeff Olvera M.D. [id number] Urea nitrogen [Mass/Vol] 16 mg/dL Normal 8-25 [facility] Comment on above: Order Comment: [facility] has implemented the eGFR calculation approach that does not have a coefficient for race that conforms to the NKF-ASN Task Force Recommendations. Performed By: #### [id number] #### [address] [place] [address] Jeff Olvera M.D. [id number] Urea nitrogen/Creatinine [Mass ratio] 18.8 mg/mg Normal 10.0-20.0 [facility] Comment on above: Order Comment: [facility] has implemented the eGFR calculation approach that does not have a coefficient for race that conforms to the NKF-ASN Task Force Recommendations. Performed By: #### [id number] #### [address] [place] [place] [address] Jeff Olvera M.D. [id number] CBC WITH AUTO DIFFERENTIALon 06-24-2024 AUTO NRBC 0.0 % [facility] Comment on above: Performed By: #### L [id number] #### MH LAB [address] [place] [address] Jeff Olvera M.D. [id number] AUTO NRBC ABS COUNT 0.00 K/mcL Normal 0.00-0.00 [facility] Comment on above: Performed By: #### L [id number] #### MH LAB [address] [place] [id number] Jeff Olvera M.D. [id number] BASOPHILS ABSOLUTE COUNT 0.04 K/mcL Normal 0.00-0.30 [facility] Comment on above: Performed By: #### L [id number] #### MH LAB [address] [place] [address] Jeff Olvera M.D. [id number] Basophils/100 WBC (Bld) 0.8 % [facility] Comment on above: Performed By: #### L [id number] #### LAB [address] [place] [address] Jeff Olvera M.D. [id number] Eosinophils (Bld) [#/Vol] 0.13 10*3/uL Normal 0.00-0.50 [facility] Comment on above: Performed By: #### L [id number] #### LAB [address] [place] [address] Jeff Olvera M.D. [id number] Eosinophils/100 WBC (Bld) 2.7 % Normal [facility] Comment on above: Performed By: #### L [id number] #### LAB [address] [place] [address] Jeff Olvera M.D. [id number] Erythrocyte distribution width (RBC) [Ratio] 13.8 % Normal 11.6-14.8 [facility] Comment on above: Performed By: #### L [id number] #### LAB [address] [place] [address] Jeff Olvera M.D. [id number] Hematocrit (Bld) [Volume fraction] 38.4 % Low 41.0-53.0 [facility] Comment on above: Performed By: #### L [id number] #### LAB [address] [place] [address] Jeff Olvera M.D. [id number] Hemoglobin (Bld) [Mass/Vol] 12.9 g/dL Low 13.5-17.5 [facility] Comment on above: Performed By: #### L [id number] #### MH LAB [address] [place] [address] Jeff Olvera M.D. [id number] IG ABSOLUTE 0.03 K/mcL Normal 0.00-0.30 [facility] Comment on above: Performed By: #### L [id number] #### LAB [address] [place] [address] Jeff Olvera M.D. [id number] IG PERCENT 0.60 % Normal [facility] Comment on above: Result Comment: The IG parameter is the percentage of metamyelocytes, myelocytes and promyelocytes. An immature granulocyte count (IG) of 1% or more suggests the possibility of infection, an IG count of 3% is very likely related to an infection. Performed By: #### L [id number] #### LAB [address] [place] [address] Jeff Olvera M.D. [id number] Lymphocytes (Bld) [#/Vol] 1.03 10*3/uL Normal 0.90-4.00 [facility] Comment on above: Performed By: #### L [id number] #### LAB [address] [place] [address] Jeff Olvera M.D. [id number] Lymphocytes/100 WBC (Bld) 21.1 % Normal [facility] Comment on above: Performed By: #### L [id number] #### LAB [address] [place] [address] Jeff Olvera M.D. [id number] MCH (RBC) [Entitic mass] 31.9 pg Normal 26.0-34.0 [facility] Comment on above: Performed By: #### L [id number] #### LAB [address] [place] [address] Jeff Olvera M.D. [id number] MCV (RBC) [Entitic vol] 95.0 fL Normal 80.0-100.0 [facility] Comment on above: Performed By: #### L [id number] #### LAB [address] [place] [address] Jeff Olvera M.D. [id number] MEAN CORPUSCULAR HEMOGLOBIN CONC 33.6 g/dL Normal 31.0-37.0 [facility] Comment on above: Performed By: #### L [id number] #### LAB [address] [place] [address] Jeff Olvera M.D. [id number] Monocytes (Bld) [#/Vol] 0.62 10*3/uL Normal 0.30-0.90 [facility] Comment on above: Performed By: #### L [id number] #### LAB [address] [place] [address] Jeff Olvera M.D. [id number] Monocytes/100 WBC (Bld) 12.7 % Normal [facility] Comment on above: Performed By: #### L [id number] #### LAB [address] [place] [address] Jeff Olvera M.D. [id number] NEUTROPHILS ABSOLUTE COUNT 3.03 K/mcL Normal 1.70-7.00 [facility] Comment on above: Performed By: #### L [id number] #### LAB [address] [place] [address] Jeff Olvera M.D. [id number] Neutrophils/100 WBC (Bld) 62.1 % Normal [facility] Comment on above: Performed By: #### L [id number] #### LAB [address] [place] [address] Jeff Olvera M.D. [id number] Platelet mean volume (Bld) [Entitic vol] 10.5 fL Normal 9.4-12.4 [facility] Comment on above: Performed By: #### L [id number] #### LAB [address] [place] [address] Jeff Olvera M.D. [id number] Platelets (Bld) [#/Vol] 126 10*3/uL Low 150-400 [facility] Comment on above: Performed By: #### L [id number] #### MH LAB [address] [place] [address] Jeff Olvera M.D. [id number] RBC (Bld) [#/Vol] 4.04 10*6/uL Low 4.50-5.90 [facility] Comment on above: Performed By: #### L [id number] #### MH LAB [address] [place] [address] Jeff Olvera M.D. [id number] WBC (Bld) [#/Vol] 4.88 10*3/uL Normal 4.50-11.00 [facility] Comment on above: Performed By: #### L [id number] #### MH LAB [address] [place], [place] [address] Jeff Olvera M.D. 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, LAD, and RCA Widely patent grafts 2/3 with JEFFERS to LAD and SVG to OM Occluded SVG to RPDA Complex obstructive long distal RCA lesion extending into RPDA/RPL bifurcation with subtotal RPDA with R-R and L-R collaterals to RPDA Elevated LVEDP after dye load Recommendations: Continue aspirin 81 mg daily indefinitely and ticagrelor for 1 year Target LDL<70 mg/dL with a high-intensity statin Optimal lifestyle habits including smoking cessation, adopting a Mediterranean diet, and regular moderate-intensity exercise (>3 hours weekly) Participation in cardiac rehabilitation Optimal BP <120/80 mm Hg Complex PCI of distal RCA bifurcation will be scheduled. Will load him with [id number] Routine post-cath care and gentle IV hydration Coronary Findings Diagnostic Dominance: Right Left Main: The vessel is large. Ost LM lesion is 60% stenosed. SAMUEL flow is 3. The lesion is type C. The lesion is calcified. Left Anterior Descending: The vessel is moderate in size. Prox LAD lesion is 80% stenosed. SAMUEL flow is 3. The lesion is type C. The lesion is calcified. Ramus Intermedius: The vessel is moderate in size. Lateral Ramus Intermedius: The vessel is small. Left Circumflex: The vessel is moderate in size. Right Coronary Artery: The vessel is large. Dist RCA lesion is 99% stenosed with 85% stenosed side branch in RPAV. SAMUEL flow is 1. The lesion is type C. The lesion is calcified. Right Posterior Descending Artery: RPDA filled by collaterals from 3rd Sept. RPDA filled by collaterals from RV Branch. RPDA lesion is 100% stenosed. SAMUEL flow is 0. The lesion is type C. The lesion is calcified. Third Right Posterolateral Branch: 3rd RPL filled by collaterals from Ramus. JEFFERS Graft To Mid LAD: The graft was visualized by angiography and is moderate in size. The graft is angiographically normal. Vein Graft To Ramus: The graft was visualized by angiography and is moderate in size. The graft is angiographically normal. Vein Graft To RPDA: The graft was not visualized. Origin lesion is 100% stenosed. Intervention No interventions have been documented. Left Ventricle LV systolic pressure is elevated. 150 mmHg 19 mmHg Aortic Root AO: 142/55/88 mmHg HR: 53 bpm There is a mild gradient across the aortic valve. Normal [facility] PCI PLANNED COMPLEX INTERVEN TIONon 06-17-2024 PCI PLANNED COMPLEX INTERVENTION Impression: Unsuccessful [employer] PCI of distal RCA Normal LVEDP Recommendations: Continue medical therapy Increase Imdur to 60 mg daily Will bring back for second attempt [employer] PCI in 4-6 weeks Routine post-cath care and IV hydration Coronary Findings Diagnostic Dominance: Right Right Coronary Artery: The vessel is large. Dist RCA lesion is 100% stenosed. Culprit lesion. SAMUEL flow is 0. The lesion is type C. Right Posterior Descending Artery: RPDA filled by collaterals from RV Branch. RPDA lesion is 95% stenosed. Right Posterior Atrioventricular Artery: RPAV lesion is 85% stenosed. Graft To Dist RCA: The graft was not visualized. Origin lesion is 100% stenosed. Intervention Dist RCA lesion: Angioplasty: Angioplasty was performed independent of stent deployment. Supplies Used: BALLOON 1.00 X 08 SAPPHIRE II PRO OTW; BALLOON 1.20 X 08 EMERGE PUSH RX; BALLOON 2.00 X 08 NC EMERGE RX Post-Intervention Lesion Assessment: Post-intervention SAMUEL flow is 2. There were no complications. Lesion was crossed with hydrophilic tapered coronary wire. However, coronary microcatheter could not cross the lesion. Subsequent attempt to cross with a low-profile small size over the wire balloon was unsuccessful. A spiral tip microcatheter could not cross either. Balloon angioplasty was performed at the proximal portion of the lesion using 1.0, 1.25, and 2.0 mm balloon. There is a 99% residual stenosis post intervention. Left Ventricle 145 mmHg LV end diastolic pressure is normal. 13 mmHg Aortic Root There is no significant gradient across the aortic valve. Appropriate use criteria Indication for PCI: SIHD. SIHD: new onset angina score is intermediate. Normal [facility] Prostate specific Agon 06-10 Prostate specific Ag [Mass/Vol] 8.87 ng/mL High <=4.00 [facility] Comment on above: Order Comment: The F DA requires that the method used for PSA assay be reported to the physician. Values obtained with different assay methods must not be used interchangeably. This test was performed at [facility] using the Appercode PSA assay is a two-site immunoenzymatic sandwich assay. The assay is approved for measurement of prostate-specific antigen (PSA)in serum and may be used in conjunction with a digital rectal examination in men 50 years and older as an aid in detection of prostate cancer. 4-Qbqbi-bqvrwfnmf inhibitors (e.g. Proscar, Finasteride, Avodart, Dutasteride and Dencie) for the treatment of BPH have been shown to lower PSA levels by an average of 50% after 6 months of treatment. Performed By: #### 2 857-1 #### NAREN ARBOLEDA ([id number]) [facility] ([facility]) [address] [id number] POC [facility] P[facility] ACT KAOLIN 305 seconds Normal [facility] Comment on above: Performed By: #### 4 [id number] #### LAB [address] [place] [address] Jeff Olvera M.D. [id number] BASIC METABOLIC PANEL 04-26 Anion gap [Moles/Vol] 13 mmol/L Normal 10-20 [facility] Comment on above: Order Comment: [facility] has implemented the eGFR calculation approach that does not have a coefficient for race that conforms to the NKF-ASN Task Force Recommendations. Performed By: #### 4 [id number] #### POP LAB [address] [place] [address] Jeff Olvera M.D. [id number] Calcium [Mass/Vol] 10.3 mg/dL High 8.4-10.2 [facility] Comment on above: Order Comment: [facility] has implemented the eGFR calculation approach that does not have a coefficient for race that conforms to the NKF-ASN Task Force Recommendations. Performed By: #### 4 [id number] #### POP LAB [address] [place] [address] Jeff Olvera M.D. [id number] Chloride [Moles/Vol] 108 mmol/L Normal 98-108 [facility] Comment on above: Order Comment: [facility] has implemented the eGFR calculation approach that does not have a coefficient for race that conforms to the NKF-ASN Task Force Recommendations. Performed By: #### 4 [id number] #### LAB [address] [place], [place] [address] Jeff Olvera M.D. [id number] Creatinine [Mass/Vol] 0.89 mg/dL Normal 0.80-1.30 [facility] Comment on above: Order Comment: [facility] has implemented the eGFR calculation approach that does not have a coefficient for race that conforms to the NKF-ASN Task Force Recommendations. Performed By: #### 4 6124 #### LAB [address] [place] [address] Jeff Olvera M.D. [id number] EGFR 91 mL/min/1.73 m2 Normal >=60 [facility] Comment on above: Order Comment: [facility] has implemented the eGFR calculation approach that does not have a coefficient for race that conforms to the NKF-ASN Task Force Recommendations. Result Comment: Chloe mated GFR was calculated using the 2020 CKD-EPI creatinine equation. Performed By: #### 4 [id number] #### LAB [address] [place] [id number] Jeff Olvera M.D. [id number] Glucose [Mass/Vol] 105 mg/dL High 65-99 [facility] Comment on above: Order Comment: [facility] has implemented the eGFR calculation approach that does not have a coefficient for race that conforms to the NKF-ASN Task Force Recommendations. Performed By: #### 4 [id number] #### LAB [address] [place] [id number] Jeff Olvera M.D. [id number] HCO3 (Bld) [Moles/Vol] 26 mmol/L Normal 21-32 [facility] Comment on above: Order Comment: [facility] has implemented the eGFR calculation approach that does not have a coefficient for race that conforms to the NKF-ASN Task Force Recommendations. Performed By: #### 4 6124 #### LAB [address] [place] [address] Jeff Olvera M.D. [id number] Potassium [Moles/Vol] 4.5 mmol/L Normal 3.5-5.1 [facility] Comment on above: Order Comment: [facility] has implemented the eGFR calculation approach that does not have a coefficient for race that conforms to the NKF-ASN Task Force Recommendations. Performed By: #### 4 6124 #### LAB [address] [place] [address] Jeff Olvera M.D. [id number] Sodium [Moles/Vol] 142 mmol/L Normal 135-145 [facility] Comment on above: Order Comment: [facility] has implemented the eGFR calculation approach that does not have a coefficient for race that conforms to the NKF-ASN Task Force Recommendations. Performed By: #### 4 6124 #### LAB [address] [place] [address] Jeff Olvera M.D. [id number] Urea nitrogen [Mass/Vol] 23 mg/dL Normal 8-25 [facility] Comment on above: Order Comment: [facility] has implemented the eGFR calculation approach that does not have a coefficient for race that conforms to the NKF-ASN Task Force Recommendations. Performed By: #### 4 6124 #### LAB [address] [place] [address] Jeff Olvera M.D. [id number] Urea nitrogen/Creatinine [Mass ratio] 25.8 mg/mg High 10.0-20.0 [facility] Comment on above: Order Comment: [facility] has implemented the eGFR calculation approach that does not have a coefficient for race that conforms to the NKF-ASN Task Force Recommendations. Performed By: #### 4 6124 #### LAB [address] [place] [address] Jeff Olvera M.D. [id number] CBC WITH AUTO DIFFERENTIALon 05-23-2024 AUTO NRBC 0.0 % Normal [facility] Comment on above: Performed By: #### L [id number] #### LAB [address] [place] [address] Jeff Olvera M.D. [id number] AUTO NRBC ABS COUNT 0.00 K/mcL Normal 0.00-0.00 [facility] Comment on above: Performed By: #### L [id number] #### LAB [address] [place] [address] Jeff Olvera M.D. [id number] BASOPHILS ABSOLUTE COUNT 0.05 K/mcL Normal 0.00-0.30 [facility] Comment on above: Performed By: #### L [id number] #### LAB [address] [place] [address] Jeff Olvera M.D. [id number] Basophils/100 WBC (Bld) 0.8 % [facility] Comment on above: Performed By: #### L [id number] #### LAB [address] [place] [address] Jeff Olvera M.D. [id number] Eosinophils (Bld) [#/Vol] 0.18 10*3/uL Normal 0.00-0.50 [facility] Comment on above: Performed By: #### L [id number] #### LAB [address] [place] [address] Jeff Olvera M.D. [id number] Eosinophils/100 WBC (Bld) 2.8 % Normal [facility] Comment on above: Performed By: #### L [id number] #### LAB [address] [place] [address] Jeff Olvera M.D. [id number] Erythrocyte distribution width (RBC) [Ratio] 13.0 % Normal 11.6-14.8 [facility] Comment on above: Performed By: #### L [id number] #### LAB [address] [place] [address] Jeff Olvera M.D. [id number] Hematocrit (Bld) [Volume fraction] 38.5 % Low 41.0-53.0 [facility] Comment on above: Performed By: #### L [id number] #### LAB [address] [address] Jeff Olvera M.D. [id number] Hemoglobin (Bld) [Mass/Vol] 13.0 g/dL Low 13.5-17.5 [facility] Comment on above: Performed By: #### L [id number] #### LAB [address] [address] Jeff Olvera M.D. [id number] IG ABSOLUTE 0.04 K/mcL Normal 0.00-0.30 [facility] Comment on above: Performed By: #### L [id number] #### LAB [address] [address] Jeff Olvera M.D. [id number] IG PERCENT 0.60 % Normal [facility] Comment on above: Result Comment: The IG parameter is the percentage of metamyelocytes, myelocytes and promyelocytes. An immature granulocyte count (IG) of 1% or more suggests the possibility of infection, an IG count of 3% is very likely related to an infection. Performed By: #### L [id number] #### LAB [address] [address] Jeff Olvera M.D. [id number] Lymphocytes (Bld) [#/Vol] 1.27 10*3/uL Normal 0.90-4.00 [facility] Comment on above: Performed By: #### L [id number] #### LAB [address] [address] Jeff Olvera M.D. [id number] Lymphocytes/100 WBC (Bld) 20.0 % Normal [facility] Comment on above: Performed By: #### L [id number] #### LAB [address] [place] [address] Jeff Olvera M.D. [id number] MCH (RBC) [Entitic mass] 31.9 pg Normal 26.0-34.0 [facility] Comment on above: Performed By: #### L [id number] #### LAB [address] [address] Jeff Olvera M.D. [id number] MCV (RBC) [Entitic vol] 94.6 fL Normal 80.0-100.0 [facility] Comment on above: Performed By: #### L [id number] #### LAB [address] [address] Jeff Olvera M.D. [id number] MEAN CORPUSCULAR HEMOGLOBIN CONC 33.8 g/dL Normal 31.0-37.0 [facility] Comment on above: Performed By: #### L [id number] #### LAB [address] [address] Jeff Olvera M.D. [id number] Monocytes (Bld) [#/Vol] 0.57 10*3/uL Normal 0.30-0.90 [facility] Comment on above: Performed By: #### L [id number] #### LAB [address] [address] Jeff Olvera M.D. [id number] Monocytes/100 WBC (Bld) 9.0 % Normal [facility] Comment on above: Performed By: #### L [id number] #### LAB [address] [address] Jeff Olvera M.D. [id number] NEUTROPHILS ABSOLUTE COUNT 4.23 K/mcL Normal 1.70-7.00 [facility] Comment on above: Performed By: #### L [id number] #### LAB [address] [address] Jeff Olvera M.D. [id number] Neutrophils/100 WBC (Bld) 66.8 % Normal [facility] Comment on above: Performed By: #### L [id number] #### LAB [address] [place] [address] Jeff Olvera M.D. [id number] Platelet mean volume (Bld) [Entitic vol] 10.6 fL Normal 9.4-12.4 [facility] Comment on above: Performed By: #### L [id number] #### MH LAB [address] [place], [place] [address] Jeff Olvera M.D. [id number] Platelets (Bld) [#/Vol] 142 10*3/uL Low 150-400 [facility] Comment on above: Performed By: #### L [id number] #### MH LAB [address] [place], [place] [address] Jeff Olvera M.D. [id number] RBC (Bld) [#/Vol] 4.07 10*6/uL Low 4.50-5.90 [facility] Comment on above: Performed By: #### L [id number] #### MH LAB [address] [place], [place] [address] Jeff Olvera M.D. [id number] WBC (Bld) [#/Vol] 6.34 10*3/uL Normal 4.50-11.00 [facility] Comment on above: Performed By: #### L [id number] #### LAB [address] [address] Jeff Olvera M.D. [id number] ECHOCARDIOGRAM COMPLETE W CO NTRASTon 05-08-2024 ECHOCARDIOGRAM COMPLETE W CONTRAST Patient Info Name: TYRA MADDOX Age: 74 years : 1950 Gender: Male Ht: 178 cm Wt: 86 kg BSA: 2.08 m2 HR: 54 bpm Exam Date: 05/08/2024 6:42 AM Patient Status: Recurring patient Bufferer: Jeanna Matias, RT(N), IP TECHNOLOGY TRANSACTIONS ATTORNEY, RCS Exam Type: ECHOCARDIOGRAM COMPLETE W CONTRAST Study Info Indications - Chest pain - Dyspnea Referring Physician: Emanuel Norwood [employer]; [id number] BMI: 27.26 kg/m2 Summary 1. 1ml of Definity IV contrast was used to enhance endocardial definition. 2. Normal LV chamber size. Systolic function is normal with no regional wall motion abnormalities. Estimated ejection fraction of 55 to 60%. 3. Right ventricular chamber dimension is enlarged. Right ventricular systolic function is normal. 4. There is biatrial enlargement. 5. There is no hemodynamically significant valve disease. 6. There is pulmonary hypertension, estimated right ventricle systolic pressure is 44 mmHg. History/Risk Factors Hypertension: Yes Dyslipidemia: Yes Coronary Artery Disease (CAD) Yes History/Risk Factors Patient has prior CABG. Prior Interventions CABG: Yes Left Ventricle Normal LV chamber size. Systolic function is normal with no regional wall motion abnormalities. Estimated ejection fraction of 55 to 60%. The left ventricular diastolic function is indeterminate. Normal left ventricular mass. Right Ventricle Right ventricular chamber dimension is enlarged. Right ventricular systolic function is normal. Left Atria Left atrial chamber is severely enlarged with a left atrial volume index of 58 ml/m2 by BP MOD. Right Atria Right atrial chamber dimension is enlarged. Aortic Valve The aortic valve is trileaflet. There is mild aortic valve sclerosis. There is no aortic valve stenosis. There is no aortic valve regurgitation. Pulmonic Valve The pulmonic valve is not well visualized. There is no pulmonic valve stenosis. There is no pulmonic regurgitation. Mitral Valve The mitral valve has normal leaflets. There is no mitral valve stenosis. There is trace mitral valve regurgitation. Tricuspid Valve The tricuspid valve leaflets are normal. There is redundant chordae. There is no significant tricuspid valve stenosis. There is trace tricuspid valve regurgitation. There is pulmonary hypertension, estimated right ventricle systolic pressure is 44 mmHg. Pericardium/Pleural There is no pericardial effusion. Inferior Vena Cava Dilated inferior vena cava with >50% collapse upon inspiration consistent with normal right atrial pressure. Aorta The aortic measurements are indexed to age and body surface area. The aortic root is normal measuring 3.1 cm with an index of 1.5 cm/m2. The proximal ascending aorta is normal measuring 3.5 cm with an index of 1.7 cm/m2. Wall Motion Scoring Wall Motion Scoring Index: 1.00 Left Ventricular Outflow Tract ---- Name Value Normal ---- LVOT 2D ---- LVOT Diameter 2.4 cm LVOT Doppler ---- LVOT Peak Velocity 0.7 m/s LVOT Peak Gradient 2 mmHg LVOT Mean Gradient 1 mmHg LVOT VTI 19 cm LVOT VTI/AV VTI Ratio 0.9 LVOT Stroke Volume 84 ml LVOT Stroke Index 40.62 ml/m2 Pulmonic Valve ---- Name Value Normal ---- PV 2D ---- RVOT Diameter (2D) 3.4 cm 1.7-2.7 RVOT Doppler ---- RVOT Peak Velocity 76 cm/s RVOT Peak Gradient 2 mmHg RVOT Mean Gradient 1 mmHg RVOT VTI 18 cm PV Doppler ---- PV Peak Velocity 1.09 m/s PV Peak Gradient 5 mmHg PV Mean Gradient 2 mmHg PV VTI 26 cm PV Area (Cont Eq VTI) 6.4 cm2 PV Area Index (Cont Eq VTI) 3.06 cm2/m2 PV Area (Cont Eq Enmanuel) 6.3 cm2 PV Area Index (Cont Eq Enmanuel) 3.04 cm2/m2 Mitral Valve ---- Name Value Normal ---- MV Doppler ---- MV Peak Velocity 0.74 m/s MV Peak Gradient 2 mmHg MV Mean Gradient 1 mmHg MV VTI 24 cm MV Decel [place] 258 cm/s2 MV PHT 87 ms MV Area (PHT) 2.5 cm2 4.0-5.0 MV Area (Cont Eq VTI) 3.5 cm2 MV Area Index (Cont Eq VTI) 1.68 cm2/m2 MV DVI 1.31 MV Diastolic Function ---- MV E Peak Velocity 0.78 m/s MV A Pe (more content not included)... Normal [facility] MYOCARDIAL PERFUSION MULT I SPECTon 05-08-2024 [place] MYOCARDIAL PERFUSION MULTI SPECT Patient Info Name: TYRA MADDOX Age: 74 years : 1950 Gender: Male Ht: 178 cm Wt: 86 kg BSA: 2.08 m2 HR: 52 bpm BP: 145 / 53 mmHg Exam Date: 05/08/2024 8:30 AM Patient Status: Outpatient Inspecting Machine Adjuster: Jeanna Matias, RT(N), IP TECHNOLOGY TRANSACTIONS ATTORNEY, [facility] Exam Type: [place] MYOCARDIAL PERFUSION MULTI SPECT Study Info Indications - Exertional angina; dypsnea Nuclear Physician: Eduardo Garza MD Referring Physician: KELLI NORWOOD; [id number] Primary Nurse: Renee Hdez RN Secondary Nurse: Tala Davies RN Supervising Stress Physician: Eduardo Garza MD BMI: 27.20 kg/m2 Summary 1. Overall this is an abnormal pharmacologic stress SPECT myocardial perfusion imaging study with evidence of prior inferior/inferolateral infarct with small area of stew-infarct ischemia as below. 2. No abnormal ST/T wave changes with injection of lexiscan. 3. There is a medium sized, mostly mild to moderate intensity partially reversible defect of the basal inferior and inferolateral, mid inferior and inferolateral segments. Defect persists on upright imaging. 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 4. Overall left ventricular systolic function was normal with hypokinesis of the septal wall likely related to prior open heart surgery. Gated SPECT imaging reveals normal myocardial wall thickening. Post stress left ventricular ejection fraction is normal, 73 %. Resting left ventricular ejection fraction is normal, 69 %. Left ventricular cavity size is normal. 5. Overall intermediate-risk study based on SCAI criteria (1-3% predicted annual cardiac mortality). History/Risk Factors Hypertension: Yes Dyslipidemia: Yes Myocardial Infarction (OK): Yes Obesity: No Coronary Artery Disease (CAD) Yes Diabetes Mellitus: No COPD: No Tobacco Use: Former Family History: Coronary Artery Disease Asthma: NO Caffeine in Last 24 Hours: No Seizure Disorder: No Prior Interventions Pacemaker: No PCI: No CABG: Yes ICD: No Radiopharmaceutical: Tc-99m Tetrofosmin Administration Site: IV - left antecubital Administered By: Jeanna Matias RT(N), IP TECHNOLOGY TRANSACTIONS ATTORNEY, RCS Camera Used: [employer] D-SPECT Radiopharmaceutical: Tc-99m Tetrofosmin Administration Site: IV - left antecubital Administered By: Jeanna Matias RT(N), THAD, RCS Camera Used: [employer] D-SPECT Image Protocol Protocol: Stress/Rest 1 Day Rest Radiopharmaceutical Dose: 18.2 mCi Imaging Date AND Time: 05/08/2024 9:15 AM Patient Position: supine Stress Radiopharmaceutical Dose: 6.5 mCi Imaging Date AND Time: 05/08/2024 8:45 AM Patient Position: upright and supine Injection to Imaging Time: 15 min Injection to Imaging Time: 30 min Total Radiation Dose: 5.5 mSv Injection Date AND Time: 05/08/2024 9:02 AM Injection Date AND Time: 05/08/2024 8:15 AM Procedure(s): Gated SPECT images acquired upright and supine post Tetrofosmin injection at peak stress. Gated SPECT images acquired supine post Tetrofosmin injection at rest. [facility] QGS/QPS application was utilized for processing and interpretation. SPECT Results Perfusion Findings There is a medium sized, mostly mild to moderate intensity partially reversible defect of the basal inferior and inferolateral, mid inferior and inferolateral segments. Defect persists on upright imaging. 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 The stress/rest left ventricular cavity ratio (Transient Ischemic Dilatation ratio) = 1.08. Summed Difference Score: 4 Summed Stress Score: 8 Summed Rest Score: 4 Perfusion Quantitative Results Functional Results ---- Name Value Normal ---- Stress ---- Stress LV Ejection Fraction 73 % 55-70 Stress LV End Diastolic Volume Index 40.60 ml/m2 Stress LV End Systolic Volume Index 10.80 ml/m2 Nuclear Stress Myocardial Mass 119.00 g Stress LV End Diastolic Volume 76.00 ml Stress LV End Systolic Volume 21.00 ml Transient Ischemic Dilatation 1.08 Functional Results ---- Name Value Normal ---- Rest ---- Resting LV Ejection Fraction 69 % 55-70 Resting LV End Diastolic Volume Index 43.60 ml/m2 Resting LV End Systolic Volume Index 8.30 ml/m2 Nuclear Rest Myocardial Mass 133.00 g Resting LV End Diastolic Volume 73.00 ml Resting LV End Systolic (more content not included)... Normal [facility] Comment on above: Order Comment: NUVIA CAN PLEASE - decreased exercise tolerance due to arthritis.Injury/Trauma or Illness?:Illness/OtherHow long have you had these symptoms (acute/chronic)?:UnknownReason for exam?:ashd, doeType of Exam?:UnknownAdditional signs and symptoms?:ashd, mandujano CBC W Auto Differential pane l (Bld)on 12-08-2023 Basophils (Bld) [#/Vol] 0.04 x10*3/uL Normal 0.00-0.10 [facility] Comment on above: Performed By: #### 5 7021-8 #### NAREN ARBOLEDA ([id number]) [facility] ([facility]) [address] [place] [address] 88015 Basophils/100 WBC (Bld) 0.7 % Normal 0.0-2.0 [facility] Comment on above: Performed By: #### 5 7021-8 #### NAREN ARBOLEDA ([id number]) [facility] ([facility]) [address] [place] [address] 21305 Eosinophils (Bld) [#/Vol] 0.15 x10*3/uL Normal 0.00-0.40 [facility] Comment on above: Performed By: #### 5 7021-8 #### NAREN ARBOLEDA ([id number]) [facility] ([facility]) [address] [place] [address] 02138 Eosinophils/100 WBC (Bld) 2.5 % Normal 0.0-6.0 [facility] Comment on above: Performed By: #### 5 7021-8 #### NAREN ARBOLEDA ([id number]) [facility] ([facility]) [address] [place] [address] 77058 Erythrocyte distribution width (RBC) [Ratio] 12.9 % Normal 11.5-14.5 [facility] Comment on above: Performed By: #### 5 7021-8 #### NAREN ARBOLEDA ([id number]) [facility] ([facility]) [address] [place] [address] 31840 Hematocrit (Bld) [Volume fraction] 44.9 % Normal 41.0-52.0 [facility] Comment on above: Performed By: #### 5 7021-8 #### NAREN ARBOLEDA ([id number]) [facility] ([facility]) [address] [place] [address] 79164 Hemoglobin (Bld) [Mass/Vol] 15.0 g/dL Normal 13.5-17.5 [facility] Comment on above: Performed By: #### 5 7021-8 #### NAREN ARBOLEDA ([id number]) [facility] ([facility]) [address] [place] [address] 67450 Immature granulocytes (Bld) [#/Vol] 0.06 x10*3/uL Normal 0.00-0.50 [facility] Comment on above: Performed By: #### 5 7021-8 #### NAREN ARBOLEDA ([id number]) [facility] ([facility]) [address] [place] [address] 32013 Immature granulocytes/100 WBC (Bld) 1.0 % High 0.0-0.9 [facility] Comment on above: Result Comment: Keri ture Granulocyte Count (IG) includes promyelocytes, myelocytes and metamyelocytes but does not include bands. Percent differential counts (%) should be interpreted in the context of the absolute cell counts (cells/UL). Performed By: #### 5 7021-8 #### NAREN ARBOLEDA ([id number]) [facility] ([facility]) [address] [place] [address] 95967 Lymphocytes (Bld) [#/Vol] 1.23 x10*3/uL Normal 0.80-3.00 [facility] Comment on above: Performed By: #### 5 7021-8 #### NAREN ARBOLEDA ([id number]) [facility] ([facility]) [address] [place] [address] 87066 Lymphocytes/100 WBC (Bld) 20.5 % Normal 13.0-44.0 [facility] Comment on above: Performed By: #### 5 7021-8 #### NAREN ARBOLEDA ([id number]) [facility] ([facility]) [address] [place] [address] 61092 MCH (RBC) [Entitic mass] 31.6 pg Normal 26.0-34.0 [facility] Comment on above: Performed By: #### 5 7021-8 #### NAREN ARBOLEDA ([id number]) [facility] ([facility]) [address] [place] [address] 37345 MCHC (RBC) [Mass/Vol] 33.4 g/dL Normal 32.0-36.0 [facility] Comment on above: Performed By: #### 5 7021-8 #### NAREN ARBOLEDA ([id number]) [facility] ([facility]) [address] [place] [address] MCV (RBC) [Entitic vol] 95 fL Normal 80-100 [facility] Comment on above: Performed By: #### 5 7021-8 #### NAREN ARBOLEDA ([id number]) [facility] ([facility]) [address] [place], [place] [id number] Monocytes (Bld) [#/Vol] 0.66 x10*3/uL Normal 0.05-0.80 [facility] Comment on above: Performed By: #### 5 7021-8 #### NAREN ARBOLEDA ([id number]) [facility] ([facility]) [address] [place] [address] Monocytes/100 WBC (Bld) 11.0 % Normal 2.0-10.0 [facility] Comment on above: Performed By: #### 5 7021-8 #### NAREN ARBOLEDA ([id number]) [facility] ([facility]) [address] [place] [address] 49727 Neutrophils (Bld) [#/Vol] 3.87 x10*3/uL Normal 1.60-5.50 [facility] Comment on above: Result Comment: Perc ent differential counts (%) should be interpreted in the context of the absolute cell counts (cells/uL). Performed By: #### 5 7021-8 #### NAREN ARBOLEDA ([id number]) [facility] ([facility]) [address] [place] [address] Neutrophils/100 WBC (Bld) 64.3 % Normal 40.0-80.0 [facility] Comment on above: Performed By: #### 5 7021-8 #### NAREN ARBOLEDA ([id number]) [facility] ([facility]) [address] [place] [address] 69740 Nucleated RBC/100 WBC (Bld) [Ratio] 0.0 /100 WBCs Normal 0.0-0.0 [facility] Comment on above: Performed By: #### 5 7021-8 #### NAREN ARBOLEDA ([id number]) [facility] ([facility]) [address] [place] [address] 81903 Platelets (Bld) [#/Vol] 152 x10*3/uL Normal 150-450 [facility] Comment on above: Performed By: #### 5 7021-8 #### NAREN ARBOLEDA ([id number]) [facility] ([facility]) [address] [place] [address] 80222 RBC (Bld) [#/Vol] 4.74 x10*6/uL Normal 4.50-5.90 [facility] Comment on above: Performed By: #### 5 7021-8 #### NAREN ARBOLEDA ([id number]) [facility] ([facility]) [address] [place] [address] 49903 WBC (Bld) [#/Vol] 6.0 x10*3/uL Normal 4.4-11.3 [facility] Comment on above: Performed By: #### 5 7021-8 #### NAREN ARBOLEDA ([id number]) [facility] ([facility]) [address] [place] [address] 46057 Comprehensive metabolic 2000 panelon 12-08-2023 Albumin BCP dye [Mass/Vol] 4.3 g/dL Normal 3.4-5.0 [facility] Comment on above: Performed By: #### 2 4323-8 #### NAREN ARBOLEDA ([id number]) [facility] ([facility]) [address] [place] [address] 99846 ALP [Catalytic activity/Vol] 109 U/L Normal 33-136 [facility] Comment on above: Performed By: #### 2 4323-8 #### NAREN ARBOLEDA ([id number]) [facility] ([facility]) [facility] [place] [address] ALT With P-5'-P [Catalytic activity/Vol] 24 U/L Normal 10-52 [facility] Comment on above: Result Comment: Lucia ents treated with Sulfasalazine may generate falsely decreased results for ALT. Performed By: #### 2 4323-8 #### NAREN ARBOLEDA ([id number]) [facility] ([facility]) [address] [place] [address] Anion gap [Moles/Vol] 7 mmol/L Low 10-20 [facility] Comment on above: Performed By: #### 2 4322-8 #### NAREN ARBOLEDA ([id number]) [facility] ([facility]) [address] [place] [address] 25061 AST With P-5'-P [Catalytic activity/Vol] 21 U/L Normal 9-39 [facility] Comment on above: Performed By: #### 2 4322-8 #### NAREN ARBOLEDA ([id number]) [facility] ([facility]) [address] [place] [address] 65480 Bilirubin [Mass/Vol] 0.8 mg/dL Normal 0.0-1.2 [facility] Comment on above: Performed By: #### 2 4322-8 #### NAREN ARBOLEDA ([id number]) [facility] ([facility]) [address] [place] [address] 63388 Calcium [Mass/Vol] 10.3 mg/dL Normal 8.6-10.3 [facility] Comment on above: Performed By: #### 2 4322-8 #### NAREN ARBOLEDA ([id number]) [facility] ([facility]) [address] [place] [address] 55951 Chloride [Moles/Vol] 106 mmol/L Normal 98-107 [facility] Comment on above: Performed By: #### 2 3-8 #### NAREN ARBOLEDA ([id number]) [facility] ([facility]) [facility] [place] [address] CO2 [Moles/Vol] 32 mmol/L Normal 21-32 [facility] Comment on above: Performed By: #### 2 4323-8 #### NAREN ARBOLEDA ([id number]) [facility] ([facility]) [address] [place] [address] 09065 Creatinine [Mass/Vol] 0.84 mg/dL Normal 0.50-1.30 [facility] Comment on above: Performed By: #### 2 4323-8 #### NAREN ARBOLEDA ([id number]) [facility] ([facility]) [address] [place] [address] 81955 GFR/1.73 sq M.predicted MDRD (S/P/Bld) [Vol rate/Area] mL/min/{1.73_m2} Normal >60 [facility] Comment on above: Result Comment: Calc ulations of estimated GFR are performed using the 2020 CKD-EPI Study Refit equation without the race variable for the IDMS-Traceable creatinine methods. https://jasn.asnjournals.org/content//ASN.101163 9145 Performed By: #### 2 4323-8 #### NAREN ARBOLEDA ([id number]) [facility] ([facility]) [address] [place] [address] 46001 Glucose [Mass/Vol] 168 mg/dL High 74-99 [facility] Comment on above: Performed By: #### 2 4323-8 #### NAREN ARBOLEDA ([id number]) [facility] ([facility]) [address] [place] [address] 15596 Potassium [Moles/Vol] 4.0 mmol/L Normal 3.5-5.3 [facility] Comment on above: Performed By: #### 2 4323-8 #### NAREN ARBOLEDA ([id number]) [facility] ([facility]) [address] [place] [address] 97392 Protein [Mass/Vol] 5.9 g/dL Low 6.4-8.2 [facility] Comment on above: Performed By: #### 2 4323-8 #### NAREN ARBOLEDA ([id number]) [facility] ([facility]) [address] [place] [address] 24578 Sodium [Moles/Vol] 141 mmol/L Normal 136-145 [facility] Comment on above: Performed By: #### 2 4323-8 #### NAREN ARBOLEDA ([id number]) [facility] ([facility]) [address] [place] [address] 21169 Urea nitrogen [Mass/Vol] 16 mg/dL Normal 6-23 [facility] Comment on above: Performed By: #### 2 4323-8 #### NAREN ARBOLEDA ([id number]) [facility] ([facility]) [address] [place] [address] Prostate specific Agon 12-07 Prostate specific Ag [Mass/Vol] 11.08 ng/mL High <=4.00 [facility] Comment on above: Order Comment: The DA requires that the method used for PSA assay be reported to the physician. Values obtained with different assay methods must not be used interchangeably. This test was performed at [facility] using the Appercode PSA assay is a two-site immunoenzymatic sandwich assay. The assay is approved for measurement of prostate-specific antigen (PSA)in serum and may be used in conjunction with a digital rectal examination in men 50 years and older as an aid in detection of prostate cancer. 8-Isemc-cjnvsnbsk inhibitors (e.g. Proscar, Finasteride, Avodart, Dutasteride and Denice) for the treatment of BPH have been shown to lower PSA levels by an average of 50% after 6 months of treatment. Performed By: #### 2 857-1 #### NAREN ARBOLEDA ([id number]) [facility] ([facility]) [address] [place] [address] 47530 WRIST LEFT COMPLETEon 2023 WRIST LEFT COMPLETE EXAMINATION: WRIST LEFT COMPLETE HISTORY: Closed fracture of distal end of left ulna COMPARISON: Left wrist x-ray 07/28/2023 and 09/14/2023. FINDINGS: 3 views of the left wrist are submitted. Oblique, longitudinally oriented spiral fracture of the distal radial metadiaphysis with interval healing and developing bony callus formation. The carpal rows are intact. The distal radius and ulna are within normal limits. The metacarpals are also unremarkable. Persistent mild soft tissue swelling. IMPRESSION: 1. Interval healing of distal radial metaphyseal oblique longitudinally oriented spiral fracture. 2. No new osseous abnormality. 3. Persistent soft tissue swelling. Normal [facility] DEXA BONE DENSITYon 08-28-20 DEXA BONE DENSITY Interpreted By: Rory Buchanan, STUDY: DEXA BONE XRMEUKE91/4/2023 8:12 am INDICATION: Signs/Symptoms:HYPERPA RATHYROIDISM E21.3. The patient is a 73 y/o year old M. COMPARISON: 08/24/2021 ACCESSION NUMBER(S): [id number] ORDERING CLINICIAN: MOOKIE MONTOYA TECHNIQUE: DEXA BONE DENSITY FINDINGS: SPINE L1-L4 Bone Mineral Density: 1.394 T-Score 1.6 Z-Score 1.8 Bone Mineral Density change vs baseline: Not reported Bone Mineral Density change vs previous: Not reported LEFT FEMUR -TOTAL Bone Mineral Density: 0.804 T-Score -1.6 Z-Score -1.3 Bone Mineral Density change vs baseline: Not reported Bone Mineral Density change vs previous: Not reported LEFT FEMUR -NECK Bone Mineral Density: 0.793 T-Score -1.8 Z-Score -0.8 RIGHT FEMUR -TOTAL Bone Mineral Density: 0.772 T-Score -1.9 Z-Score -1.5 Bone Mineral Density change vs baseline: Not reported Bone Mineral Density change vs previous: Not reported RIGHT FEMUR -NECK Bone Mineral Density: 0.772 T-Score -1.9 Z-Score -1.0 RIGHT FOREARM Bone Mineral Density: 0.554 T-Score -2.0 Z-Score -2.1 UD Bone Mineral Density: 0.452 T-Score -0.2 Z-Score -0.5 MID Bone Mineral Density: Not reported T-Score Not reported Z-Score Not reported 1/3 Bone Mineral Density: 0.744 T-Score -1.5 Z-Score -1.6 Bone Mineral Density change vs baseline: Not reported Bone Mineral Density change vs previous: Not reported World Health Organization (WHO) criteria for post-menopausal, Women: Normal: T-score at or above -1 SD Osteopenia: T-score between -1 and -2.5 SD Osteoporosis: T-score at or below -2.5 SD 10-year Fracture Risk: Major Osteoporotic Fracture 20.1 Hip Fracture 6.9 Note: If no FRAX score is reported, it is because: Some T-score for Spine Total or Hip Total or Femoral Neck at or below -2.5 Vertebral Deformity Assessment: Exam Date - 08/28/2023 8:12 am Vertebral Level Impression T4 None T5 None T6 None T7 None T8 None T9 None T10 None T11 None T12 None L1 None L2 None L3 None L4 None A spine fracture indicates 5X risk for subsequent spine fracture and 2X risk for subsequent hip fracture. This exam was performed at [facility] on a [employer] Advanced Dexa Unit. IMPRESSION: DEXA: According to World Health Organization criteria, classification is low bone mass (osteopenia) Followup recommended in two years or sooner as clinically warranted. VFA: NO VERTEBRAL FRACTURES WERE SEEN. All images and detailed analysis are available on the Radiology PACS. MACRO: None Signed by: Rory Buchanan 08/28/2023 11:25 AM Dictation workstation: [id number] [facility] FOREARM LEFTon 07-28-2023 FOREARM LEFT EXAM: WRIST LEFT COMPLETE, FOREARM LEFT HISTORY: Traumatic AND/OR non-traumatic injury COMPARISON: None. FINDINGS/IMPRESSION: 1. Distal ulnar metadiaphyseal fracture. 2. Oblique/spiral fracture line. 2. No intra-articular extension. 3. Remainder normal. Normal [facility] WRIST LEFT COMPLETEon 2022 WRIST LEFT COMPLETE EXAM: WRIST LEFT COMPLETE, FOREARM LEFT HISTORY: Traumatic AND/OR non-traumatic injury COMPARISON: None. FINDINGS/IMPRESSION: 1. Distal ulnar metadiaphyseal fracture. 2. Oblique/spiral fracture line. 2. No intra-articular extension. 3. Remainder normal. Normal [facility] US Liver limitedon No focal hepatic abnormality demonstrated. Cholelithiasis. No gallbladder wall thickening. No biliary dilation. Sub visualization of the pancreas. MACRO: None. Signed by: Balta Esposito 07/21/2023 12:15 PM Dictation workstation: [id number] [facility] Interpreted By: Balta Esposito, STUDY: US ABDOMEN LIMITED LIVER; 07/20/2023 8:01 am INDICATION: Signs/Symptoms:ELEVATE D LIVER ENZYMES. COMPARISON: 06/10/2022. ACCESSION NUMBER(S): [id number] ORDERING CLINICIAN: JEANINE MONTES TECHNIQUE: Real-time sonographic evaluation of the right upper quadrant was performed. FINDINGS: LIVER: There were some scanning limitations of the liver related to limited acoustic windows with intercostal scanning as well as some obscuration from bowel gas. The liver is homogeneous in echotexture. No focal hepatic lesion is identified. Liver measures 16 cm in sagittal dimension. GALLBLADDER: Gallbladder contains multiple hyperechoic gallstones in the dependent portion. Gallbladder wall is not thickened measuring 2 mm. Sonographic Flores sign is negative. BILIARY TREE: Visualized portion of the common bile duct is not dilated measuring 4 mm in diameter. PANCREAS: The pancreas is poorly visualized due to overlying bowel gas. RIGHT KIDNEY: Right kidney measures 10.8cm in length. No right hydronephrosis is seen. [facility] Balta Esposito MD - 07/21/2023 Interpreted By: Balta Esposito, STUDY: US ABDOMEN LIMITED LIVER; 07/20/2023 8:01 am INDICATION: Signs/Symptoms:ELEVATE D LIVER ENZYMES. COMPARISON: 06/10/2022. ACCESSION NUMBER(S): [id number] ORDERING CLINICIAN: JEANINE MONTES TECHNIQUE: Real-time sonographic evaluation of the right upper quadrant was performed. FINDINGS: LIVER: There were some scanning limitations of the liver related to limited acoustic windows with intercostal scanning as well as some obscuration from bowel gas. The liver is homogeneous in echotexture. No focal hepatic lesion is identified. Liver measures 16 cm in sagittal dimension. GALLBLADDER: Gallbladder contains multiple hyperechoic gallstones in the dependent portion. Gallbladder wall is not thickened measuring 2 mm. Sonographic Flores sign is negative. BILIARY TREE: Visualized portion of the common bile duct is not dilated measuring 4 mm in diameter. PANCREAS: The pancreas is poorly visualized due to overlying bowel gas. RIGHT KIDNEY: Right kidney measures 10.8cm in length. No right hydronephrosis is seen. IMPRESSION: No focal hepatic abnormality demonstrated. Cholelithiasis. No gallbladder wall thickening. No biliary dilation. Sub visualization of the pancreas. MACRO: None. Signed by: Balta Esposito 07/21/2023 12:15 PM Dictation workstation: [id number] [facility] Work Phone: US Liver limitedOrdered By: Balta Esposito on 07-21-2023 [facility] Work Phone: US ABDOMEN LIMITED LIVERon 1 US ABDOMEN LIMITED LIVER Interpreted By: Balta Esposito, STUDY: US ABDOMEN LIMITED LIVER; 07/20/2023 8:01 am INDICATION: Signs/Symptoms:ELEVATE D LIVER ENZYMES. COMPARISON: 06/10/2022. ACCESSION NUMBER(S): [id number] ORDERING CLINICIAN: JEANINE MONTES TECHNIQUE: Real-time sonographic evaluation of the right upper quadrant was performed. FINDINGS: LIVER: There were some scanning limitations of the liver related to limited acoustic windows with intercostal scanning as well as some obscuration from bowel gas. The liver is homogeneous in echotexture. No focal hepatic lesion is identified. Liver measures 16 cm in sagittal dimension. GALLBLADDER: Gallbladder contains multiple hyperechoic gallstones in the dependent portion. Gallbladder wall is not thickened measuring 2 mm. Sonographic Flores sign is negative. BILIARY TREE: Visualized portion of the common bile duct is not dilated measuring 4 mm in diameter. PANCREAS: The pancreas is poorly visualized due to overlying bowel gas. RIGHT KIDNEY: Right kidney measures 10.8cm in length. No right hydronephrosis is seen. IMPRESSION: No focal hepatic abnormality demonstrated. Cholelithiasis. No gallbladder wall thickening. No biliary dilation. Sub visualization of the pancreas. MACRO: None. Signed by: Balta Esposito 07/21/2023 12:15 PM Dictation workstation: [id number] [facility] US Liver limitedon 3 Radiology Study observation (narrative) [facility] Work Phone: Office Visit (Urology)on Follow-up visit Diagnoses/Problems Assessed Benign prostatic hyperplasia (BPH) with urinary urgency (600.01,788.63) (N40.1,R39.15) Elevated PSA (790.93) (R97.20) Erectile dysfunction (607.84) (N52.9) Nocturia (788.43) (R35.1) Former smoker (V15.82) (Z87.891) Patient Discussion/Summary All available PSA values reviewed, Options discussed. Questions answered. Pros and cons of prostate biopsy reviewed. Other options discussed. Questions answered Past MRI reviewed Diet changes for prostate health discussed and educational information given. Pros/Cons of prostate health supplements discussed. Treatment options for LUTS reviewed Discussed timed voiding. Discussed fluid and caffeine intake FLomax Rx refilled Treatment options for ED reviewed. Lifestyle change to help prevent UTIs discussed. Encouraged fluid intake. F/U 6 months with PSA Chief Complaint 6 mo w/ psa History of Present IllnessPatient has hx of elevated PSA. Most recent [...] is chronic. Medication did not help this Review of Systems Constitutional: No fever, No chills. Eye: Glasses Ear/Nose/Mouth/Throat: Negative. Respiratory: No shortness of breath, No cough. Cardiovascular: No chest pain, No peripheral edema. Gastrointestinal: No nausea, Genitourinary: Negative except as documented in history of present illness. Hematology/Lymphatics: Patient denies being on blood thinners.. Endocrine: Negative. Immunologic: Not immunocompromised. Musculoskeletal: Negative Integumentary: Negative. Neurologic: Alert and oriented X4. Psychiatric: Negative. Active Problems Problems Benign prostatic hyperplasia (BPH) with urinary urgency (600.01,788.63) (N40.1,R39.15) Elevated PSA (790.93) (R97.20) Erectile dysfunction (607.84) (N52.9) Nocturia (788.43) (R35.1) Primary hyperparathyroidism (252.01) (E21.0) Past Medical History Problems History of myocardial infarction (412) (I25.2) Surgical History Problems History of Bypass History of Prostate biopsy Family History Father Family history of diabetes mellitus (V18.0) (Z83.3) Social History Problems Former smoker (V15.82) (Z87.891) Allergies Medication Sulfa Drugs Recorded By: Eris Busch; 03/08/2021 2:30:22 PM Current Meds Medication NameInstruction amLODIPine Besylate 2.5 MG Oral Tablet Aspirin TABS Folic Acid TABS Levothyroxine Sodium 150 MCG Oral Tablet Lisinopril TABS Methotrexate 2.5 MG Oral Tablet Metoprolol Tartrate TABS Multi-Vitamin Oral Tablet predniSONE 5 MG Oral Tablet PreserVision AREDS TABS Rosuvastatin Calcium TABS Tamsulosin HCl - 0.4 MG Oral CapsuleTAKE 1 CAPSULE Bedtime Vitals Vital Signs Recorded: [id number] 01:08PM Agbfgsegfnk22 Height5 ft 9 in Iwzteu023 lb BMI Qitbwoqftg09.09 kg/m2 BSA Calculated2.05 Tobacco Useb) No PHQ-2 Patient Declined/Screening not indicatedYes Falls Screening (Age 18+)a) No falls within the last year Physical Exam A/O x 3 in No apparent distress Constitutional: General appearance normal Respiratory: Respiratory effort is normal Gastrointestinal:Abdom en is not tender Genitourinary: Kidneys: Not palpable Bilaterally Bladder: Not palpable or tender Scrotum: No mass. No Hydrocele Epididymis: No spermatocele. Not tender Testicles: no mass. WNL Urethra: No Discharge Penis: WNL...No lesions. circumcised Prostate: Symmetric. No Nodules. BENIGN Seminal Vesicles: No mass Sphincter Tone: normal Signatures Electronically signed by : Daniella Elias II, MD; Jun 14 2023 1:19PM EST (Author) Normal [facility] Tobacco Screening.on 023 Fall risk assessment a) No falls within the last year UE-Ucfkgvd-Vv h[place] Work Phone: Tobacco use status CPHS b) No WE-Qiuagho-Sm h[place] Work Phone: Tobacco Screening. Yes MP-Uro logy-As [place] Work Phone: PROSTATE SPECIFIC AGon 06-09 Prostate specific Ag [Mass/Vol] 10.40 ng/mL High 0.00 - 4.00 [facility] Comment on above: Result Comment: The FDA requires that the method used for PSA assay be reported to the physician. Values obtained with different assay methods must not be used interchangeably. This test was performed at [facility] using the Appercode PSA assay is a two-site immunoenzymatic sandwich assay. The assay is approved for measurement of prostate-specific antigen (PSA)in serum and may be used in conjunction with a digital rectal examination in men 50 years and older as an aid in detection of prostate cancer. 6-Tnzbo-ygpjjorlm inhibitors (e.g. Proscar, Finasteride, Avodart, Dutasteride and Denice) for the treatment of BPH have been shown to lower PSA levels by an average of 50% after 6 months of treatment. Performed By: #### P SA #### [id number] [place] [address] Prostate Specific Antigenon 06-09-2023 Prostate specific Ag [Mass/Vol] 10.40 ng/mL above high threshold See Below NF-Mbgxksh-Nk [place] Work Phone: Comment on above: Reference Range: 0.0 0 - 4.00The FDA requires that the method used for PSA assay be reported to the physician. Values obtained with different assay methods must not be used interchangeably. This testwas performed at [facility] using the Appercode PSA assay is a two-site immunoenzymatic sandwich assay. The assay is approved for measurement of prostate-specific antigen (PSA)in serum and may be used in conjunction with a digital rectal examination in men 50 years and older as an aid in detection of prostate cancer.8-Iuokd-qnccgygbb inhibitors (e.g. Proscar, Finasteride, Avodart, Dutasteride and Denice) for the treatment of BPH have been shown to lower PSA levels by an average of 50% after 6 months of treatment. Office Visit (Urology)on Follow-up visit Diagnoses/Problems Assessed Elevated PSA (790.93) (R97.20) Benign prostatic hyperplasia (BPH) with urinary urgency (600.01,788.63) (N40.1,R39.15) Erectile dysfunction (607.84) (N52.9) Former smoker (V15.82) (Z87.891) Nocturia (788.43) (R35.1) Patient Discussion/Summary All available PSA values reviewed, Options discussed. Questions answered. Pros and cons of prostate biopsy reviewed. Other options discussed. Questions answered MRI reviewed x2 Discussed MRI Guided Bx Diet changes for prostate health discussed and educational information given. Pros/Cons of prostate health supplements discussed. Treatment options for LUTS reviewed Flomax Rx refilled Diet changes for prostate health discussed and educational information given. Pros/Cons of prostate health supplements discussed. Treatment options for ED reviewed. Discussed TriMix and ODELL Lifestyle change to help prevent UTIs discussed. Encouraged fluid intake. F/U 6 months with PSA Chief Complaint 6 mo w/ psa History of Present IllnessPatient has hx of elevated PSA. Most recent PSA was 9.23 09/15, prior was 11.08 on 04/15. Prior PSA was 8.45 on 03/15, prior was 6.44 08/14.. Prior PSA was 11.5 in 03/14.. 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 Patient had negative TRUS in 04/13.. 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 BPH sx are mild and stable...some urgency and frequency, Flomax is helpful...No dysuria...No hematuria...Nocturia 1x...No medications for LUTs.. chronic hx of kidney stones...last stone was at least 20 years ago...ED is chronic. Medication did not help this Review of Systems Constitutional: No fever, No chills. Eye: Glasses Ear/Nose/Mouth/Throat: Negative. Respiratory: No shortness of breath, No cough. Cardiovascular: No chest pain, No peripheral edema. Gastrointestinal: No nausea, Genitourinary: Negative except as documented in history of present illness. Hematology/Lymphatics: Patient denies being on blood thinners.. Endocrine: Negative. Immunologic: Not immunocompromised. Musculoskeletal: Negative Integumentary: Negative. Neurologic: Alert and oriented X4. Psychiatric: Negative. Active Problems Problems Benign prostatic hyperplasia (BPH) with urinary urgency (600.01,788.63) (N40.1,R39.15) Elevated PSA (790.93) (R97.20) Erectile dysfunction (607.84) (N52.9) Nocturia (788.43) (R35.1) Primary hyperparathyroidism (252.01) (E21.0) Past Medical History Problems History of myocardial infarction (412) (I25.2) Surgical History Problems History of Bypass History of Prostate biopsy Family History Father Family history of diabetes mellitus (V18.0) (Z83.3) Social History Problems Former smoker (V15.82) (Z87.891) Allergies Medication Sulfa Drugs Recorded By: Eris Busch; 03/08/2021 2:30:22 PM Current Meds Medication NameInstruction amLODIPine Besylate 2.5 MG Oral Tablet Aspirin TABS Folic Acid TABS Levothyroxine Sodium 150 MCG Oral Tablet Lisinopril TABS Methotrexate 2.5 MG Oral Tablet Metoprolol Tartrate TABS Multi-Vitamin Oral Tablet predniSONE 5 MG Oral Tablet PreserVision AREDS TABS Rosuvastatin Calcium TABS Tamsulosin HCl - 0.4 MG Oral CapsuleTAKE 1 CAPSULE Bedtime Vitals Vital Signs Recorded: 14Dec2022 12:58PM Heart Rate59 Vpzvwgof891 Gnhyrnzce90 Gjurlj939 lb 0.6 oz BMI Qtbppedcwl19.39 kg/m2 BSA Calculated2.06 Tobacco Useb) No PHQ-2 Patient Declined/Screening not indicatedYes Falls Screening (Age 18+)a) No falls within the last year Physical Exam A/O x 3 in No apparent distress Constitutional: General appearance normal Respiratory: Respiratory effort is normal Gastrointestinal:Abdom en is not tender Genitourinary: Kidneys: Not palpable Bilaterally Bladder: Not palpable or tender Scrotum: No mass. No Hydrocele Epididymis: No spermatocele. Not tender Testicles: no mass. WNL Urethra: No Discharge Penis: WNL...No lesions. CIrumcised Prostate: Symmetric. No Nodules. BENIGN Seminal Vesicles: No mass Sphincter Tone: normal Signatures Electronically signed by : Daniella Elias II, MD; Dec 14 2022 1:05PM EST (Author) Normal Touchworks Colonoscopyon 11-02-2022 Colonoscopy PATIENTNAME Patient Name: Tyra Maddox EXAMDATE Procedure Date: 11/02/2022 11:13 AM PATIENTID PATIENTACCOUNTNUM PATIENTDOB Date of : 1950 ADMITTYPE Admit Type: Outpatient PATIENTROOM Site: [place] [address] ETHNICITY Ethnicity: Not or RACE Race: White PROVDR Attending MD: Kain Cat DO, [id number] ENDOPROCEDURENAME Procedure: Colonoscopy INDICATION Indications: Colon cancer screening in patient at increased risk: Family history of 1st-degree relative with colon polyps at age 60 years (or older), Colon cancer screening in patient at increased risk: Family history of colon polyps in multiple 1st-degree relatives PRIMARYPROVIDER Providers: Kain Cat DO (Doctor), Edelmira Rankin RN (Nurse), Mame Hodge, Railway Station Manager EDREFPROVIDER Referring: Emanuel Norwood CNP CURRENT_MEDS Medicines: Midazolam 5 mg IV, Meperidine 50 mg IV COMPLIC Complications: No immediate complications. ENDOPROCEDURETEXT Procedure: Pre-Anesthesia Assessment: - Prior to the procedure, a History and Physical was performed, and patient medications and allergies were reviewed. The patient is competent. The risks and benefits of the procedure and the sedation options and risks were discussed with the patient. All questions were answered and informed consent was obtained. Patient identification and proposed procedure were verified by the physician in the pre-procedure area. Mental Status Examination: alert and oriented. Airway Examination: normal oropharyngeal airway and neck mobility. Respiratory Examination: clear to auscultation. CV Examination: normal. Prophylactic Antibiotics: The patient does not require prophylactic antibiotics. Prior Anticoagulants: The patient has taken no anticoagulant or antiplatelet agents. ASA Grade Assessment: II - A patient with mild systemic disease. After reviewing the risks and benefits, the patient was deemed in satisfactory condition to undergo the procedure. The anesthesia plan was to use moderate sedation / analgesia (conscious sedation). Immediately prior to administration of medications, the patient was re-assessed for adequacy to receive sedatives. The heart rate, respiratory rate, oxygen saturations, blood pressure, adequacy of pulmonary ventilation, and response to care were monitored throughout the procedure. The physical status of the patient was re-assessed after the procedure. After I obtained informed consent, the scope was passed under direct vision. Throughout the procedure, the patient's blood pressure, pulse, and oxygen saturations were monitored continuously. The adult colonoscope was introduced through the anus and advanced to the terminal ileum, with identification of the appendiceal orifice and IC valve. The colonoscopy was performed without difficulty. The patient tolerated the procedure well. The quality of the bowel preparation was good. The terminal ileum, ileocecal valve, appendiceal orifice, and rectum were photographed. FINDING Findings: The perianal and digital rectal examinations were normal. Pertinent negatives include normal sphincter tone and no palpable rectal lesions. The terminal ileum appeared normal. The entire examined colon appeared normal on direct and retroflexion views. SEDATION Moderate Sedation: Moderate (conscious) sedation was administered by the nurse and supervised by the endoscopist. The following parameters were monitored: oxygen saturation, heart rate, blood pressure, and response to care. Total physician intraservice time was 22 minutes. EBL Estimated Blood Loss: Estimated blood loss: none. IMPRESS Impression: - The examined portion of the ileum was normal. - The entire examined colon is normal on direct and retroflexion views. - No specimens collected. ENDORECOMMENDATION Recommendation: - Patient has a contact number available for emergencies. The signs and symptoms of potential delayed complications were discussed with the patient. Return to normal activities tomorrow. Written discharge instructions were provided to the patient. - Resume previous diet. - Continue present medications. - Repeat colonoscopy in 5 years for screening purposes. CPT_CODES Procedure Code(s): --- Professional --- G0105, Colorectal cancer screening; colonoscopy on individual at high risk G0500, Moderate sedation services provided by the same physician or other qualified health student career development specialist performing a gastrointestinal endoscopic service that sedation supports, requiring the presence of an independent trained observer to assist in the monitoring of the patient's level of consciousness and physiological status; initial 15 minutes of intra-service time; patient age 5 years or older (additional time may be reported with [address]169, as appropriate) ICD_CODES Diagnosis Co (more content not included)... Normal [facility] No Panel Informationon 11-02 [email or web address]} DQ-Jsdpbun-Jj [facility] DO Work Phone: US LIVERon 06-10-2022 US LIVER Patient Name: TYRA MADDOX STUDY: US LIVER; 06/10/2022 8:59 am INDICATION: ELEVATED LIVER ENZYMES. COMPARISON: CT 02/10/2014. ACCESSION NUMBER(S): [id number] ORDERING CLINICIAN: JEANINE MONTES TECHNIQUE: Multiple images of the right upper quadrant were obtained. FINDINGS: LIVER: Smooth surface contour of the liver. Normal liver size. The echogenicity appears within normal limits. No focal lesion is detected. GALLBLADDER: The gallbladder size is normal. No wall thickening. Sludge is present. There are some tiny mobile gallstones also noted. Negative sonographic Flores's sign. No pericholecystic fluid. BILIARY TREE: No intra or extrahepatic biliary dilatation is identified. The common bile duct measures 4 mm. PANCREAS: Most of the pancreas is obscured by bowel gas. Visualized portions are echogenic, likely fatty. No ductal dilation is detected. RIGHT KIDNEY: The right kidney is normal in size, measuring 11 cm in craniocaudal dimension. The renal cortical echogenicity and thickness are within normal limits. No hydronephrosis or renal calculi are seen. IMPRESSION: The liver is unremarkable in appearance. Gallstones and sludge noted in the gallbladder. No evidence of acute cholecystitis. No biliary ductal dilation. Poorly visualized pancreas, due to bowel gas. Visualized portions appear fatty. Electronically signed by: MASSIMO WOLF MD Normal [facility] MRI Prostateon 05-04-2022 MRI Prostate Normal WI-Xtqixvg-J s [place] Work Phone: Tobacco Screening.on 022 Fall risk assessment a) No falls within the last year KJ-Rbmaltd-Hy [place] Work Phone: Tobacco use status CPHS b) No PO-Fbgfonq-Nw h[place] Work Phone: Tobacco Screening. Yes MP-Uro logy-As h[place] Work Phone: Calcium, Serumon 04-05-2022 Calcium [Mass/Vol] 10.9 mg/dL above high threshold 8.6 - 10.3 GO-Krdkizc-Mv min Main Work Phone: Parathormone Intact, Serumon 04-05-2022 Parathyrin.intact [Mass/Vol] 65.1 pg/mL See Below UV-Ntadqhy-Yu min Main Work Phone: Comment on above: Reference Range: 18. 5 - 88.0 Prostate Specific Antigenon 04-05-2022 Prostate specific Ag [Mass/Vol] 11.08 ng/mL above high threshold See Below OD-Gjgntwj-Xh h[place] Work Phone: Comment on above: Reference Range: 0.0 0 - 4.00The FDA requires that the method used for PSA assay be reported to the physician. Values obtained with different assay methods must not be used interchangeably. This testwas performed at [facility] using the Access Membersuitebritech PSA assay is a two-site immunoenzymatic sandwich assay. The assay is approved for measurement of prostate-specific antigen (PSA)in serum and may be used in conjunction with a digital rectal examination in men 50 years and older as an aid in detection of prostate cancer.6-Nchkj-bhfhpurdk inhibitors (e.g. Proscar, Finasteride, Avodart, Dutasteride and Denice) for the treatment of BPH have been shown to lower PSA levels by an average of 50% after 6 months of treatment. Vitamin D 25-Hydroxyon 04-05 25-hydroxyvitamin D3 [Mass/Vol] 46 ng/mL LH-Vpvuonx-Jm min Main Work Phone: Comment on above: .DEFICIENCY: < 20 NG /MLINSUFFICIENCY: 20-29 NG/MLSUFFICIENCY: 30-100 NG/MLTHIS ASSAY ACCURATELY QUANTIFIES THE SUM OFVITAMIN D3, 25-HYDROXY AND VIT D2,25-HYDROXY. .GFRon 12-31-2021 GFR 96 ml/min/1.73sqm Normal [facility] ([place]) Comment on above: Result Comment: GFR Population mean for , Non- Americans Ages 20-29 = 116 mL/min/1.73 sq.m. Ages 30-39 = 107 mL/min/1.73 sq.m. Ages 40-49 = 99 mL/min/1.73 sq.m. Ages 50-59 = 93 mL/min/1.73 sq.m. Ages 60-69 = 85 mL/min/1.73 sq.m. Ages 70+ = 75 mL/min/1.73 sq.m. Chronic Kidney Disease: Less than 60 mL/min/1.73 square meters End Stage Renal Disease: Less than 15 mL/min/1.73 square meters Performed By: #### C RE, GFR #### [address] [address] GFR Non- 80 ml/min/1.73sqm Normal [facility] ([place]) Comment on above: Result Comment: GFR Population mean for , Non- Americans Ages 20-29 = 116 mL/min/1.73 sq.m. Ages 30-39 = 107 mL/min/1.73 sq.m. Ages 40-49 = 99 mL/min/1.73 sq.m. Ages 50-59 = 93 mL/min/1.73 sq.m. Ages 60-69 = 85 mL/min/1.73 sq.m. Ages 70+ = 75 mL/min/1.73 sq.m. Chronic Kidney Disease: Less than 60 mL/min/1.73 square meters End Stage Renal Disease: Less than 15 mL/min/1.73 square meters Performed By: #### C RE, GFR #### [address] [address] CREon 12-31-2021 Creatinine [Mass/Vol] 0.94 mg/dL Normal 0.70-1.30 [facility] ([place]) Comment on above: Performed By: #### C RE, GFR #### [id number] [place], [place] [address] CT SOFT TISSUE NECK W/ CONTR Mendez 12-31-2021 CT SOFT TISSUE NECK W/ CONTRAST ORIGINAL EXAMINATION: CT neck with intravenous contrast TECHNIQUE: CT of the neck was performed following the uneventful administration of Omnipaque 300 intravenous contrast. Axial images were obtained through the neck with multiplanar reformats. Low dose CT acquisition technique included one of the following options: 1. Automated exposure control, 2. Adjustment of the MA and/or KV according to patient size, or 3. Use of iterative reconstruction. DICOM images are available. COMPARISON: None. HISTORY: ORDERING SYSTEM PROVIDED HISTORY: Reason for Exam: PRIMARY HYPERPARATHYROIDISM FINDINGS: Soft tissues: No evidence of an abscess or drainable fluid collection. Aerodigestive tract: Soft tissue density within the central and right half of the nasopharynx is demonstrated on axial image 44 series 3 and corresponding coronal image 33 series 601. Mild hypertrophy of the lingual tonsils is seen on axial image 153 series 3. A no primary lesion identified within the oropharynx, hypopharynx, larynx, and proximal trachea. Salivary glands: Unremarkable bilateral parotid and submandibular glands. Thyroid: The left lobe of the thyroid gland is atrophic. No discrete mass is seen. No focal masses are identified in the juxtathyroid and periesophageal regions,tracheoesophag eal groove, or visualized mediastinum. Lymph nodes : There are non-specific scattered sub-centimeter lymph nodes in the neck bilaterally. No pathologically enlarged or morphologically suspicious adenopathy. Vessels: Dense calcified plaque of the right carotid bulb causing a 50% stenosis (axial image 43 series 2). Calcified plaque of the left carotid bulb and proximal internal carotid artery with less than a 50% stenosis. Bones: No fracture or aggressive lesion Visualized lung apices: Clear. Visualized brain parenchyma: No acute pathology. Additional comment: Prominent right retromastoid emissary veins are seen on axial image 43 series 3. IMPRESSION: 1. No evidence of a parathyroid adenoma. 2. Soft tissue structure within the central and right paracentral nasopharynx with considerations including soft tissue mass and retained secretions. Consider direct visualization. 3. 50% stenosis of the right carotid bulb. Interpreted by: Luke Lerner MD Preliminary Report By: Luke Lerner MD Electronically signed By Luke Lerner MD Dictated Date: 12/31/2021 1:46:02 PM Prelim Date: 12/31/2021 2:03:59 PM Sign Date: 12/31/2021 2:03:59 PM Ordering Provider: MONALISA BULLOCK [facility] ([place]) LABORATORYOrdered By: Zabrina Rushing on 12-31-2021 Creatinine [Mass/Vol] 0.94 mg/dL Invalid Interpretation Code 0.70 - 1.30 mg/dL AO ADM SS LABORATORYOrdered By: SYSTEM SYSTEM on 12-31-2021 GFR 96 ml/min/1.73sqm Invalid Interpretation Code AO Chemistry S GFR Non- 80 ml/min/1.73sqm Invalid Interpretation Code AO Chemistry S IO UA (automated w/o microsc opy)on 10-20-2021 Protein (U) [Mass/Vol] Negative XF-Ojcevsd-Dl hland Work Phone: IO UA (automated w/o microscopy) (+)small - 15 PR-Ibdzjjx-Qs hland Work Phone: IO UA (automated w/o microscopy) Negative LB-Bjtpgjp-Od h[place] Work Phone: IO UA (automated w/o microscopy) Normal (0.2-1.0 mg/dl) MP-Urolog y-As hland Work Phone: IO UA (automated w/o microscopy) 5.5 1 RK-Kzctskl-Xa hland Work Phone: IO UA (automated w/o microscopy) 1.025 1 TF-Fndhuxl-Ju hland Work Phone: IO UA (automated w/o microscopy) Clear CD-Egkzouo-Bd hland Work Phone: IO UA (automated w/o microscopy) Yellow HB-Ponhxnw-Vr hland Work Phone: Tobacco Screening.on 022 Fall risk assessment a) No falls within the last year OW-Uikfzbz-Sb h[place] Work Phone: Tobacco use status [facility] b) No CM-Wjniwep-Dh h[place] Work Phone: Xray Bone Density, Dexa 1 or More Siteson 08-24-2021 DXA Bone [Mass/Area] Bone density Normal XX-Gxsvpxx-Sm lwell 2100 Work Phone: Tobacco Screening.on 021 Tobacco use status [facility] b) No KT-Ajlvmfv-Uw lwell 2100 Work Phone: Tobacco Screening.on 021 Fall risk assessment a) No falls within the last year XK-Pqrlgrl-Jw h[place] Work Phone: Tobacco use status [facility] b) No HQ-Iknrdyr-Im hland Work Phone: MRI Prostateon 03-30-2021 MRI Prostate Normal TK-Uoeugcj-V s hland Work Phone: IO UA (automated w/o microsc opy)on 03-08-2021 Protein (U) [Mass/Vol] Negative KG-Dntuwra-Ml hland Work Phone: IO UA (automated w/o microscopy) Trace TV-Vfchbir-At hland Work Phone: IO UA (automated w/o microscopy) Negative VO-Qrwsnhv-Ow h[place] Work Phone: IO UA (automated w/o microscopy) Normal (0.2-1.0 mg/dl) MP-Urolog y-As [place] Work Phone: IO UA (automated w/o microscopy) 5.5 1 SD-Zvdovzc-Dw hland Work Phone: IO UA (automated w/o microscopy) 1.030 1 QD-Roxscyp-Uz h[place] Work Phone: [phone] IO UA (automated w/o microscopy) Clear BA-Epcvhpb-Gh hland Work Phone: IO UA (automated w/o microscopy) Yellow WM-Bwjrnym-Yw hland Work Phone: Tobacco Screening.on 021 Fall risk assessment a) No falls within the last year UO-Dscrggd-Nf hland Work Phone: [phone] Tobacco use status CPHS b) No IX-Tmwyfcd-Ly hland Work Phone: [phone] IO UA (nonautomated w/o micr oscopy)on 03-30-2020 Protein (U) [Mass/Vol] Negative XC-Tzaikxh-Nu h[place] Work Phone: [phone] IO UA (nonautomated w/o microscopy) Yellow TT-Pbkhusr-Cx hland Work Phone: [phone] IO UA (nonautomated w/o microscopy) Clear OM-Jrsiptm-Ve hland Work Phone: [phone] IO UA (nonautomated w/o microscopy) Negative IS-Dsfthss-Lb hland Work Phone: IO UA (nonautomated w/o microscopy) Normal (0.2-1.0 mg/dl) MP-Urolog y-As h[place] Work Phone: [phone] IO UA (nonautomated w/o microscopy) 5.5 ZN-Ujsipqn-Uq hland Work Phone: [phone] IO UA (nonautomated w/o microscopy) 1.030 HV-Kkfusus-Kn [place] Work Phone: [phone] Otheron 03-30-2020 29cc TC-Lmchuus-Fh hland Work Phone: [phone] PROGRESSon 03-12-2019 Protein mass conc HNO ID: [id number] Author: Titus Kim (Od) Devorah COMBS Service: ? Author Type: HOME CARE AND HOME HEALTH AIDES TEACHER Type: Progress Notes Filed: 03/12/2019 2:37 PM Note Text: Assessment and Plan H35.3131 Early dry stage nonexudative age-related macular degeneration of both eyes (primary encounter diagnosis) H35.363 Macular drusen, bilateral Comment: AREDS 2 supplementation, smoking, Amsler grid testing, and warnings regarding the transformation from dry to the wet form of macular degeneration were discussed with patient. Recheck in one year. H25.813 Combined form of senile cataract of both eyes Comment: Mild cataract in both eyes. Well tolerated at this time. Discussed possible future affect on daily activities to watch for. Monitor as instructed. 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 Retinas flat and intact with no apparent retinal tear or traction. Monitor yearly. H52.4 Presbyopia - Both Eyes H52.13 Myopia of both eyes Comment: Glasses diaz adequate. Update as desired. I have confirmed and edited as necessary the relevant ophthalmic history, ROS, and the neuro exam findings as obtained by others. I have seen and examined Tyra Maddox. I have discussed the case and the management of this patient's care with the Resident/Fellow, if applicable. I also have reviewed and agree with the assessment and plan as stated above and agree with all of its relevant components. Titus Fairchild, II, OD Normal [facility] Vital Signs Date Time Vital Sign Value Performing Clinician Facility 07-19-2024 08:40-0400 Body height 180.3 cm Bala Mcdonough MD Work Phone: [facility] 07-19-2024 08:40-0400 Body mass index (BMI) [Ratio] 26.92 kg/m2 Bala Mcdonough MD Work Phone: [facility] 07-19-2024 08:40-0400 Body weight 87.54 kg Bala Mcdonough MD Work Phone: [facility] 07-19-2024 08:40-0400 Diastolic blood pressure 44 mm[Hg] Bala Mcdonough MD Work Phone: [facility] 07-19-2024 08:40-0400 Heart rate 52 /min Bala Mcdonough MD Work Phone: [facility] 07-19-2024 08:40-0400 SaO2% (BldA) [Mass fraction] 98 % Bala Mcdonough MD Work Phone: [facility] 07-19-2024 08:40-0400 Systolic blood pressure 113 mm[Hg] Bala Mcdonough MD Work Phone: [facility] 12-13-2023 13:20-0400 Body height 177.8 cm Daniella Elias MD Work Phone: [facility] 12-13-2023 13:20-0400 Body mass index (BMI) [Ratio] 27.84 kg/m2 Daniella Elias MD Work Phone: [facility] 12-13-2023 13:20-0400 Body weight 88 kg Daniella Elias MD Work Phone: [facility] 12-13-2023 13:20-0400 Respiratory rate 16 /min Daniella Elias MD Work Phone: [facility] 06-14-2023 13:08-0400 Body height 175.26 cm Emanuel L Hellinger Work Phone: SK-Xczhxjv-Stvffmb Work Phone: 06-14-2023 13:08-0400 Body mass index (BMI) [Ratio] 29.09 kg/m2 Emanuel L Hellinger Work Phone: IT-Wcgmmiw-Sgxctuw Work Phone: 06-14-2023 13:08-0400 Body surface area Derived from formula 2.05 m2 Emanuel L Hellinger Work Phone: NK-Psdshex-Kzouild Work Phone: 06-14-2023 13:08-0400 Body weight 89.36 kg Emanuel L Hellinger Work Phone: XO-Hwbylot-Vpjqeaz Work Phone: 06-14-2023 13:08-0400 Respiratory rate 16 /min Emanuel L Hellinger Work Phone: MI-Fcrhsop-Txcakxe Work Phone: 04-20-2022 13:33-0400 Body mass index (BMI) [Ratio] 29.83 kg/m2 Emanuel L Hellinger Work Phone: OT-Icisnbk-Orodeel Work Phone: 04-20-2022 13:33-0400 Body surface area Derived from formula 2.07 m2 Emanuel L Hellinger Work Phone: GB-Embohor-Ghaiagr Work Phone: 04-20-2022 13:33-0400 Body weight 91.63 kg Emanuel L Hellinger Work Phone: UA-Tmlnjdz-Lqcsksa Work Phone: 04-20-2022 13:33-0400 Diastolic blood pressure 72 mm[Hg] Emanuel L Hellinger Work Phone: DY-Xeakfyk-Gaaehoe Work Phone: 04-20-2022 13:33-0400 Respiratory rate 18 /min Emanuel L Hellinger Work Phone: YS-Kyqitiw-Njumwhg Work Phone: 04-20-2022 13:33-0400 Systolic blood pressure 118 mm[Hg] Emanuel L Hellinger Work Phone: IK-Icnypns-Oswblnx Work Phone: 10-20-2021 13:31-0500 Body height 175.26 cm Emanuel Hopson Hellinger Work Phone: EK-Fcsxqez-Mjxgenz Work Phone: 10-20-2021 13:31-0500 Body mass index (BMI) [Ratio] 31.21 kg/m2 Emanuel L Hellinger Work Phone: PC-Saaifid-Apqaplo Work Phone: 10-20-2021 13:31-0500 Body surface area Derived from formula 2.11 m2 Emanuel L Hellinger Work Phone: MG-Spnuegp-Ibtkchv Work Phone: 10-20-2021 13:31-0500 Body weight 95.88 kg Emanuel L Hellinger Work Phone: NU-Zgnchet-Jiuewxw Work Phone: 10-20-2021 13:31-0500 Diastolic blood pressure 76 mm[Hg] Emanuel L Hellinger Work Phone: FL-Ziweahs-Uchmnvh Work Phone: 10-20-2021 13:31-0500 Heart rate 62 /min Emanuel Hopson Hellinger Work Phone: FU-Iofprsb-Cgummcm Work Phone: 10-20-2021 13:31-0500 Systolic blood pressure 156 mm[Hg] Emanuel L Hellinger Work Phone: QC-Bpoosqz-Quhbxho Work Phone: 08-18-2021 10:55-0500 Body height 175.26 cm Emanuel Hopson Hellinger Work Phone: UG-Dawdwhd-Cumzhcm 2100 Work Phone: 08-18-2021 10:55-0500 Body mass index (BMI) [Ratio] 30.42 kg/m2 Emanuel Hopson Hellinger Work Phone: UU-Ttmdsnv-Vnurbcx 2100 Work Phone: 08-18-2021 10:55-0500 Body surface area Derived from formula 2.09 m2 Emanuel Cervanteslinger Work Phone: VL-Tsahrhm-Thtnkca 2100 Work Phone: 08-18-2021 10:55-0500 Body weight 93.44 kg Emanuel Cervanteslinger Work Phone: AR-Acokmxm-Rdyvmyf 2100 Work Phone: 08-18-2021 10:55-0500 Diastolic blood pressure 75 mm[Hg] Emanuel Hopson Hellinger Work Phone: EX-Hrwebcq-Dcuruup 2100 Work Phone: 08-18-2021 10:55-0500 Heart rate 75 /min Emanuel L Hellinger Work Phone: BH-Yjmxytm-Gpwqdzq 2100 Work Phone: 08-18-2021 10:55-0500 Systolic blood pressure 165 mm[Hg] Emanuel L Hellinger Work Phone: YV-Vyqrwmt-Tlesnuj 2100 Work Phone: 04-12-2021 14:44-0400 Body height 175.26 cm Emanuel L Billylinger Work Phone: GM-Aeyaxxf-Wfsrkup Work Phone: 04-12-2021 14:44-0400 Body mass index (BMI) [Ratio] 30.61 kg/m2 Emanuel L Billylinger Work Phone: QH-Jnidrkr-Yfbmaij Work Phone: 04-12-2021 14:44-0400 Body surface area Derived from formula 2.1 m2 Emanuel L Billylinger Work Phone: GO-Txpamas-Rkiubua Work Phone: 04-12-2021 14:44-0400 Body weight 94.01 kg Emanuel Cervanteslinger Work Phone: IH-Kzwgbip-Gfolsil Work Phone: 04-12-2021 14:44-0400 Diastolic blood pressure 76 mm[Hg] Emanuel L Billylinger Work Phone: WQ-Ylouclu-Sgiljpb Work Phone: 04-12-2021 14:44-0400 Heart rate 69 /min Emanuel L Billylinger Work Phone: FX-Fkbtypx-Mqxcsje Work Phone: 04-12-2021 14:44-0400 Systolic blood pressure 140 mm[Hg] Emanuel L Hellinger Work Phone: VR-Vxydbzb-Ckwsxed Work Phone: 03-08-2021 14:27-0400 Body height 175.26 cm Daniella Elias II, MD Work Phone: EK-Jxijqtu-Rntmjun Work Phone: 03-08-2021 14:27-0400 Body mass index (BMI) [Ratio] 29.98 kg/m2 Daniella Elias II, MD Work Phone: BH-Grulceu-Cnjvdfv Work Phone: 03-08-2021 14:27-0400 Body surface area Derived from formula 2.08 m2 Daniella Elias II, MD Work Phone: HK-Awxfrtt-Cmbfemj Work Phone: 03-08-2021 14:27-0400 Body weight 92.09 kg Daniella Elias II, MD Work Phone: KK-Xntmibl-Jdytjsf Work Phone: 03-08-2021 14:27-0400 Diastolic blood pressure 74 mm[Hg] Daniella Elias II, MD Work Phone: TN-Ykmsdnh-Udjdntj Work Phone: 03-08-2021 14:27-0400 Heart rate 74 /min Daniella Elias II, MD Work Phone: HU-Ezmdiye-Pyzofuf Work Phone: 03-08-2021 14:27-0400 Systolic blood pressure 161 mm[Hg] Daniella Elias II, MD Work Phone: ED-Tgrazfv-Lgcpxcm Work Phone: 03-30-2020 16:56-0400 BMI (Body Mass Index) 27.75 kg/m2 Daniella Elias II MP-Urology -[place] Work Phone: 03-30-2020 16:56-0400 Body weight 88.91 kg Daniella Elias II LJ-Crfutrn-Qwqlj nd Work Phone: 03-30-2020 16:56-0400 BP Diastolic 90 mm[Hg] Daniella Elais II IE-Moqvgny-Bhltk nd Work Phone: 03-30-2020 16:56-0400 BP Systolic 160 mm[Hg] Daniella Elias II HV-Lsjcbig-Gdmwu nd Work Phone: 03-30-2020 16:56-0400 BSA (Body Surface Area) 2.08 m2 Daniella Elias II PV-Kkywxvu-Fdaqyws Work Phone: 03-30-2020 16:56-0400 Height 179 cm Daniella Elias II TH-Yfmqiah-Dlapk nd Work Phone: 03-30-2020 [phone] Pulse (Heart Rate) 72 /min Daniella Elias II, MP-Urology-[place] Work Phone: Encounters Encounter Date Encounter Type Care Provider Facility Start: 07-19-2024 End: 07-19-2024 Office outpatient visit 25 minutes Bala Mcdonough MD Work Phone: [facility] Comment on above: Rheumatoid arthritis , involving unspecified site, unspecified whether rheumatoid factor present (HCC) (Primary Dx); S/P CABG x 3; Coronary artery disease involving [place] coronary artery of [place] heart without angina pectoris; Sinus bradycardia Start: 07-19-2024 End: 07-19-2024 ambulatory [facility] Start: 07-09-2024 End: 07-09-2024 ambulatory [facility] Start: 06-24-2024 End: 06-28-2024 [facility] Start: 06-24-2024 End: 06-28-2024 Encounter for preprocedural cardiovascular examination [facility] Start: 06-12-2024 End: 06-12-2024 ambulatory [facility] Start: 06-10-2024 End: 06-10-2024 ambulatory [facility] Start: 06-04-2024 End: 06-04-2024 ambulatory [facility] Start: 05-31-2024 End: 05-31-2024 ambulatory [facility] Start: 05-23-2024 End: 05-27-2024 ambulatory [facility] Start: 05-23-2024 End: 05-23-2024 ambulatory ANGELIA RUSH [facility] Start: 05-08-2024 End: 05-08-2024 ambulatory [facility] Start: 04-17-2024 End: 04-17-2024 ambulatory [facility] Start: 04-03-2024 ambulatory SEGUN ROSADO [facility] Start: 12-13-2023 End: 12-13-2023 Office outpatient visit 25 minutes Daniella Elias MD Work Phone: [facility] Comment on above: Benign prostatic hyp erplasia (BPH) with urinary urgency; Elevated PSA; Erectile dysfunction, unspecified erectile dysfunction type; Nocturia; Benign prostatic hyperplasia with urinary frequency Start: 12-13-2023 End: 12-13-2023 ambulatory DANIELLA Kay ELIAS [facility] Start: 12-08-2023 End: 12-08-2023 ambulatory JOSE DE JESUS [facility] Start: 08-28-2023 End: 08-28-2023 ambulatory [facility] Start: 07-20-2023 End: 07-20-2023 Subsequent hospital visit by physician [address] Comment on above: 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 Kain Cat Facility:[id number] Start: 06-10-[address] Jeanine Montes Fa cility:[id number] Start: 05-12-2022 Office outpatient vi sit 15 minutes Emanuel L Hellinger Work Phone: FZ-Gndzdfp-Rmyfkerp HC 232 DO Work Phone: Start: 05-06-2022 Chart Update Emanuel Ohara tomy Work Phone: HO-Dvspqmz-Kdaqgql Work Phone: Start: 05-04-[address] Daniella Ho rd Elias II Facility:[id number] Start: 04-20-2022 Office outpatient vi sit 25 minutes Emanuel Cervanteslinger Work Phone: WL-Yfhahkb-Ubzfsqh Work Phone: Start: 04-13-2022 Chart Update Emanuel Cervanteslin tomy Work Phone: CN-Uciggwy-Fyeve Main Work Phone: Start: 04-06-2022 Chart Update Emanuel Ohara tomy Work Phone: AM-Knqjzrd-Hgglkhv Work Phone: Start: 12-31-2021 End: 12-31-2021 Patient encounter procedure MONALISA BULLOCK MD [facility] Start: 10-20-2021 Office outpatient vi sit 15 minutes Emanuel Cervanteslinger Work Phone: WI-Ebyunnu-Zwerrmp Work Phone: Start: 09-08-2021 Chart Update Emanuel Cervanteslin tomy Work Phone: AP-Ukidgif-Mkvbcrc 2100 Work Phone: Start: 08-18-2021 Office consultation new/estab patient 80 min Emanuel L Hellinger Work Phone: MD-Eekfkpe-Zggoxlc 2100 Work Phone: Start: 04-12-2021 Office outpatient vi sit 15 minutes Emanuel L Billylinger Work Phone: DI-Ehuzmnt-Ovxvkjr Work Phone: Start: 03-08-2021 Office outpatient vi sit 25 minutes Daniella Elias II, MD Work Phone: UV-Whfxrsw-Wajwrvf Work Phone: Procedures Date Procedure Procedure Detail Performing Clinician Start: 12-08-2023 CBC W Auto Different ial panel - Blood JOSE DE JESUS SATHYAJEFF Start: 12-08-2023 Comprehensive metabo lic 2000 panel - Serum or Plasma JOSE DE JESUS ORTIZ Start: 12-08-2023 PROSTATE SPECIFIC ANTIGEN JOSE DE JESUS ORTIZ Start: 08-28-2023 DEXA BONE DENSITY JEANINE MONTES Start: 07-20-2023 US ABDOMEN LIMITED LIVER JEANINE MONTES Start: 07-20-2023 Us abdominal real ti me w/image limited Jeanine Montes MD Start: 11-02-2022 End: 11-02-2022 Colonoscopy Emanuel Norwood Work Phone: Start: 06-24-2016 History of coronary artery bypass grafting S/P CABG x 3 Bala Mcdonough MD Work Phone: Biopsy of prostate Daniella Elias II, MD Work Phone: Construction of shunt Daniella orantes II History of coronary artery bypass grafting S/P CABG x 3( Confirmed ) MONALISA BULLOCK MD History of coronary artery bypass grafting S/P CABG x 3 Bala Mcdonough MD Work Phone: Plan of Treatment Date Care Activity Detail Author Start: 11-02-2032 Screening for malign ant neoplasm of colon [facility] Start: 01-17-2025 End: 01-17-2025 Patient encounter procedure 01/17/2025 8:40 AM EDT Office Visit [facility] [address] [place] [id number] Bala Mcdonough MD [address] [address] [facility] Start: 06-12-2024 End: 06-12-2024 Patient encounter procedure 06/12/2024 2:45 PM EDT Office Visit [facility] [address] [facility] [address] [place] [address] Daniella Elias MD [address] [place] [address] [facility] Start: 05-26-2024 Influenza vaccination Influenza Vacc ine (#1) [facility] Start: 12-13-2023 End: 12-13-[address] [facility] Start: 08-28-2023 End: 08-28-2023 Professional / ancillary services management 08/28/2023 7:50 AM EST Ancillary Procedure [facility] [address] [facility] [address] [address] [place] [id number] [facility] Start: 06-14-2023 FUV, Provider: Daniella Elias II, Status: Pen, Time: 1:00 PM FUV, Provider: Daniella Elias II, Status: Pen, Time: 1:00 PM [facility] Work Phone: Start: 05-26-2023 COVID-19 Vaccine ( season) COVID-19 Vaccine ( season) [facility] Start: 05-26-2023 Influenza vaccination Influenza Vacc ine (#1) [facility] Start: 12-14-2022 FUV, Provider: Daniella Elias II, Status: Pen, Time: 1:00 PM FUV, Provider: Daniella Elias II, Status: Pen, Time: 1:00 PM [facility] 232 DO Work Phone: Start: 05-12-2022 VIRFUVHOMLaz, Provider : Daniella Elias II, Status: Pen, Time: 9:45 AM VIRFUVHOME, Provider: Daniella Elias II, Status: Pen, Time: 9:45 AM [facility] Work Phone: Start: 04-20-2022 FUV, Provider: Daniella Elias II, Status: Pen, Time: 1:30 PM FUV, Provider: Daniella Elias II, Status: Pen, Time: 1:30 PM ZZ-Yalqdhb-Ljwqlsc Work Phone: Start: 10-20-2021 FUV, Provider: Daniella Elias II, Status: Pen, Time: 1:30 PM FUV, Provider: Daniella Elias II, Status: Pen, Time: 1:30 PM ZL-Yqgxjuq-Eokvfbb Work Phone: Start: 04-12-2021 FUV, Provider: Daniella Elias II, Status: Pen, Time: 2:45 PM FUV, Provider: Daniella Elias II, Status: Pen, Time: 2:45 PM RC-Emcsjgv-Zlbalyr Work Phone: Start: 01-27-2021 COVID-19 Vaccine (2 - Booster for Yasmany series) COVID-19 Vaccine (2 - Booster for Yasmany series) [facility] Start: 12-30-2020 COVID-19 Vaccine (2 - Yasmany risk series) COVID-19 Vaccine (2 - Yasmany risk series) [facility] Start: 07-26-2019 Pneumococcal Vaccine : 65+ Years (2 - PPSV23 or PCV20) Pneumococcal Vaccine: 65+ Years (2 - PPSV23 or PCV20) [facility] Start: 09-20-2018 Pneumococcal Vaccine : Age 65+ (2 of 2 - PPSV23 or PCV20) Pneumococcal Vaccine: Age 65+ (2 of 2 - PPSV23 or PCV20) [facility] Start: 01-19-2017 Fall risk assessment Falls Risk Asse ssment [facility] Start: 01-19-2002 Screening for malign ant neoplasm of colon Flexible sigmoidoscopy [facility] Start: 01-19-2002 Zoster Vaccines (1 of 2) Zoste r Vaccines (1 of 2) [facility] Start: 01-19-1974 DTaP/Tdap/Td Vaccine s (1 - Tdap) DTaP/Tdap/Td Vaccines (1 - Tdap) [facility] Start: 01-19-1971 Administration of he rpes zoster vaccine Zoster Vaccines (1 of 2) [facility] Start: 01-19-1970 Hepatitis C screening Hepatitis C Sc pj [facility] Start: 1964 Depression screening using PHQ-9 (Patient Health Questionnaire 9) score Depression Screening/Follow-Up (PHQ-2/9) [facility] Start: 01-19-1955 Medicare Wellness Visit Medicare Wel lness Visit [facility] Start: 1952 Abdominal aortic aneurysm screening Abdominal Aortic Ultrasound [facility] Start: 1952 Lipid panel Lipid Panel [facility] Start: 1952 Medicare Annual Well ness Visit Medicare Annual Wellness Visit (AWV) [facility] Start: 1952 Prostate specific antigen measurement PSA Level [facility] Start: 1952 Screening for malign ant neoplasm of colon [facility] Start: 1952 Tetanus vaccination Tetanus: Every 1 0yrs [facility] Start: 1952 Thyroid stimulating hormone measurement TSH Level [facility] End: 07-20-[address] [facility] Service Area Work Phone: Comment on above: Once for 1 Occurrenc es starting 07/20/2023 until 07/20/2023 Immunizations Immunization Date Immunization Notes Care Provider Zeus lomas 12-02-2020 Yasmany COVID-19 Vac cine 0.5 ML Intramuscular Suspension Emanuel Norwood Work Phone: QT-Ncmtycr-Wkhjher 2100 Work Phone: 07-26-2018 pneumococcal conjuga te vaccine, 13 valent Emanuel Norwood Work Phone: OT-Fsmbunw-Lnmhish 2100 Work Phone: Payers Date Payer Category Payer Unknown 2017 Unknown [id number] 2016 Medicare [id number] 2016 Medicare [id number] 1952 Unknown [id number] 2.16.8 40.1.416548.3.579.2.9 1952 Unknown [id number] 2.16.8 40.1.218186.3.579.2.9 1952 Unknown [id number] 2.16.8 40.1.907493.3.579.2.9 1952 Unknown [id number] 2.16. 840.1.232436.3.579.2.356 1952 Unknown [id number] 2.16. 840.1.621194.3.579.2.356 1952 Unknown [id number] 2.16.84 0.1.965533.3.579.2.1243 1952 Unknown [id number] 2.16.8 40.1.382403.3.579.2.1243 1952 Unknown [id number] 2.16.8 40.1.553971.3.579.2.1243 1952 Unknown [id number] 2.16.8 40.1.924471.3.579.2.1243 1952 Unknown [id number] 2.16.8 40.1.477129.3.579.2.5 1952 Unknown [id number] 2.16.8 40.1.351865.3.579.2.1245 1952 Unknown [id number] 2.16. 840.1.125966.3.579.2. 1952 Unknown [id number] 2.16. 840.1.782271.3.579.2. 1952 Unknown [id number] 2. 840.1.998423.3.579.2. 1952 Unknown [id number] 2.16. 840.1.088011.3.579.2.90 1952 Unknown [id number] 2.16. 840.1.232885.3.579.2. 1952 Unknown [id number] 2.16. 840.1.575195.3.579.2.90 1952 Unknown [id number] 2.16. 840.1.079719.3.579.2.90 1952 Unknown [id number] 2.16. 840.1.887739.3.579.2.903 1952 Unknown [id number] 2.16. 840.1.564764.3.579.2.903 1952 Unknown [id number] 2.16. 840.1.251412.3.579.2.903 1952 Unknown [id number] 2.16. 840.1.739833.3.579.2.903 1952 Unknown [id number] 2.16. 840.1.713321.3.579.2.903 1952 Unknown [id number] 2.16. 840.1.307720.3.579.2.903 1952 Unknown [id number] 2.16. 840.1.427154.3.579.2.903 Social History Date Type Detail Facility Start: 12-13-2023 End: 07-09-2024 Former smoker Former smoker JF-Pgokbvj-Stovxsn Work Phone: Start: 11-12-2020 End: 12-13-2023 Tobacco smoking status Never smoked tobacco (finding) [facility] Sex Assigned At Sex [facility] Tobacco smoking status NHIS Tobacco smoking consumption unknown [facility] Work Phone: Start: 1950 Sex Assigned At Not on file [facility] Work Phone: Start: 12-13-2023 End: 07-09-2024 Gender identity Not on file [facility] Work Phone: Start: 07-10-2023 End: 12-13-2023 Exposure to SARS-CoV-2 (event) Not sure [facility] Start: 12-13-2023 Tobacco use and exposure Smokeless tobacco non-user [facility] Work Phone: Start: 04-17-2024 Tobacco smoking status NHIS Ex-smoker [facility] End: 09-25-1986 History of tobacco use Current smoker [facility] End: 09-25-1986 History of tobacco use Cigarette Smoker [facility] Start: 07-19-2024 Alcoholic beverage intake Current non-drinker of alcohol (finding) [facility] Start: 04-17-2024 Gender identity Identifies as male gender (finding) [facility] Start: 04-17-2024 Sexual orientation Heterosexual (fin ding) [facility] NEGATED: Highlighted row - - BI-Phiqnwo-Wsnnbzk Work Phone: Medical Equipment Procedure Code Equipment Code Equipment Origin al Text Equipment Identifier Dates Device 5fr Closu re Vascade - [id number] Start: 05-31-2024 Stent 3.50 X 48 Synergy Xd Mr - [id number] Start: 07-09-2024 Stent 2.50 X 20 Synergy Xd Mr - [id number] Start: 07-09-2024 Functional Status Date Assessment Result Facility NEGATED: Highlighted row Functional performance Functional status health issues are not documented Disease BZ-Wxfxcta-Eddrdwl Work Phone: Mental Status Date Assessment Result Facility NEGATED: Highlighted row Cognitive function [Interpretation] Cognitive status health issues are not documented Disease MD-Umdxesw-Vmortqx Work Phone: Clinical Notes 03-15-2021 to 07-19-2024 Bala Mcdonough MD - 07/19/2024 9:20 AM Priyanka Son MA - 07/19/2024 8:39 AM EDTPatient Winston Elias MD - 12/13/2023 1:30 PM EDTLaboratory Note Date & Type Note Facility 07-19-2024 Note [facility] [address] [facility] [address] [facility] [phone] Subjective: Tyra Maddox is a 74 y.o. male seen in the office today for Chief Complaint Patient presents with Follow-up Post PCI - no complaints Patient with history of coronary bypass grafting in 2013 history of rheumatoid arthritis developed progressive angina pectoris had an abnormal nuclear stress test heart cath showed patent JEFFERS to the LAD patent vein graft to the circumflex area. Totally occluded vein graft to right coronary artery with distal total chronic occlusion. Patient underwent a complex PCI with arthrectomy and coronary stenting x 2 to the right coronary artery and right posterior branch. Normal LV function and valve function on echo. Patient is feeling well denies any chest pain he has more energy and interestingly the swelling in his lower extremities has improved after his coronary intervention. He is complaining about the caba of the Brilinta. Reviewed how important is to continue at least for a month we will check with the interventional team about when he can be switched to Plavix with his low-dose aspirin. Maintain Brilinta at this point. Heart rate consistently in the 50s we will reduce his metoprolol to 25 mg twice a day maintain the amlodipine at 10 mg for now. Says he had severe hypertension in the past but that was associated with hyperparathyroidism which has been treated. Last calcium 10.3 Otherwise see back in 6 months he has no interest in cardiac rehab. Discussed takes prednisone only as needed for his rheumatoid arthritis. Quit smoking 1986 Overview of Problems Addressed: Problem Ra (Rheumatoid Arthritis) (Formerly [facility]) Sinus Bradycardia S/P Cabg X 3 Complex PCI right coronary artery distal 2023. Normal LV function JEFFERS to LAD, SVG to Ramus, SVG to PDA 2013. Coronary Artery Disease Involving [place] Coronary Artery of [place] Heart Without Angina Pectoris PCI distal right coronary artery 2023 Assessment & Plan: Reviewed No problem-specific Assessment & Plan notes found for this encounter. Histories: Past Medical History: Diagnosis Date Asthma CAD (coronary artery disease) Degenerative joint disease of cervical and lumbar spine Hyperlipidemia Hypertension Hypothyroidism Past Surgical History: Procedure Laterality Date CARDIAC CATHETERIZATION 05/17/2013 Severe triple vessel CAD/EF of 59% CARDIAC CATHETERIZATION N/A 05/31/2024 Procedure: Coronary Angiogram; Surgeon: Jake Haile MD; Location: [facility]; Service: Cardiovascular CARDIAC CATHETERIZATION N/A 05/31/2024 Procedure: Left Heart Cath w/Grafts; Surgeon: Jake Haile MD; Location: [facility]; Service: Cardiovascular CARDIAC CATHETERIZATION N/A 06/04/2024 Procedure: PCI Planned Complex Intervention; Surgeon: Jake Haile MD; Location: [facility]; Service: Cardiovascular CARDIAC CATHETERIZATION N/A 06/04/2024 Procedure: Angioplasty - Coronary; Surgeon: Jake Haile MD; Location: [facility]; Service: Cardiovascular CARDIAC CATHETERIZATION N/A 07/09/2024 Procedure: PCI Planned Complex Intervention; Surgeon: Jake Haile MD; Location: [facility]; Service: Cardiovascular CARDIAC CATHETERIZATION N/A 07/09/2024 Procedure: LESVIA Stent - Coronary; Surgeon: Jake Haile MD; Location: [facility]; Service: Cardiovascular CARPAL TUNNEL RELEASE CATARACT EXTRACTION W/ INTRAOCULAR LENS IMPLANT Bilateral CORONARY ARTERY BYPASS GRAFT 06/07/2013 JEFFERS-LAD/SVG-OM/SVG-PDA CT COLONOSCOPY 03/12/2023 CT COLONOSCOPY OR CATH PLMT L HRT & ARTS W/NJX & ANGIO IMG S&I N/A 07/09/2024 Procedure: Left Heart Cath; Surgeon: Jake Haile MD; Location: [facility]; Service: Cardiovascular OR ENDOLUMINAL CORONARY IVUS OCT I&R INITIAL VESSEL N/A 07/09/2024 Procedure: IVUS - Coronary; Surgeon: Jake Haile MD; Location: [facility]; Service: Cardiovascular OR L HRT CATH W/NJX L VENTRICULOGRAPHY IMG S&I N/A 06/04/2024 Procedure: Left Heart Cath; Surgeon: Jake Haile MD; Location: [facility]; Service: Cardiovascular OR PRQ TRLUML CORONARY ANGIO/ATHERECT ONE ART/BRNCH N/A 07/09/2024 Procedure: Atherectomy - Coronary; Surgeon: Jake Haile MD; Location: [facility]; Service: Cardiovascular ULNAR NERVE REPAIR Bilateral UMBILICAL HERNIA REPAIR 2005, 2006 Family History Problem Relation Age of Onset Heart disease Father Heart disease Brother Heart disease Brother Social History Tobacco Use Smoking status: Former Current packs/day: 0.00 Types: Cigarettes Quit date: 09/25/1986 Years since quittin.8 Vaping Use Vaping status: Never Used Substance Use Topics Alcohol use: No Drug use: No Patient's Medications New Prescriptions No medications on file Pre (more content not included)... [facility] 07-19-2024 History of Present illness Narrative [facility] [address] [facility] [address] [facility] [id number] Subjective: Tyra Maddox is a 74 y.o. male seen in the office today for Chief Complaint Patient presents with Follow-up Post PCI - no complaints Patient with history of coronary bypass grafting in 2013 history of rheumatoid arthritis developed progressive angina pectoris had an abnormal nuclear stress test heart cath showed patent JEFFERS to the LAD patent vein graft to the circumflex area. Totally occluded vein graft to right coronary artery with distal total chronic occlusion. Patient underwent a complex PCI with arthrectomy and coronary stenting x 2 to the right coronary artery and right posterior branch. Normal LV function and valve function on echo. Patient is feeling well denies any chest pain he has more energy and interestingly the swelling in his lower extremities has improved after his coronary intervention. He is complaining about the caba of the Brilinta. Reviewed how important is to continue at least for a month we will check with the interventional team about when he can be switched to Plavix with his low-dose aspirin. Maintain Brilinta at this point. Heart rate consistently in the 50s we will reduce his metoprolol to 25 mg twice a day maintain the amlodipine at 10 mg for now. Says he had severe hypertension in the past but that was associated with hyperparathyroidism which has been treated. Last calcium 10.3 Otherwise see back in 6 months he has no interest in cardiac rehab. Discussed takes prednisone only as needed for his rheumatoid arthritis. Quit smoking 1986 Overview of Problems Addressed: Problem Ra (Rheumatoid Arthritis) (Formerly [facility]) Sinus Bradycardia S/P Cabg X 3 Complex PCI right coronary artery distal 2023. Normal LV function JEFFERS to LAD, SVG to Ramus, SVG to PDA 2013. Coronary Artery Disease Involving [place] Coronary Artery of [place] Heart Without Angina Pectoris PCI distal right coronary artery 2023 Assessment & Plan: Reviewed No problem-specific Assessment & Plan notes found for this encounter. Histories: Past Medical History: Diagnosis Date Asthma CAD (coronary artery disease) Degenerative joint disease of cervical and lumbar spine Hyperlipidemia Hypertension Hypothyroidism Past Surgical History: Procedure Laterality Date CARDIAC CATHETERIZATION 05/17/2013 Severe triple vessel CAD/EF of 59% CARDIAC CATHETERIZATION N/A 05/31/2024 Procedure: Coronary Angiogram; Surgeon: Jake Haile MD; Location: [facility]; Service: Cardiovascular CARDIAC CATHETERIZATION N/A 05/31/2024 Procedure: Left Heart Cath w/Grafts; Surgeon: Jake Haile MD; Location: [facility]; Service: Cardiovascular CARDIAC CATHETERIZATION N/A 06/04/2024 Procedure: PCI Planned Complex Intervention; Surgeon: Jake Haile MD; Location: [facility]; Service: Cardiovascular CARDIAC CATHETERIZATION N/A 06/04/2024 Procedure: Angioplasty - Coronary; Surgeon: Jake Haile MD; Location: [facility]; Service: Cardiovascular CARDIAC CATHETERIZATION N/A 07/09/2024 Procedure: PCI Planned Complex Intervention; Surgeon: Jake Haile MD; Location: [facility]; Service: Cardiovascular CARDIAC CATHETERIZATION N/A 07/09/2024 Procedure: LESVIA Stent - Coronary; Surgeon: Jake Haile MD; Location: [facility]; Service: Cardiovascular CARPAL TUNNEL RELEASE CATARACT EXTRACTION W/ INTRAOCULAR LENS IMPLANT Bilateral CORONARY ARTERY BYPASS GRAFT 06/07/2013 JEFFERS-LAD/SVG-OM/SVG-PDA CT COLONOSCOPY 03/12/2023 CT COLONOSCOPY OR CATH PLMT L HRT & ARTS W/NJX & ANGIO IMG S&I N/A 07/09/2024 Procedure: Left Heart Cath; Surgeon: Jake Haile MD; Location: [facility]; Service: Cardiovascular OR ENDOLUMINAL CORONARY IVUS OCT I&R INITIAL VESSEL N/A 07/09/2024 Procedure: IVUS - Coronary; Surgeon: Jake Haile MD; Location: [facility]; Service: Cardiovascular OR L HRT CATH W/NJX L VENTRICULOGRAPHY IMG S&I N/A 06/04/2024 Procedure: Left Heart Cath; Surgeon: Jake Haile MD; Location: [facility]; Service: Cardiovascular OR PRQ TRLUML CORONARY ANGIO/ATHERECT ONE ART/BRNCH N/A 07/09/2024 Procedure: Atherectomy - Coronary; Surgeon: Jake Haile MD; Location: [facility]; Service: Cardiovascular ULNAR NERVE REPAIR Bilateral UMBILICAL HERNIA REPAIR 2005, 2006 Family History Problem Relation Age of Onset Heart disease Father Heart disease Brother Heart disease Brother Social History Tobacco Use Smoking status: Former Current packs/day: 0.00 Types: Cigarettes Quit date: 09/25/1986 Years since quittin.8 Vaping Use Vaping status: Never Used Substance Use Topics Alcohol use: No Drug use: No Patient's Medications New Prescriptions No medications on file Previous Medications AMLODIPINE (NORVASC) 10 MG TABLET Take 1 (one) tablet (10 mg total) by mouth daily . ASPIRIN 81 MG EC TABLET Take 1 (one) tablet (81 mg total) by mouth daily . ESCITALOPRAM OXALATE (LEXAPRO) 10 MG TABLET Take 1 (one) tablet (10 mg total) by mouth daily . FOLIC ACID (FOLVITE) 1 MG TABLET Take 2 (two) tablets (2,000 mcg total) by mouth daily . ISOSORBIDE MONONITRATE (IMDUR) 30 MG 24 HR TABLET Take 2 (two) tablets (60 mg total) by mouth daily . LEVOTHYROXINE (SYNTHROID, LEVOTHROID) 150 MCG TABLET Take 1 (one) tablet (150 mcg total) by mouth daily . LISINOPRIL (PRINIVIL,ZESTRIL) 40 MG TABLET Take 1 (one) tablet (40 mg total) by mouth daily . METHOTREXATE (TREXALL) 2.5 MG TABLET 5 tablets once a week . MV-MIN/FOLIC/K1/LYCOPEN/LUTEIN (CENTRUM SILVER MEN ORAL) Take 50 mg by mouth once daily . PREDNISONE (DELTASONE) 10 MG TABLET Take by mouth as needed . ROSUVASTATIN (CRESTOR) 20 MG TABLET Take 1 (one) tablet (20 mg total) by mouth daily . SERTRALINE (ZOLOFT) 50 MG TABLET Take by mouth daily . TAMSULOSIN (FLOMAX) 0.4 MG CAPSULE Take 1 (one) capsule (0.4 mg total) by mouth daily . TICAGRELOR (BRILINTA) 90 MG TAB TABLET Take 1 (one) tablet (90 mg total) by mouth 2 (two) times a day . VIT C/E/ZN/COPPR/LUTEIN/ZEAXAN (PRESERVISION AREDS-2 ORAL) Take by mouth once daily . Modified Medications Modified Medication Previous Medication METOPROLOL TARTRATE (LOPRESSOR) 25 MG TABLET metoprolol tartrate (LOPRESSOR) 50 MG tablet Take 1 (one) tablet (25 mg total) by mouth 2 (two) times a day . Take 1 (one) tablet (50 mg total) by mouth 2 (two) times a day . Discontinued Medications No medications on file Allergies Allergen Reactions Sulfa (Sulfonamide Antibiotics) Review of Systems Constitutional: Negative for malaise/fatigue. Cardiovascular: Negative for chest pain, dyspnea on exertion, leg swelling and palpitations. Occasionally lightheaded with standing. Neurological: Negative for dizziness. Objective: Physical Exam Constitutional: Appearance: Normal appearance. HENT: Head: Normocephalic and atraumatic. Nose: Nose normal. Eyes: Extraocular Movements: Extraocular movements intact. Pupils: Pupils are equal, round, and reactive to light. Cardiovascular: Rate and Rhythm: Normal rate and regular rhythm. Pulses: Normal pulses. Heart sounds: Normal heart sounds. Pulmonary: Effort: Pulmonary effort is normal. Breath sounds: Normal breath sounds. Abdominal: General: Abdomen is flat. Bowel sounds are normal. Palpations: Abdomen is soft. Musculoskeletal: General: Normal range of motion. Cervical back: Normal range of motion and neck supple. Skin: General: Skin is warm and dry. Neurological: General: No focal deficit present. Mental Status: He is alert and oriented to person, place, and time. Mental status is at baseline. Vitals: Vitals: 07/19/24 0840 BP: (!) 113/44 BP Location: Right arm Patient Position: Sitting BP Cuff Size: X-large Adult Pulse: (!) 52 SpO2: 98% Weight: 87.5 kg (193 lb) Height: 5' 11 Body mass index is 26.92 kg/m . No orders of the defined types were placed in this encounter. Follow Up Ordered: Return in about 6 months (around 01/17/2025). Bala Mcdonough MD Review of Systems Constitutional: Negative for malaise/fatigue. Cardiovascular: Negative for chest pain, dyspnea on exertion, leg swelling and palpitations. Neurological: Negative for dizziness. documented in this encounter [facility] 07-16-2024 Instructions Priyanka Donis MA - 07/16/2024 11:26 AM EDT How to Contact your Care Team: Provider: Dr. Bala Mcdonough MD Renewals Specialist: Cindy Cook RN documented in this encounter [facility] 07-09-2024 Note [facility] PRE-PROCEDURE H&P HISTORY OF PRESENT ILLNESS Mr. Tyra Maddox is a 74 y.o. pleasant male with complex CAD who is referred by Dr. Angelia Rush for revascularization. Patient's medical comorbidity also includes HTN, HLD, asthma, hypothyroidism, macular drusen, and prior history of coronary artery bypass surgery. Tyra was evaluated for decreased exercise tolerance and anginal chest pain. He had a pharmacological stress test which showed moderate size mild to moderately intense partially reversible defect in the basal inferior/infero-lateral, mid inferior/infero-lateral segments. Echocardiogram showed preserved LV systolic function with biatrial enlargement. RV was enlarged with normal function. RVSP was 44 mmHg. Coronary angiography was subsequently performed which showed occluded SVG to RPDA. RCA has chronic total occlusion at the distal segment with R-R acute marginal collateral to RPDA. Ostial left main and proximal LAD has obstructive disease. LAD fills via JEFFERS graft and ramus intermedius fills via SVG graft which retrogradely fills a LCx. Initial attempt to recanalize distal RCA was unsuccessful. Patient is brought in today for a second attempt [employer] [employer] PCI. Current Outpatient Medications Medication Instructions amLODIPine (NORVASC) 10 MG tablet 1 tablet, Oral, Daily aspirin 81 mg, Oral, Daily escitalopram oxalate (LEXAPRO) 10 MG tablet 1 tablet, Oral, Daily folic acid (FOLVITE) 1 MG tablet 2 tablets, Oral, Daily isosorbide mononitrate (IMDUR) 60 mg, Oral, Daily levothyroxine (SYNTHROID, LEVOTHROID) 150 mcg, Oral, Daily lisinopriL (PRINIVIL,ZESTRIL) 40 mg, Oral, Daily methoTREXate (TREXALL) 2.5 MG tablet 5 tablets once a week metoprolol tartrate (LOPRESSOR) 50 mg, Oral, 2 times daily mv-min/folic/K1/lycopen/lutein (CENTRUM SILVER MEN ORAL) 50 mg, Oral, Daily predniSONE (DELTASONE) 10 MG tablet Oral, As needed rosuvastatin (CRESTOR) 20 mg, Oral, Daily sertraline (ZOLOFT) 50 MG tablet Oral, Daily tamsulosin (FLOMAX) 0.4 mg, Oral, Daily ticagrelor (BRILINTA) 90 mg, Oral, 2 times daily vit C/E/Zn/coppr/lutein/zeaxan (PRESERVISION AREDS-2 ORAL) Oral, Daily Sedation Plan: Moderate ASA Classification: ASA 3: A patient with severe systemic disease. Mallampati Score: Class III: Only the soft palate is visible CARDIOVASCULAR & METABOLIC PROBLEMS Coronary artery disease --- 3V CABG with JEFFERS to LAD, SVG-RI, and SVG-RPDA [2013] Hypertension Hyperlipidemia ASSESSMENT & PLAN: 74-year-old gentleman with obstructive RCA and occluded vein graft to RPDA. He has ongoing anginal symptoms. He is brought in for second attempt [employer] PCI. He is euvolemic exam. Resting rate/pressure product is optimal. He is currently on DAPT, DH-CCB, nitrate, ACEI, BB, and moderate intensity statin. The risks and benefits of the procedure was explained. The risks reviewed includes but not limited to vascular damage, hematoma, infection, tamponade, allergic/anaphylactic reaction, acute renal insufficiency, need for emergency surgery, need for pacemaker, OK, stroke, or cardiac arrest/. Patient voiced understanding and agreed to proceed. [employer] [employer] PCI of distal RCA under CS with possible atherectomy today CARDIAC DIAGNOSTICS ECG (I independently reviewed EKG and revealed, 06/29/2020): Sinus bradycardia with occasional PAC. Rate: 47. Incomplete RBBB I personally reviewed other available cardiac imagings (i.e. echo, coronary angiography) and summarized findings under assessment above. OBJECTIVES BP 132/64 Pulse (!) 52 Temp 98.2 degrees F (36.8 degrees C) (Oral) Resp 16 SpO2 96% General Appearance: healthy-looking pleasant gentleman. Not in acute distress Respiratory: good air entry bilaterally. No wheeze or crackles. Cardiovascular: good peripheral pulses. JVP is flat. Regular rate and rhythm. Normal S1-S2. No murmur/gallop/rub. Abdomen: soft. Non-tender. Non-distended. GISELLE: no peripheral edema. Skin: no rash. No cyanosis. No clubbing of fingers. Jake Haile MD, FACC, [facility] Interventional Cardiology/Structural Heart Disease [facility] AUTHENTICATED BY JAKE HAILE, ON 07/09/2024 18:13:42 [facility] 05-23-2024 Note OFFICE CONSULTATION NOTE [facility] [address] [facility] [address] [facility] [phone] Physicians: Emanuel Norwood, KELLI (Family); No ref. provider found (Referring) Subjective: Tyra Maddox is a 74 y.o. male seen in the office today for Follow-up (IMDUR rx f/u and Stress results review) . HPI patient returns for follow-up. He was noted to have prior infarct pattern inferiorly with some stew-infarct ischemia. He is status post triple-vessel bypass. He noted improvement but starting Imdur with improved kind of angina. He is presently on metoprolol and amlodipine additionally Assessment/Plan I think he would benefit from cardiac catheterization to better understand his anatomy and if any interventional therapy would be more desirable than medical therapy Stress nuclear scan 04/17/2024 1. Overall this is an abnormal pharmacologic stress SPECT myocardial perfusion imaging study with evidence of prior inferior/inferolateral infarct with small area of stew-infarct ischemia as below. 2. No abnormal ST/T wave changes with injection of lexiscan. 3. There is a medium sized, mostly mild to moderate intensity partially reversible defect of the basal inferior and inferolateral, mid inferior and inferolateral segments. Defect persists on upright imaging. 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 4. Overall left ventricular systolic function was normal with hypokinesis of the septal wall likely related to prior open heart surgery. Gated SPECT imaging reveals normal myocardial wall thickening. Post stress left ventricular ejection fraction is normal, 73 %. Resting left ventricular ejection fraction is normal, 69 %. Left ventricular cavity size is normal. 5. Overall intermediate-risk study based on SCAI criteria (1-3% predicted annual cardiac mort Echo . 1ml of Definity IV contrast was used to enhance endocardial definition. 2. Normal LV chamber size. Systolic function is normal with no regional wall motion abnormalities. Estimated ejection fraction of 55 to 60%. 3. Right ventricular chamber dimension is enlarged. Right ventricular systolic function is normal. 4. There is biatrial enlargement. 5. There is no hemodynamically significant valve disease. 6. There is pulmonary hypertension, estimated right ventricle systolic pressure is 44 mmHg. No problem-specific Assessment & Plan notes found for this encounter. Follow Up Ordered: No follow-ups on file. Patient's Medications New Prescriptions No medications on file Previous Medications AMLODIPINE (NORVASC) 10 MG TABLET Take 1 (one) tablet (10 mg total) by mouth daily . ASPIRIN 81 MG EC TABLET Take 1 (one) tablet (81 mg total) by mouth daily . ESCITALOPRAM OXALATE (LEXAPRO) 10 MG TABLET Take 1 (one) tablet (10 mg total) by mouth daily . FOLIC ACID (FOLVITE) 1 MG TABLET Take 2 (two) tablets (2,000 mcg total) by mouth daily . ISOSORBIDE MONONITRATE (IMDUR) 30 MG 24 HR TABLET Take 1 (one) tablet (30 mg total) by mouth daily . LEVOTHYROXINE (SYNTHROID, LEVOTHROID) 150 MCG TABLET Take 1 (one) tablet (150 mcg total) by mouth daily . LISINOPRIL (PRINIVIL,ZESTRIL) 40 MG TABLET Take 1 (one) tablet (40 mg total) by mouth daily . METHOTREXATE (TREXALL) 2.5 MG TABLET 5 tablets once a week . METOPROLOL TARTRATE (LOPRESSOR) 50 MG TABLET Take 1 (one) tablet (50 mg total) by mouth 2 (two) times a day . ROSUVASTATIN (CRESTOR) 20 MG TABLET Take 1 (one) tablet (20 mg total) by mouth daily . TAMSULOSIN (FLOMAX) 0.4 MG CAPSULE Take 1 (one) capsule (0.4 mg total) by mouth daily . VIT C/E/ZN/COPPR/LUTEIN/ZEAXAN (PRESERVISION AREDS-2 ORAL) Take by mouth once daily . Modified Medications No medications on file Discontinued Medications No medications on file Histories: Past Medical History: Diagnosis Date Asthma CAD (coronary artery disease) Degenerative joint disease of cervical and lumbar spine Hyperlipidemia Hypertension Hypothyroidism Past Surgical History: Procedure Laterality Date CARDIAC CATHETERIZATION 05/17/2013 Severe triple vessel CAD/EF of 59% CARPAL TUNNEL RELEASE CATARACT EXTRACTION W/ INTRAOCULAR LENS IMPLANT Bilateral CORONARY ARTERY BYPASS GRAFT 06/07/2013 JEFFERS-LAD/SVG-OM/SVG-PDA CT COLONOSCOPY 03/12/2023 CT COLONOSCOPY ULNAR NERVE REPAIR Bilateral UMBILICAL HERNIA REPAIR 2005, 2006 Family History Problem Relation Age of Onset Heart disease Father Heart disease Brother Heart disease Brother Social History Tobacco Use Smoking status: Former Current packs/day: 0.00 Types: Cigarettes Quit date: 09/25/1986 Years since quittin.6 Vaping Use Vaping status: Never Used Substance Use Topics Alcohol use: No Drug use: No Allergies Allergen Reactions S (more content not included)... [facility] 04-17-2024 Note OFFICE CONSULTATION NOTE [facility] [address] [facility] [address] [facility] [phone] Physicians: Emanuel Norwood CNP (Family); Emanuel Norwood CNP (Referring) Subjective: Tyra Maddox is a 74 y.o. male seen in the office today for Establish Care (Per Emanuel Norwood for decreased exercise tolerance) . HPI patient is noted for the past several months exertionally induced central chest pain radiating to the back it is a burning sensation is much like what he had prior to his bypass surgery in 2013 patient had grafts to ramus, LAD and was stated he had a enlarged heart Patient has rheumatoid arthritis which limits his exercise ability he has hypertension and hyperlipidemia Assessment/Plan probable recurrent angina. He will need a cardiac catheterization in any regards. But will perform a stress nuclear scan pharmacologic type because of his rheumatoid arthritis. He is also to have an echo. The there was comment on his operative report that he had an enlarged heart ECG: Sinus bradycardia Reviewed personally No problem-specific Assessment & Plan notes found for this encounter. Follow Up Ordered: No follow-ups on file. Patient's Medications New Prescriptions No medications on file Previous Medications AMLODIPINE (NORVASC) 10 MG TABLET Take 1 (one) tablet (10 mg total) by mouth daily . ASPIRIN 81 MG EC TABLET Take 1 (one) tablet (81 mg total) by mouth daily . ESCITALOPRAM OXALATE (LEXAPRO) 10 MG TABLET Take 1 (one) tablet (10 mg total) by mouth daily . FOLIC ACID (FOLVITE) 1 MG TABLET Take 2 (two) tablets (2,000 mcg total) by mouth daily . LEVOTHYROXINE (SYNTHROID, LEVOTHROID) 150 MCG TABLET Take 1 (one) tablet (150 mcg total) by mouth daily . LISINOPRIL (PRINIVIL,ZESTRIL) 40 MG TABLET Take 1 (one) tablet (40 mg total) by mouth daily . METHOTREXATE (TREXALL) 2.5 MG TABLET 5 tablets once a week . METOPROLOL TARTRATE (LOPRESSOR) 50 MG TABLET Take 1 (one) tablet (50 mg total) by mouth 2 (two) times a day . ROSUVASTATIN (CRESTOR) 20 MG TABLET Take 1 (one) tablet (20 mg total) by mouth daily . TAMSULOSIN (FLOMAX) 0.4 MG CAPSULE Take 1 (one) capsule (0.4 mg total) by mouth daily . VIT C/E/ZN/COPPR/LUTEIN/ZEAXAN (PRESERVISION AREDS-2 ORAL) Take by mouth once daily . Modified Medications No medications on file Discontinued Medications FUROSEMIDE (LASIX) 20 MG TABLET Take 20 mg by mouth daily. GABAPENTIN (NEURONTIN) 300 MG CAPSULE Take 300 mg by mouth 3 (three) times a day. LEVOTHYROXINE (SYNTHROID, LEVOTHROID) 100 MCG TABLET Take 112 mcg by mouth daily . METOPROLOL TARTRATE (LOPRESSOR) 25 MG TABLET Take 25 mg by mouth 2 (two) times a day. MOMETASONE FUROATE (ASMANEX HFA INHL) Inhale daily. Histories: Past Medical History: Diagnosis Date Asthma CAD (coronary artery disease) Degenerative joint disease of cervical and lumbar spine Hyperlipidemia Hypertension Hypothyroidism Past Surgical History: Procedure Laterality Date CARDIAC CATHETERIZATION 05/17/2013 Severe triple vessel CAD/EF of 59% CARPAL TUNNEL RELEASE CATARACT EXTRACTION W/ INTRAOCULAR LENS IMPLANT Bilateral CORONARY ARTERY BYPASS GRAFT 06/07/2013 [facility]-PDA CT COLONOSCOPY 03/12/2023 CT COLONOSCOPY ULNAR NERVE REPAIR Bilateral UMBILICAL HERNIA REPAIR 2005, 2006 Family History Problem Relation Age of Onset Heart disease Father Heart disease Brother Social History Tobacco Use Smoking status: Former Current packs/day: 0.00 Types: Cigarettes Quit date: 09/25/1986 Years since quittin.5 Vaping Use Vaping status: Never Used Substance Use Topics Alcohol use: No Drug use: No Allergies Allergen Reactions Sulfa (Sulfonamide Antibiotics) Review of Systems Constitutional: Negative. HENT: Negative. Eyes: Negative. Cardiovascular: Negative for palpitations. Respiratory: Negative. Endocrine: Negative. Skin: Negative. Musculoskeletal: Negative. Gastrointestinal: Negative. Genitourinary: Negative. Neurological: Negative. Psychiatric/Behavioral: Negative. All other systems reviewed and are negative. Overview of Problems Addressed: No problems updated. Objective: Vitals: BP 114/61 (BP Location: Left arm) Pulse (!) 55 Ht 5' 10 Wt 86.2 kg (190 lb) SpO2 98% BMI 27.26 kg/m Physical Exam Constitutional: Appearance: Normal appearance. HENT: Head: Normocephalic and atraumatic. Nose: Nose normal. Eyes: Extraocular Movements: Extraocular movements intact. Pupils: Pupils are equal, round, and reactive to light. Cardiovascular: Rate and Rhythm: Normal rate and regular rhythm. Pulses: Normal pulses. Heart sounds: Normal heart sounds. Pulmonary: Effort: Pulmonary effort is normal. Breath sounds: Normal breath sounds. Abdominal: General: Abdomen is flat. Bowel sounds are normal. (more content not included)... [facility] 12-13-2023 History of Present illness Narrative Subjective Patient ID: Tyra Maddox is a 73 y.o. male. HPI Patient has hx of elevated PSA. Most recent PSA was 11.08 on 12/16. Prior PSA was 10.40 on 06/17. Prior PSA [...] is chronic. Medication did not help this Review of Systems Constitutional: Negative for chills and fever. HENT: Negative. Eyes: Negative. Respiratory: Negative for cough and shortness of breath. Cardiovascular: Negative for chest pain and leg swelling. Gastrointestinal: Negative for nausea. Endocrine: Negative. Genitourinary: Negative for difficulty urinating. Negative except for documented in HPI Allergic/Immunologic: Negative. Neurological: Alert & oriented X 3 Hematological: Denies blood thinners Psychiatric/Behavioral: Negative. Objective Physical Exam Vitals and nursing note reviewed. Constitutional: General: He is not in acute distress. Appearance: Normal appearance. Pulmonary: Effort: Pulmonary effort is normal. Abdominal: Tenderness: There is no abdominal tenderness. Genitourinary: Comments: Kidneys non palpable bilaterally Bladder non palpable or tender Scrotum no mass, No hydrocele Epididymis- No spermatocele. Non Tender. Testicles: No mass. WNL Urethra: No discharge Penis within normal limits... No lesions. circumcised Prostate - symmetric, no nodules. Smooth Benign Seminal Vesicals: No mass. Sphincter tone: normal Neurological: Mental Status: He is alert. Assessment/Plan Diagnoses and all orders for this visit: Benign prostatic hyperplasia (BPH) with urinary urgency Elevated PSA Erectile dysfunction, unspecified erectile dysfunction type Nocturia Benign prostatic hyperplasia with urinary frequency - tamsulosin (Flomax) 0.4 mg 24 hr capsule; Take 1 capsule (0.4 mg) by mouth once daily at bedtime. All available PSA values reviewed, Options discussed. Questions answered. Past MRI reviewed x 2-Discussed repeat MRI Pros and cons of prostate biopsy reviewed. Other options discussed. Questions answered Past Bx reviewed Diet changes for prostate health discussed and educational information given. Pros/Cons of prostate health supplements discussed. Treatment options for LUTS reviewed Flomax refilled Discussed timed voiding. Discussed fluid and caffeine intake Treatment options for ED reviewed. Lifestyle change to help prevent UTIs discussed. Encouraged fluid intake. F/U 6 months with PSA and to determine if MRI is indicated documented in this encounter [facility] Work Phone: 09-14-2023 Note PROCEDURE: WRIST LEF T COMPLETE, [...] union. 2. Soft tissue swelling. 3. Osteoarthrosis. [facility] 04-15-2023 History of Present illness Narrative [...] is chronic. Medication did not help this QI-Kshznmp-Xlqitce Work Phone: 05-12-2022 Chief complaint Narrative - Reported An interactive audio and video telecommunication system which permits real time communications between the patient (at the originating site) and provider (at the distant site) was utilized to provide this telehealth service.Verbal consent was requested and obtained from TYRA MDADOX on this date, 05/12/2022 09:45 AM , for a telehealth visit.Prostate MRI results IN-Mfvnwtq-Skkindts [facility] 232 DO Work Phone: 04-15-2022 History [...] is chronic. Medication did not help this MI-Itsxxom-Sakfhlz Work Phone: 04-15-2022 History of Present illness [...] is chronic. Medication did not help this IL-Vgavyog-Uekskzzf [facility] 232 DO Work Phone: 08-18-2021 History of Present illness Narrative Dear Mrs Norwood,I saw your patient Mr. Tyra Maddox who you referred for surgical consultation [...] a sestamibi scan. This was completed in [facility] but was negative for any uptake to [...] troubles with his voice.Family history no hyperparathyroidism. MP-Lmraskb-Vvxzatx 2100 Work Phone: 08-14-2021 History of Present [...] is chronic. Medication did not help this CP-Giqyppd-Lzzxceg Work Phone: 03-15-2021 History of Present illness [...] is chronic. 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 documented in this encounter [facility] Work Phone: Evaluation note* Diagnosis Benign prostatic hyperplasia (BPH) with urinary urgency Elevated PSA Elevated prostate specific antigen (PSA) Erectile dysfunction, unspecified erectile dysfunction type Nocturia Benign prostatic hyperplasia with urinary frequency documented in this encounter [facility] Work Phone: Evaluation note* Diagnosis Rheumatoid arthritis, involving unspecified site, unspecified whether rheumatoid factor present (HCC)- Primary S/P CABG x 3 Postsurgical aortocoronary bypass status Coronary artery disease involving [place] coronary artery of [place] heart without angina pectoris Sinus bradycardia Other specified cardiac dysrhythmias documented in this encounter [facility] course Narrative No data available for this section [facility] Hospital Discharge instructions No data available for this section [facility] Progress note No data available for this section [facility] Summary Purpose Family History No Family [...] Status:Active Advance Directives No Advanced Directives Records Found Date Activated Date Inactivated Comments 07/09/2024 10:01 AM 07/09/2024 2:45 PM Date Activated Date Inactivated Comments 06/04/2024 9:52 AM 06/04/2024 1:57 PM Date Activated Date Inactivated Comments 05/31/2024 6:11 AM 05/31/2024 11:25 AM Chief Complaint Prostate MRI results6 MO W/ psa6 month f/u w/PSA6 mo w/ psa Reason for Referral Specialty Diagnoses / Procedures Referred By Vadim spears Referred To Contact Radiology Diagnoses Other group home (current) drug therapy Procedures US abdomen limited liver Jeanine Montes MD [address] [facility], [place] [id number] Referral ID Status Reason Start Date Expiration Date Visits Requested Visits Authorized [id number] Pending Review Perform Procedure 3 07/17/2024 1 1 Additional Source Comments (unrecognized sect ion and content) No Status Records FoundNo Status Records FoundNo Status Records FoundNo Status Records FoundNo Status Records FoundNo Status Records FoundNo Status Records FoundNo Status Records FoundNo Status Records FoundNo Status Records FoundNo Status Records Found INFORMATION SOURCE (unrecogn ized section and content) DATE CREATED AUTHOR 03/13/2019 [facility] DATE CREATED AUTHOR AUTHOR'S ORGANIZ ATION 01/03/[address] [facility] ([place]) DATE CREATED AUTHOR AUTHOR'S ORGANIZ ATION 11/08/2022 [facility] DATE CREATED AUTHOR AUTHOR'S ORGANIZ ATION 06/16/2023 [facility] DATE CREATED AUTHOR AUTHOR'S ORGANIZ ATION 06/16/2023 [employer] DATE CREATED AUTHOR AUTHOR'S ORGANIZ ATION 11/03/2023 [facility] DATE CREATED AUTHOR AUTHOR'S ORGANIZ ATION 06/03/2024 [facility] DATE CREATED AUTHOR AUTHOR'S ORGANIZ ATION 06/15/2024 [facility] DATE CREATED AUTHOR AUTHOR'S ORGANIZ ATION 06/16/2024 [facility] DATE CREATED AUTHOR AUTHOR'S ORGANIZ ATION 07/18/2024 [facility] DATE CREATED AUTHOR AUTHOR'S ORGANIZ ATION 07/20/2024 [facility] Team (unrecognized sect ion and content) Ore Crusher Relationship Specialty Start Date End Date Jose De Jesus Ortiz MD [address] [place] [address] PCP - General Family Medicine 07/20/23 Ore Crusher Relationship Specialty Start Date End Date Jose De Jesus Ortiz MD [address] [place] [address] PCP - General Family Medicine 07/20/23 Ore Crusher Relationship Specialty Start Date End Date Jose De Jesus Ortiz MD [address] [place] [address] PCP - General Family Medicine 07/20/23 Ore Crusher Relationship Specialty Start Date End Date Emanuel Norwood, GARNETT FEEDER [address] [place] [id number] PCP - General Nurse Practitioner 03/15/24 Reason for Visit (unrecogniz ed section and content) Specialty Diagnoses / Procedures Referred By Contjessica t Referred To Contact Radiology 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 Procedures US abdomen limited liver Jeanine Montes MD [address] [place] [address] [facility], [address] [address] Referral ID Status Reason Start Date Expiration Date Visits Requested Visits Authorized [id number] Pending Review Perform Procedure 3 07/17/2024 1 1 Specialty Diagnoses / Procedures Referred By Vadim spears Referred To Contact Radiology Diagnoses Other group home (current) drug therapy Procedures US abdomen limited liver Jeanine Montes MD [address] [place] [address] Reason Comments 6 month with psa Reason Comments Follow-up Post PCI - no compla ints FOR RECORDS PERTAINING TO PATIENTS WHO ARE [...] BE BASED ON THE PRIMARY CLINICAL RECORDS. [employer] provides no warranty or guarantee of the accuracy or completeness of information in this document.
[2024-07-22 15:43] LABS: Absolute Lymphocyte Count 0.56 X10^3/uL (0.83-4.51); Absolute Neutrophil Count 5.5 X10^3/uL (2.0-7.7); Basophil# 0.04 X10^3/uL; Basophil% 0.6 % (0-1); Eosinophil# 0.08 X10^3/uL; Eosinophils% 1.2 % (0-5); Hematocrit 39.8 % (40-54); Hemoglobin 13.5 g/dL (13.0-16.5); Lymphocyte # 0.56 X10^3/ul (0.83-4.51); Lymphocyte % 8.4 % (19-41); Mean Corp Hgb Conc 33.9 g/dL (32-36); Mean Corpuscular Hgb 32.5 pg (27.0-32.0); Mean Corpuscular Volume 95.7 fL (80-94); Mean Platelet Vol. 10.3 fl (6.2-12.0); Monocyte# 0.43 X10^3/uL; Monocyte% 6.4 % (0-10); NRBC Flagged by Analyzer 0 % (0-5); Neutrophil # 5.48 X10^3/uL (2.7-7.7); Neutrophil % 81.8 % (47-70); POSITIVE DIFFERENTIAL YES; Platelet Count 150 K/mm3 (150-450); RBC Distribution Width CV 13.6 % (11.6-14.6); RBC Distribution Width SD 47.4 fl (35.1-43.9); Red Blood Count 4.16 M/mm3 (4.6-6.2); White Blood Count 6.7 K/mm3 (4.4-11.0)
[2024-07-22 15:58] LABS: ALB/GLOB Ratio 1.3 RATIO (0.9-2.4); AST(SGOT) 29 U/L (15-37); Alanine Aminotransfer ALT/SGPT 47 U/L (16-61); Albumin, Serum 3.9 g/dL (3.2-5.0); Alkaline Phosphatase 119 U/L (45-117); Anion Gap 6 (5-15); BUN 21 mg/dL (7-18); BUN/Creat Ratio 21.4 RATIO (10-20); Chloride 107 mmol/L (98-107); Creatinine, Serum 0.98 mg/dL (0.70-1.30); EST Glomerular Filtration Rate 80 mL/min (>60); Est Glom Filt Rate - Afr Amer 96 mL/min (>60); Globulin 2.9 g/dL (2.2-4.2); Glucose 131 mg/dL (74-106); Potassium 3.9 mmol/L (3.5-5.1); Protein, Total 6.8 g/dL (6.4-8.2); Sodium Level 141 mmol/L (136-145)
== END | disposition home or self-care (01) ==
LOC: MTLAB 11:06
PROVIDERS: PCP Nurse Practitioner Family; Referring Provider Internal Medicine Rheumatology; Visit Provider Internal Medicine Rheumatology
DX: M06.4 Inflammatory polyarthropathy (principal); Z79.899 Other long term (current) drug therapy
CPT/HCPCS: 36415; 80053; 85025

== ENCOUNTER → 2024-10-17 | Outpatient (CLI) | payer MEDICARE, MEDICAID, SELFPAY ==
[2024-10-17 15:07] LABS: Absolute Lymphocyte Count 0.63 X10^3/uL (0.83-4.51); Absolute Neutrophil Count 7.2 X10^3/uL (2.0-7.7); Basophil# 0.07 X10^3/uL; Basophil% 0.8 % (0-1); Eosinophil# 0.14 X10^3/uL; Eosinophils% 1.5 % (0-5); Hematocrit 44.6 % (40-54); Hemoglobin 14.5 g/dL (13.0-16.5); Lymphocyte # 0.63 X10^3/ul (0.83-4.51); Lymphocyte % 6.8 % (19-41); Mean Corp Hgb Conc 32.5 g/dL (32-36); Mean Corpuscular Hgb 31.7 pg (27.0-32.0); Mean Corpuscular Volume 97.4 fL (80-94); Mean Platelet Vol. 10.5 fl (6.2-12.0); Monocyte% 8.7 % (0-10); NRBC Flagged by Analyzer 0 % (0-5); Neutrophil # 7.24 X10^3/uL (2.7-7.7); Neutrophil % 78.4 % (47-70); Platelet Count 125 K/mm3 (150-450); RBC Distribution Width CV 13.1 % (11.6-14.6); RBC Distribution Width SD 46.9 fl (35.1-43.9); Red Blood Count 4.58 M/mm3 (4.6-6.2); White Blood Count 9.2 K/mm3 (4.4-11.0)
[2024-10-17 15:37] LABS: ALB/GLOB Ratio 1.2 RATIO (0.9-2.4); AST(SGOT) 25 U/L (15-37); Alanine Aminotransfer ALT/SGPT 47 U/L (16-61); Albumin, Serum 3.8 g/dL (3.2-5.0); Alkaline Phosphatase 112 U/L (45-117); Anion Gap 3 (5-15); BUN 19 mg/dL (7-18); BUN/Creat Ratio 20.9 RATIO (10-20); Calcium,Total 10.6 mg/dL (8.5-10.1); Chloride 106 mmol/L (98-107); Creatinine, Serum 0.91 mg/dL (0.70-1.30); EST Glomerular Filtration Rate 87 mL/min (>60); Est Glom Filt Rate - Afr Amer 105 mL/min (>60); Globulin 3.1 g/dL (2.2-4.2); Glucose 150 mg/dL (74-106); Potassium 4.5 mmol/L (3.5-5.1); Protein, Total 6.9 g/dL (6.4-8.2); Sodium Level 139 mmol/L (136-145)
== END | disposition home or self-care (01) ==
LOC: MTLAB 11:11
PROVIDERS: PCP Nurse Practitioner Family; Referring Provider Internal Medicine Rheumatology; Visit Provider Internal Medicine Rheumatology
DX: M06.4 Inflammatory polyarthropathy (principal); Z79.899 Other long term (current) drug therapy
CPT/HCPCS: 36415; 80053; 85025

== ENCOUNTER → 2025-01-09 | Outpatient (CLI) | payer MEDICARE, MEDICAID, SELFPAY ==
[2025-01-09 11:00] LABS: Absolute Neutrophil Count 3.1 X10^3/uL (2.0-7.7); Basophil# 0.04 X10^3/uL; Basophil% 0.8 % (0-1); Eosinophil# 0.25 X10^3/uL; Eosinophils% 5.1 % (0-5); Hematocrit 39.9 % (40-54); Hemoglobin 13.5 g/dL (13.0-16.5); Lymphocyte % 18.4 % (19-41); Mean Corp Hgb Conc 33.8 g/dL (32-36); Mean Corpuscular Volume 94.5 fL (80-94); Monocyte# 0.58 X10^3/uL; Monocyte% 11.8 % (0-10); NRBC Flagged by Analyzer 0 % (0-5); Neutrophil # 3.11 X10^3/uL (2.7-7.7); Neutrophil % 63.5 % (47-70); Platelet Count 161 K/mm3 (150-450); RBC Distribution Width CV 13.2 % (11.6-14.6); RBC Distribution Width SD 45.1 fl (35.1-43.9); Red Blood Count 4.22 M/mm3 (4.6-6.2); White Blood Count 4.9 K/mm3 (4.4-11.0)
[2025-01-09 11:18] LABS: Ionized Calcium Order ORDER TUBE
[2025-01-09 11:31] LABS: PTHIN 83 pg/mL (11-61)
[2025-01-09 11:38] LABS: Microalbumin,Random Urine 29.8 mg/L (NO RANGE EST.)
[2025-01-09 11:48] LABS: ALB/GLOB Ratio 1.8 RATIO (0.9-2.4); AST(SGOT) 54 U/L (<=37); Alanine Aminotransfer ALT/SGPT 44 U/L (<=46); Albumin, Serum 4.2 g/dL (3.4-4.8); Alkaline Phosphatase 111 U/L (40-129); Anion Gap 8 (5-15); BUN 26 mg/dL (4-19); BUN/Creat Ratio 27.4 RATIO (10-20); Calcium,Total 10.6 mg/dL (7.6-11.0); Carbon Dioxide 27.7 mmol/L (21.0-32.0); Chloride 105 mmol/L (98-108); Creatinine, Serum 0.96 mg/dL (0.70-1.20); EST Glomerular Filtration Rate 84 (>60); Globulin 2.4 g/dL (2.2-4.2); Glucose 123 mg/dL (70-99); Magnesium 2.5 mg/dL (1.5-2.2); Protein, Total 6.6 g/dL (5.9-8.4); Sodium Level 141 mmol/L (133-145); Total Bilirubin 0.39 mg/dL (0.00-1.30)
[2025-01-09 11:49] LABS: Free T3 3.5 pg/mL (2.18-3.98); Thyroid Stim Hormone (TSH) 0.597 uIU/mL (0.300-4.200); Vitamin D,25 Hydroxy 25.5 ng/mL (30-100)
[2025-01-09 11:52] LABS: Hemoglobin A1c 6.7 % (<=5.6)
[2025-01-10 15:08] LABS: Calcium, Urine 1.9 mg/dL (Not Estab.)
[2025-01-10 23:11] LABS: Ionized Calcium 1.38 mmol/L (1.09-1.30)
== END | disposition home or self-care (01) ==
LOC: LAB 10:07
PROVIDERS: PCP Nurse Practitioner Family; Referring Provider Internal Medicine Rheumatology; Visit Provider Internal Medicine Endocrinology, Diabetes & Metabolism
DX: M06.4 Inflammatory polyarthropathy (principal); E11.9 Type 2 diabetes mellitus without complications; Z79.899 Other long term (current) drug therapy; E21.3 Hyperparathyroidism, unspecified; I10 Essential (primary) hypertension; E55.9 Vitamin D deficiency, unspecified
CPT/HCPCS: 80053; 82043; 82306; 82330; 82340; 82570; 83036; 83735; 83970; 84100; 84439; 84443; 84481; 85025

== ENCOUNTER → 2025-02-13 | Outpatient (CLI) | payer MEDICARE, SELFPAY ==
[2025-02-13 10:46] LABS: Absolute Lymphocyte Count 0.95 X10^3/uL (0.83-4.51); Absolute Neutrophil Count 2.2 X10^3/uL (2.0-7.7); Basophil# 0.04 X10^3/uL; Basophil% 1.1 % (0-1); Eosinophils% 2.7 % (0-5); Hematocrit 40.9 % (40-54); Hemoglobin 13.9 g/dL (13.0-16.5); Lymphocyte # 0.95 X10^3/ul (0.83-4.51); Lymphocyte % 25.6 % (19-41); Mean Corpuscular Hgb 32.1 pg (27.0-32.0); Mean Corpuscular Volume 94.5 fL (80-94); Mean Platelet Vol. 9.9 fl (6.2-12.0); Monocyte# 0.45 X10^3/uL; Monocyte% 12.1 % (0-10); NRBC Flagged by Analyzer 0 % (0-5); Neutrophil # 2.16 X10^3/uL (2.7-7.7); Neutrophil % 58.2 % (47-70); Platelet Count 145 K/mm3 (150-450); RBC Distribution Width CV 12.9 % (11.6-14.6); RBC Distribution Width SD 45.1 fl (35.1-43.9); Red Blood Count 4.33 M/mm3 (4.6-6.2); White Blood Count 3.7 K/mm3 (4.4-11.0)
[2025-02-13 12:11] LABS: ALB/GLOB Ratio 1.7 RATIO (0.9-2.4); AST(SGOT) 25 U/L (<=37); Alanine Aminotransfer ALT/SGPT 16 U/L (<=46); Albumin, Serum 4.4 g/dL (3.4-4.8); Alkaline Phosphatase 107 U/L (40-129); Anion Gap 11 (5-15); BUN 11 mg/dL (4-19); BUN/Creat Ratio 13.3 RATIO (10-20); Calcium,Total 10.7 mg/dL (7.6-11.0); Chloride 106 mmol/L (98-108); Cholesterol 153 mg/dL (<=200); Creatinine, Serum 0.84 mg/dL (0.70-1.20); EST Glomerular Filtration Rate 92 (>60); Globulin 2.5 g/dL (2.2-4.2); Glucose 109 mg/dL (70-99); High Density Lipoprotein 45 mg/dL; Low Density Lipoprotein Calc. 102 mg/dL; Potassium 4.1 mmol/L (3.3-5.1); Protein, Total 6.9 g/dL (5.9-8.4); Sodium Level 141 mmol/L (133-145); Total Bilirubin 0.53 mg/dL (0.00-1.30); Triglycerides 30 mg/dL; Very Low Density Lipoprotein 6 mg/dL (5-40); cholesterol:hdl ratio screen 3.41
== END | disposition home or self-care (01) ==
LOC: MTLAB 08:35
PROVIDERS: PCP Nurse Practitioner Family; Referring Provider Nurse Practitioner Family; Visit Provider Nurse Practitioner Family
DX: I10 Essential (primary) hypertension (principal); M06.4 Inflammatory polyarthropathy; E03.9 Hypothyroidism, unspecified; M47.892 Other spondylosis, cervical region; H35.30 Unspecified macular degeneration; I25.10 Atherosclerotic heart disease of native coronary artery without angina pectoris; E83.52 Hypercalcemia; E78.5 Hyperlipidemia, unspecified; H04.123 Dry eye syndrome of bilateral lacrimal glands; Z79.899 Other long term (current) drug therapy; Z12.5 Encounter for screening for malignant neoplasm of prostate
CPT/HCPCS: 36415; 80053; 80061; 84153; 84439; 84443; 85025; G0103

== ENCOUNTER → 2025-04-10 | Outpatient (CLI) | payer MEDICARE, SELFPAY ==
[2025-04-10 10:25] LABS: Ionized Calcium Order ORDER TUBE
[2025-04-10 11:01] LABS: Creatinine, Urine (random) 134.00 mg/dL (39.00-259.00); Microalbumin,Random Urine < 12.0 mg/L (<20 mg/L)
[2025-04-10 13:08] LABS: PTHIN 58 pg/mL (11-61)
[2025-04-10 13:16] LABS: AST(SGOT) 25 U/L (<=37); Alanine Aminotransfer ALT/SGPT 15 U/L (<=46); Albumin, Serum 4.4 g/dL (3.4-4.8); Alkaline Phosphatase 116 U/L (40-129); Anion Gap 13 (5-15); BUN 15 mg/dL (4-19); BUN/Creat Ratio 17.5 RATIO (10-20); Calcium,Total 10.8 mg/dL (7.6-11.0); Carbon Dioxide 24.0 mmol/L (21.0-32.0); Chloride 103 mmol/L (98-108); Cholesterol 162 mg/dL (<=200); Free T3 2.8 pg/mL (2.18-3.98); Globulin 2.9 g/dL (2.2-4.2); Glucose 108 mg/dL (70-99); Low Density Lipoprotein Calc. 97 mg/dL; Potassium 4.0 mmol/L (3.3-5.1); Triglycerides 64 mg/dL; Very Low Density Lipoprotein 13 mg/dL (5-40); Vitamin D,25 Hydroxy 31.3 ng/mL (30-100); cholesterol:hdl ratio screen 3.10
[2025-04-12 12:08] LABS: Calcium, Urine 9.3 mg/dL (Not Estab.)
== END | disposition home or self-care (01) ==
PROVIDERS: PCP Nurse Practitioner Family; Referring Provider Internal Medicine Endocrinology, Diabetes & Metabolism; Visit Provider Internal Medicine Endocrinology, Diabetes & Metabolism
DX: E21.3 Hyperparathyroidism, unspecified (principal); E11.9 Type 2 diabetes mellitus without complications; I10 Essential (primary) hypertension; E03.9 Hypothyroidism, unspecified; E55.9 Vitamin D deficiency, unspecified
CPT/HCPCS: 80053; 80061; 82043; 82306; 82330; 82340; 82570; 83036; 83970; 84439; 84443; 84481

== ENCOUNTER → 2025-04-11 | Outpatient (CLI) | payer MEDICARE, SELFPAY | END | disposition home or self-care (01) | PROVIDERS: PCP Nurse Practitioner Family; Referring Provider Internal Medicine Endocrinology, Diabetes & Metabolism; Visit Provider Internal Medicine Endocrinology, Diabetes & Metabolism | DX: E21.3 Hyperparathyroidism, unspecified (principal); E11.9 Type 2 diabetes mellitus without complications; I10 Essential (primary) hypertension; E55.9 Vitamin D deficiency, unspecified; E03.9 Hypothyroidism, unspecified ==

== ENCOUNTER → 2025-05-07 | Outpatient (CLI) | payer MEDICARE, SELFPAY ==
[2025-05-07 12:42] LABS: Hematocrit 42.4 % (40-54); Hemoglobin 14.4 g/dL (13.0-16.5); Immature Granulocytes Count 0.020 X10^3/uL (0.0-0.0); Mean Corp Hgb Conc 34.0 g/dL (32-36); Mean Corpuscular Volume 95.1 fL (80-94); Mean Platelet Vol. 10.7 fl (6.2-12.0); NRBC Flagged by Analyzer 0 % (0-5); Platelet Count 141 K/mm3 (150-450); RBC Distribution Width CV 13.0 % (11.6-14.6); RBC Distribution Width SD 45.4 fl (35.1-43.9); Red Blood Count 4.46 M/mm3 (4.6-6.2); White Blood Count 4.1 K/mm3 (4.4-11.0)
[2025-05-07 13:00] LABS: AST(SGOT) 24 U/L (<=37); Alanine Aminotransfer ALT/SGPT 19 U/L (<=46); Albumin, Serum 4.4 g/dL (3.4-4.8); Alkaline Phosphatase 120 U/L (40-129); Anion Gap 10 (5-15); BUN 22 mg/dL (4-19); BUN/Creat Ratio 23.0 RATIO (10-20); Calcium,Total 10.7 mg/dL (7.6-11.0); Carbon Dioxide 26.0 mmol/L (21.0-32.0); Chloride 107 mmol/L (98-108); Globulin 2.5 g/dL (2.2-4.2); Glucose 174 mg/dL (70-99); Potassium 4.0 mmol/L (3.3-5.1)
== END | disposition home or self-care (01) ==
LOC: MTLAB 09:47
PROVIDERS: PCP Nurse Practitioner Family; Referring Provider Internal Medicine Rheumatology; Visit Provider Internal Medicine Rheumatology
DX: M06.4 Inflammatory polyarthropathy (principal); Z79.899 Other long term (current) drug therapy
CPT/HCPCS: 36415; 80053; 85025

== ENCOUNTER → 2025-08-06 | Outpatient (CLI) | payer MEDICARE, SELFPAY ==
[2025-08-06 12:21] LABS: Hematocrit 42.9 % (40-54); Hemoglobin 14.5 g/dL (13.0-16.5); Immature Granulocytes Count 0.030 X10^3/uL (0.0-0.0); Mean Corp Hgb Conc 33.8 g/dL (32-36); Mean Corpuscular Volume 96.6 fL (80-94); Mean Platelet Vol. 10.3 fl (6.2-12.0); NRBC Flagged by Analyzer 0 % (0-5); Platelet Count 154 K/mm3 (150-450); RBC Distribution Width CV 13.4 % (11.6-14.6); RBC Distribution Width SD 47.5 fl (35.1-43.9); Red Blood Count 4.44 M/mm3 (4.6-6.2); White Blood Count 5.4 K/mm3 (4.4-11.0)
[2025-08-06 12:56] LABS: AST(SGOT) 44 U/L (<=37); Alanine Aminotransfer ALT/SGPT 47 U/L (<=46); Albumin, Serum 4.5 g/dL (3.4-4.8); Alkaline Phosphatase 122 U/L (40-129); Anion Gap 9 (5-15); BUN 12 mg/dL (4-19); BUN/Creat Ratio 13.3 RATIO (10-20); Calcium,Total 11.0 mg/dL (7.6-11.0); Carbon Dioxide 26.8 mmol/L (21.0-32.0); Chloride 106 mmol/L (98-108); Globulin 2.5 g/dL (2.2-4.2); Glucose 136 mg/dL (70-99); Potassium 4.1 mmol/L (3.3-5.1)
== END | disposition home or self-care (01) ==
LOC: MTLAB 09:28
PROVIDERS: PCP Nurse Practitioner Family; Referring Provider Internal Medicine Rheumatology; Visit Provider Internal Medicine Rheumatology
DX: M06.4 Inflammatory polyarthropathy (principal); Z79.899 Other long term (current) drug therapy
CPT/HCPCS: 36415; 80053; 85025